=== PATIENT | female | born 1940 | race Caucasian/White ===

== ENCOUNTER → 2020-03-21 | Day surgery (SDC) | payer OTHER ==
--- NOTE | 2020-03-21 13:38 | RAD REPORT ---
EXAM DESCRIPTION: US - Breast Core BX w/US Guidance - 03/21/2020 9:52 am CLINICAL HISTORY: ICD N63.0 COMPARISON: March 11, 2020 ultrasound TECHNIQUE: The risks, benefits alternatives to the procedure were explained to the patient and infor med consent obtained. Skin and subcutaneous tissues anesthetized with lidocaine. Under sonographic guidance, four 14 gauge vacuum assisted core biopsies of the mass within the upper left breast obtained. 2 centimeter specimens taken. Materials given to pathology. Subsequently a localizing clip was placed into the mass. Patient experienced no immediate complication IMPRESSION: Vacuum assisted core biopsies of the left breast mass
== END ==
LOC: DS 08:23
PROVIDERS: ATTEND Family Medicine
DX: C50.912 Malignant neoplasm of unspecified site of left female breast (principal); Z17.0 Estrogen receptor positive status [ER+]
CPT/HCPCS: 19083; 88305

== ENCOUNTER 2023-04-27 11:33 | Inpatient (IN) | payer OTHER ==
--- OUTSIDE RECORDS SUMMARY | 2023-04-27 11:37 | XMS REPORT | Clinical Summary ---
:1940 Author Organization [facility] MD [facility] Address [address] [place] [address] Care Team Providers Name Role Phone Keely Vicente MD Primary Care Provider Shanthi Mckoy MD Unavailable Allergies No known active allergies Medications Medication Sig Dispensed Refills Start End Date Status Date aspirin 81 mg chewable CHEW 1 90 tablet 0 Active tabletIndications: TABLET BY 2 Cardiovascular stress MOUTH test abnormal EVERY DAY NIFEdipine (ADALAT CC) 0 Active 30 MG 24 hr tablet 2 hydroCHLOROthiazide TAKE 1 0 Active (HYDRODIURIL) 12.5 mg TABLET BY 2 tablet MOUTH EVERY DAY atorvastatin (LIPITOR) TAKE 1 30 tablet 0 Active 40 mg tabletIndications: TABLET BY 2 Cardiovascular stress MOUTH test abnormal EVERY DAY alendronate (FOSAMAX) 70 Take 1 12 tablet 4 Active mg tabletIndications: tablet (70 3 Osteoporosis mg) by mouth every 7 days. letrozole (FEMARA) 2.5 TAKE 1 90 tablet 3 Active mg tabletIndications: TABLET BY 3 Lobular carcinoma, NOS MOUTH of overlapping lesion of EVERY DAY breast <Female; Left>, Estrogen receptor positive status (ER+) NIFEdipine (PROCARDIA Take 1 90 tablet 1 11/09/19 Discontinued XL) 30 mg 24 hr tablet (30 0 23 tabletIndications: mg) by Hypertensive urgency mouth daily. hydroCHLOROthiazide TAKE 1 90 tablet 0 11/09/19 Discontinued (HYDRODIURIL) 25 mg TABLET BY 1 23 tabletIndications: MOUTH Essential hypertension EVERY DAY alendronate (FOSAMAX) 70 Take 1 12 tablet 3 08/06 Discontinued mg tabletIndications: tablet (70 1 22 (Reorder) Osteoporosis mg) by mouth every 7 days. letrozole (FEMARA) 2.5 Take 1 90 tablet 3 0 Discontinued mg tabletIndications: tablet 1 22 (Reorder) Infiltrating lobular (2.5 mg) carcinoma of overlapping by mouth sites of left female daily. breast, Estrogen receptor positive status (ER+) memantine (Namenda) 10 Take a 90 tablet 3 0 Discontinued mg tabletIndications: half 2 23 Dementia, not otherwise tablet (5 specified mg) twice a day for 14 days then 1 tablet (10 mg) twice a day. letrozole (FEMARA) 2.5 Take 1 90 tablet 3 0 Discontinued mg tabletIndications: tablet 2 23 Lobular carcinoma, NOS (2.5 mg) of overlapping lesion of by mouth breast <Female; Left>, daily. Estrogen receptor positive status (ER+) alendronate (FOSAMAX) 70 Take 1 4 tablet 0 09/03 Discontinued mg tabletIndications: tablet (70 2 22 Osteoporosis mg) by mouth every 7 days. alendronate (FOSAMAX) 70 TAKE 1 4 tablet 1 09/27 Discontinued mg tabletIndications: TABLET BY 2 22 Osteoporosis MOUTH EVERY 7 DAYS alendronate (FOSAMAX) 70 TAKE 1 4 tablet 0 11/07 Discontinued mg tabletIndications: TABLET BY 2 23 (Reorder) Osteoporosis MOUTH ONE TIME PER WEEK Active Problems Patient Care Coordination Note Formatting of this note might be differe nt from the original. The following people are approved to obt ain medical information about the patient via phone: Contact #1: Name: Denilson Roselyn Contact #2: Name: Phone Number: Contact #3: Name: Phone Number: Contact #4: Name: Phone Number: Problem Noted Date Non-diabetic hyperglycemia 08/12/2020 Atherosclerotic heart disease of [place] coronary arter y without angina 08/05/2020 pectoris Last Assessment & Plan: Formatting of th is note might be different from the original. Patient has a history of coronary artery disease with 50% stenosis of the mid RCA by cardiac catheterization 05/2020 she denies any anginal symptoms. She will therefore continue aspirin 81 mg daily and statin therapy. Dyslipidemia 08/05/2020 Last Assessment & Plan: Formatting of th is note might be different from the original. Lipid panel done 05/10/2020 shows a total cholesterol 228, triglycerides 109, and LDL 158. These labs were done soon after initiation of statin therapy in 04/2020. Healthy lifestyle modifications were rein forced. She will continue atorvastatin 4 0 mg daily. We will obtain follow-up lipid panel prior to her next visit. 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 Patient had a nuclear medicine stress te st 05/03/2020 that was done due to abnormal EKG that was found when she went to the emergency room 04/29 for a controlled hypertension. Stress test showed mild ar ea of ischemia in the mid LAD which is r eversible. Reviewed images were cardiology attending Dr. Bonilla since Dr. Alcazar is on out today. Patient was agreed to have a heart catheterization on Thursday 05/10 to further evaluate coronary fidel belinda. Patient asymptomatic for chest pain or any exertional symptoms. We will start patient on cardioprotective regimen of aspirin 81 milligrams by mouth daily and atorvastatin 40 milligrams by mouth daily. Atherosclerosis of aorta 05/06/2020 Last Assessment & Plan: Formatting of is note might be different from the original. Echocardiogram done on 04/29/2020 showed patient had a moderate amount of atherosclerotic plaques in the descending aorta and also in the setting of positive nuclear medicine stress test we will start tobias rosenthal on atorvastatin 40 milligrams by m outh daily and aspirin 81 milligrams by mouth daily I will repeat lipid panel when patient comes in on Saturday for her left heart catheterization for better guidance of statin therapy. Nicotine dependence 04/29/2020 Essential hypertension 04/28/2020 Last Assessment & Plan: Formatting of th is note might be different from the original. Blood pressure in the office today is 15 . Patient reports home blood pressure SBP is typically run in the 120s to 150s. However SBP is here in the Ismael during recent visits have been in the 150s to 160s. I've therefore added lisinopri l 10 mg daily to her medication regimen. She will also continue nifedipine ER 30 mg daily and hydrochlorothiazide 12.5 mg daily. 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 Cancer Staging: Clinical: Stage IB (cT2, cN0, cM0, G2, ER+, AK+, HER2-) - Signed by Keely Vicente MD on 05/25/2020 Pathologic: Stage Unknown (pT2, pNX, cM0 , G2, ER+, AK+, HER2-) - Signed by Tami Dukes NP on 05/31/2020 Encounters Date Type Specialty Care Team Description 03/01/2023 Refill Cardiology Jake Alcazar Cardiovascul mariela GARCIA stress test abn ormal 03/01/2023 Refill Breast Medical Safari-Hessari, Lobular ca rcinoma, NOS of overlapping lesion of breast <Female; Left>; Oncology TELLY Cooper Estrogen recept or positive status (ER+) 12/12/2022 Follow-Up Breast Medical Carmouche, Lobular carci noma, NOS of overlapping lesion of breast <Female; Left>; Oncology TELLY Valerio 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 us e of aromatase inhibitor 12/12/2022 Travel 11/16/2022 Orders Only Endocrinology Deejay, Osteoporosis ( Primary Dx); TOBIAS Owusu Deficiency of v itamin D3; 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 o f aromatase inhibitor 11/07/2022 Refill Endocrinology Preeti, Osteoporosis BRE Rizo 11/06/2022 Telemedicine Endocrinology Nadia Cramer MD Osteoporosi s (Primary Dx); Non-diabetic hy perglycemia; Deficiency of v itamin D3; 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 o f aromatase inhibitor 11/05/2022 Telephone Endocrinology Sallie Álvarez, BRE 10/30/2022 Refill Cardiology Muhammad, Haspavithra, Cardiovascula r PA stress test abn ormal 10/30/2022 Refill Cardiology Jake Alcazar, Cardiovascul mariela GARCIA stress test abn ormal 10/22/2022 Refill Endocrinology Sanjo, Shivam, Osteoporosis OPERATIONS LABEL CLERK 10/11/2022 Refill Cardiology MouhayarJake, Cardiovascul mariela MD stress test abn ormal 10/10/2022 Orders Only Endocrinology Deejay, Osteoporosis ( Primary Dx); TOBIAS Owusu Deficiency of v itamin D3 09/27/2022 Refill Endocrinology Sanjo, Shivam, Osteoporosis OPERATIONS LABEL CLERK 08/31/2022 Refill Endocrinology Sanjo, Shivam, Osteoporosis OPERATIONS LABEL CLERK 08/28/2022 Telephone Neuro-Oncology Chey Haas RN 08/09/2022 Documentation Cardiology Nieves Amanda RN 08/08/2022 Orders Only Endocrinology Sanjo, Shivam, Osteoporosis ( Primary Dx); OPERATIONS LABEL CLERK Non-diabetic hy perglycemia; Deficiency of v itamin D3; halfway use o f aromatase inhibitor 08/06/2022 Documentation Endocrinology Nieves Hardwick RN 08/06/2022 Refill Endocrinology Nieves Hardwick Osteoporosis Lalita Olson RN 08/05/2022 Refill Cardiology Jake Alcazar, Cardiovascul mariela GARCIA stress test abn ormal 06/29/2022 Refill Cardiology Jake Alcazar [facility] Visit Breast Medical Safari-Niecyari, Lobular ca rcinoma, NOS of overlapping lesion of breast <Female; Left> (Primary Dx); Oncology TELLY Cooper 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; Penny, Estrogen recept or positive status (ER+) TELLY Valerio 06/06/2022 Hospital Encounter Radiology Mely Stack ar carcinoma, NOS of overlapping lesion of breast <Female; Left>; L, OPERATIONS LABEL CLERK halfway use o f aromatase inhibitor 06/06/2022 Travel 05/10/2022 Refill Cardiology Muhammad Hasana, Cardiovascula r PA stress test abn ormal after 04/27/2022 Immunizations Name Administration Dates Next Due Pfizer SARS-CoV-2 Vaccination (Purple Cap) 11/27/2020, 10/09 Surgical History Surgery Date Site/Laterality Comments AK MASTECTOMY SIMPLE COMPLETE 05/26/2020 Breast/Left Pr ocedure: TOTAL MASTECTOMY; Surgeon: Keely Vicente MD; Location: [facility] OR; Service: BREAST Medical History Medical History Date Comments Personal history of stroke 1994 from aneurysm Allergic rhinitis Chronic bronchitis Osteoporosis 2018 Breast cancer 04/2020 Dementia Family History Medical History Relation Name Comments Cervical cancer Daughter CAROLEE ZELAYA Lung cancer Father CARLOS SESAY Lung cancer Mother CHICHO SESAY Breast cancer Neg Hx Ovarian cancer Neg Hx Relation Name Status Comments Daughter CAROLEE ZELAYA Other in 2010 with com plete hysterectomy Father CARLOS SESAY Mother CHICHO SESAY Social History Tobacco Use Types Packs/Day Years Used Date Smoking Tobacco: Every Day Cigarettes 1 59 S tarted: 03/07/1961 Smokeless Tobacco: Never Tobacco Cessation: Ready to Quit: Yes; C ounseling Given: Yes Alcohol Use Standard Drinks/Week Comments Never 0 (1 standard drink = 0.6 oz pure alcoho l) Education Answer Date Recorded What is the highest level of school you have High school gra duate 04/20/2020 completed or the highest degree you have received? Sex Assigned at Date Recorded Female 04/13/2020 5:03 PM CDT Job Start Date Occupation Industry Not on file Not on file Not on file Obstetrics History Para Term AB IAB SAB Ectopic Multiple Living Live Births 4 4 4 4 4 Date Outcome GA Total Labor/2nd/3rd Weight Sex Delivery Anes PTL Kalyani A 1 A5 Name Clin Labor 1959 Term F Vag-Spont Risa ng Complications: None 1961 Term M Vag-Spont Living Complications: None 1964 Term F Vag-Spont Living Complications: None 1971 Term M Vag-Spont Living Complications: None Comments Menarche at age 17 years Para at age 20 years BC 6-7 years total HRT none Breastfeed none Last Filed Vital Signs Vital Sign Reading Time Taken Comments Blood Pressure 118/72 12/12/2022 3:41 PM 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 SPECIALIST Pulse 97 12/12/2022 3:41 PM RETAIL 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 SPECIALIST Temperature 36.7 C (98.1 F) 06/06/2022 12:55 PM CDT Respiratory Rate 18 12/12/2022 3:41 PM RETAIL 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 SPECIALIST Oxygen Saturation 97% 12/12/2022 3:41 PM RETAIL 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 SPECIALIST Inhaled Oxygen Concentration - - Weight 51.9 kg (114 lb 6.7 oz) 12/12/2022 3:41 PM RETAIL 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 SPECIALIST Height - - Body Mass Index 22.17 08/04/2020 11:17 AM CDT Plan of Treatment Date Type Specialty Care Team Description 06/05/2023 Appointment Radiology Rob Francis, OPERATIONS LABEL CLERK [address] [place], [place] [address] (Wo rk) 06/05/2023 Follow-Up Breast Medical Oncology Teodoro Parikh, OPERATIONS LABEL CLERK [address] [place], [place] [address] (Wo rk) Health Maintenance Due Date Last Done Comments COVID-19 Vaccination (3 - Pfizer risk 12/25/2020 11/27/2020 , 11/06/2020 series) Medical Devices Implanted Type Area Substation Manager Device Identifier Shelf Exp iration Model / Date Serial / L ot Aneurysm Clips Description: pt. has aneurysm clips plac ed in no info per Dr. Jeffers DO NOT PROCEED WITH MRI Procedures Procedure Name Priority Date/Time Associated Diagnosis Comme nts MAMMO DIGITAL Routine 06/06/2022 11:42 Lobular carcinoma, Resu lts for this DIAGNOSTIC RIGHT W AM CDT NOS of overlapping pro cedure are in DARSHAN lesion of breast the results <Female; Left> section. halfway use of aromatase inhibitor after 04/27/2022 Results Mammography Digital Diagnostic Right with Darshan (06/06/2022 11:42 AM CDT) Anatomical Region Laterality Modality Breast Right Mammography Specimen (Source) Anatomical Collection Method Collection Time Re ceived Time Location / / Volume Laterality 06/06/2022 11:43 AM CDT Impressions 06/06/2022 11:43 AM CDT There is no mammographic evidence of malignancy. Follow-up mammogram in 1 year is recomme nded. BI-RADS Category 1: Negative Narrative 06/06/2022 11:43 AM CDT CLINICAL INDICATION: Patient is a 81 year old female and is s een for history of breast cancer MAMMO DIGITAL DIAGNOSTIC RIGHT W DARSHAN Digital Mammogram evaluated with Compute r Aided Detection (CAD). COMPARISON: The present examination has been compare d to prior imaging studies performed at an outside location on 02/24/2020, and a [facility] on 04/19/2020 and 04/17/2021. FINDINGS: There are scattered areas of fibroglandu lar density. No dominant mass, distortion, or suspici ous calcifications are identified. There are no significant changes from [facility] prior study. Tomosynthesis performed in CC and MLO pr ojections. Procedure Note Loren Frausto MD - 06/06/2022Format ting of this note might be different from the original. CLINICAL INDICATION: Patient is a 81 year old female and is s een for history of breast cancer MAMMO DIGITAL DIAGNOSTIC RIGHT W DARSHAN Digital Mammogram evaluated with Compute r Aided Detection (CAD). COMPARISON: The present examination has been compare d to prior imaging studies performed at an outside location on 02/24/2020, and a [facility] on 04/19/2020 and 04/17/2021. FINDINGS: There are scattered areas of fibroglandu lar density. No dominant mass, distortion, or suspici ous calcifications are identified. There are no significant changes from [facility] prior study. Tomosynthesis performed in CC and MLO pr ojections. IMPRESSION: There is no mammographic evidence of mal ignancy. Follow-up mammogram in 1 year is recomme nded. BI-RADS Category 1: Negative Mely Stack APRN IMG MAMMOGRAPHY ORDERABLES after 04/27/2022 Insurance Payer Benefit Plan / Subscriber ID Effective Dates Phone Addre ss Type Group AETNA MEDICARE AETNA MEDICARE [id number] 2022-Presen [address] [place] [address] ([address] [place] [address] Advance Directives Code Status Date Activated Date Inactivated Comments Full Code 05/26/2020 1:15 PM 05/27/2020 11:54 AM Code Status Date Activated Date Inactivated Comments Full Code 04/28/2020 1:46 PM 04/29/2020 7:13 PM Care Teams Director Of Aviation Relationship Specialty Start Date End Date Keely Vicente MD PCP - General Breast Surgery 04/20/[address] [place] [id number] Shanthi Mckoy MD Physician Medical Oncology 04/20/[address] [place] [id number]
--- OUTSIDE RECORDS SUMMARY | 2023-04-27 11:38 | XMS REPORT | Continuity of Care Document ---
:1940 Author Organization [facility] t Address [address] [place] [address] [address] [place] [address] Care Team Providers Name Role Phone [phone] Primary Care Physician Unavailable SYSTEM, PROVIDER NOT IN Attending Clinician Unavailable VIOLA CASILLAS Attending Clinician Unavailable ATA BRUNO Attending Clinician Unavailable LILLIE BIRCH Attending Clinician Unavailable Jake Alcazar MD Attending Clinician Chucky Pérez APRN Attending Clinician [phone] [place] Francis APRN Attending Clinician [phone] [place] FRANCIS Attending Clinician Unavailable Francoise Camacho Attending Clinician Sallie Álvarez RN Attending Clinician Unavailable Nadia Cramer MD Attending Clinician NADIA CRAMER Attending Clinician Unavailable Carmen Bolton Attending Clinician Shivam Ewing APRN Attending Clinician Chey Haas RN Attending Clinician Unavailable Nieves Amanda RN Attending Clinician Unavailable Nieves Hardwick RN Attending Clinician Unavailable MELY CASTRO Attending Clinician Unavailable Mely Castro APRN Attending Clinician CHUCKY PÉREZ Attending Clinician Unavailable KARSON HERNÁNDEZ Attending Clinician Unavailable JENIFER CAMARENA Attending Clinician Unavailable JULIET FARRELL Attending Clinician Unavailable BUCKY KOWALSKI Attending Clinician Unavailable LILLIE SPANN Attending Clinician Unavailable EVAN JONES Attending Clinician Unavailable TED MACIAS Attending Clinician Unavailable BECCA DIEHL Attending Clinician Unavailable BYRON OSBORNE Attending Clinician Unavailable SARAH FREEMAN Attending Clinician Unavailable SAM WILLOUGHBY Attending Clinician Unavailable BON RAYMUNDO Attending Clinician Unavailable ABDIRAHMAN MORFIN Attending Clinician Unavailable ATA BRUNO Admitting Clinician Unavailable BON RAYMUNDO Admitting Clinician Unavailable Payers Payer Name Policy Type Policy Number Effective Date Expiration Date S artie MEDICARE PART A [id number] 2006 AND B 00:00:00 [employer] O [id number] 2000 00:00:00 Problems Condition Condition Condition Status Onset Resolution Last Treating Co mments Source Name Details Category Date Date Treatment Clinician Date Non-diabet Non-diabet Disease Active 2019-10 [place] ic ic 1-06 [place] [facility] 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 Patient has a history of coronary artery disease with 50% stenosis of the mid RCA by cardiac catheteri zation 05/2020 she denies any anginal symptoms. She will therefore continue aspirin 81 mg daily and statin therapy. Dyslipidem Dyslipidem Disease Active 2019-10 Last U [place] ia ia 0-30 Assessmen ity of 00:00: t & Plan: [place] 00 Desire GARCIA g of this Anderso note n might be Cancer different Center from the original. Lipid panel done 05/10/2020 shows a total cholester ol 228, triglycer ides 109, and LDL 158. These labs were done soon after initiatio n of statin therapy in 04/2020. Healthy lifestyle modificat ions were reinforce d. She will continue atorvasta tin 40 mg daily. We will obtain follow-up lipid panel prior to her next visit. 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 Uni vers use of use of 0-29 [place] of aromatase aromatase 00:[place] inhibitor inhibitor 00 [place] Maximino mckinney [facility] Coronary Coronary Disease Active Unive rs arterioscl arterioscl 8-19 it y of erosis erosis 00:00: [place] 00 MD Maximino mckinney [facility] Current Current Disease Active Univers use of use of 8-19 ity of aspirin aspirin 00:00: 00 MD Maximino mckinney [facility] Chronic Chronic Disease Active Univers obstructiv obstructiv 8-19 it y of e e 00:00: [place] pulmonary pulmonary 00 disease disease [facility] Impaired Impaired Disease Active Unive rs cognition cognition 8-19 ity of 00:00: 00 MD Maximino mckinney [facility] 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-ca 8-19 it y of eze eze 00:00: [place] malnutriti malnutriti 00 on on [facility] 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 Patient had a nuclear medicine stress test 0 that was done due to abnormal EKG that was found when she went to the emergency room 04/29 for a controlle d hypertens ion. Stress test showed mild area of ischemia in the mid LAD which is reversibl e. Reviewed images were cardiolog y attending Dr. Bonilla since Dr. Alcazar is on out today. Patient was agreed to have a heart catheteri zation on Thursday 05/10 to further evaluate coronary anatomy. Patient asymptoma tic for chest pain or any exertiona l symptoms. We will start patient on cardiopro tective regimen of aspirin 81 milligram s by mouth daily and atorvasta tin 40 milligram s by mouth daily. Atheroscle Atheroscle Disease Active Last U nivers rosis of rosis of 05-06 Assessmen ity of aorta aorta 00:00: t & Plan: [place] Desire bales of this Anderso note n might be Cancer different Center from the original. Echocardi ogram done on 04/29/2020 showed patient had a moderate amount of atheroscl erotic plaques in the descendin g aorta and also in the setting of positive nuclear medicine stress test we will start patient on atorvasta tin 40 milligram s by mouth daily and aspirin 81 milligram s by mouth daily I will repeat lipid panel when patient comes in on Saturday for her left heart catheteri zation for better guidance of statin therapy. Nicotine Nicotine Disease Active Unive rs dependence dependence 04-29 it y of 00:00: MD Maximino mckinney [facility] Essential Essential Disease Active Last Uni vers hypertensi hypertensi 04-28 Assessmen ity of on on 00:00: t & Plan: [place] Desire bales of this Anderso note n might be Cancer different Center from the original. Blood pressure in the office today is 156/68. Patient reports home blood pressure SBP is typically run in the 120s to 150s. However SBP is here in the Ismael during recent visits have been in the 150s to 160s. I've therefore added lisinopri l 10 mg daily to her medicatio n regimen. She will also continue nifedipin e ER 30 mg daily and hydrochlo rothiazid e 12.5 mg daily. Abnormal Abnormal Disease Active Unive rs electrocar electrocar 04-28 it y of diogram diogram 00:00: [place] (ECG) (ECG) 00 (EKG) (EKG) [facility] Estrogen Estrogen Disease Active Unive rs receptor receptor 7-15 ity of positive positive 00:00: [place] status status 00 (ER+) (ER+) [facility] Infiltrati Infiltrati Disease Active U nivers ng lobular ng lobular 7-12 it y of carcinoma carcinoma 00:00[place] of of 00 MD poncho isaac An derso g sites of g sites of n left left Cancer 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 Family History Family Member Diagnosis Comments Start Date Stop Date Source Natural daughter Cervical cancer Uni [facility] [place] [facility] [place] Natural father Lung cancer [facility] [place] [facility] [facility] [place] Natural mother Lung cancer [facility] [place] [facility] r [place] Social History Social Habit Start Date Stop Date Quantity Comments Source History of tobacco 1961-03-07 Smokes tobacco Un iversity of use 00:00:00 daily [place] MD Bazan [facility] Alcohol intake 2022-12-12 2022-12-[address] [facility] University 00:00:00 00:00:00 non-drinker [place] MD Blake mckenzie (finding) [facility] Cigarettes smoked 2020-04-29 2020-04-29 Univers ity of current (pack per 00:00:00 00:00:00 [place] Fauzia Lopez ) - Reported Cancer Ce nter Cigarette 2020-04-29 2020-04-29 University of pack-years 00:00:00 00:00:00 [place] MD Bazan [facility] Tobacco use and 2020-04-29 2020-04-29 Smokeless Universit y of exposure 00:00:00 00:00:00 tobacco non-user [facility] Education 2020-04-20 2020-04-20 13 University of 00:00:00 00:00:00 [place] MD Bazan [facility] Sex [birth year] F Universit y of 00:00:00 00:00:00 [place] MD Bazan [facility] Smoking Status Start Date Stop Date Source Smokes tobacco daily 2020-04-29 00:00:00 Univers ity of [facility] Medications Ordered Filled Start Stop Current Ordering Indication Dosage Frequency Signature Comments Components Source Medication Medication Date Date Medication? Clinician (SIG) Name Name letrozole Yes Estrogen TAKE 1 Un lis (FEMARA) 5-26 receptor TABLET BY it y of 2.5 mg 00:00: positive MOUTH [place] tablet 00 status EVERY DAY (ER+) Maximino mckinney [facility] alendronate Yes Osteoporosi 70mg Take 1 Univers (FOSAMAX) 2- s tablet (70 ity of 70 mg 00:00: mg) by [place] tablet 00 mouth every 7 Anderso days. n [facility] alendronate 2021-10- No Osteoporosi TAKE 1 Univers (FOSAMAX) 2- 02- s TABLET BY ity of 70 mg 00:00: 00:00 MOUTH ONE [place] tablet 00 :00 TIME PER MD WEEK [facility] alendronate 2021-10- No Osteoporosi TAKE 1 Univers (FOSAMAX) 1- 12- s TABLET BY ity of 70 mg 00:00: 00:00 MOUTH [place] tablet 00 :00 EVERY 7 MD DAYS [facility] alendronate 2021-10- No Osteoporosi 70mg Take 1 Univers (FOSAMAX) - 11- s tablet (70 ity of 70 mg 00:00: 00:00 mg) by [place] tablet 00 :00 mouth every 7 [place] days. [facility] letrozole 2022- No Estrogen 2.5mg Take 1 Univers (FEMARA) 8 05-26 receptor tablet ity of 2.5 mg 00:00: 00:00 [place] (2.5 mg) [place] tablet 00 :00 status by mouth (ER+) daily. [facility] atorvastati Yes Cardiovascu TAKE 1 Univers n (LIPITOR) 6-15 lar stress TABLET BY ity of 40 mg 00:00: test MOUTH [place] tablet 00 abnormal EVERY DAY MD Stanton [facility] hydroCHLORO Yes TAKE 1 Univ ers thiazide 2-02 TABLET BY ity of (HYDRODIURI 00:00: MOUTH [place] L) 12.5 mg 00 EVERY DAY MD tiff Stanton [facility] aspirin 81 Yes Cardiovascu CHEW 1 Univers mg chewable 1-26 lar stress TABLET BY ity of tablet 00:00: test MOUTH [place] 00 abnormal EVERY DAY MD Maximino mckinney [facility] NIFEdipine Yes Univers (ADALAT CC) 1-09 ity of 30 MG 24 hr 00:00: [place] tablet 00 MD Stanton [facility] memantine 2022- No Dementia, Take a Univers (Namenda) 1-04 03-08 not half ity of 10 mg 00:00: 00:00 otherwise tablet (5 [place] tablet 00 :00 specified mg) twice MD a day for Anderso 14 days n then 1 Cancer tablet (10 Center mg) twice a day. letrozole 2021- No Estrogen 2.5mg Take 1 Univers (FEMARA) 04-17 receptor tablet ity of 2.5 mg 00:00: 00:00 positive (2.5 mg) [place] tablet 00 :00 status by mouth MD (ER+) daily. [facility] alendronate 2021- No Osteoporosi 70mg Take 1 Univers (FOSAMAX) 02-03 s tablet (70 ity of 70 mg 00:00: 00:00 mg) by [place] tablet 00 :00 mouth MD every 7 [place] days. [facility] hydroCHLORO 2022- No Essential TAKE 1 Univers thiazide 12-06 hypertensio TABLET BY ity of (HYDRODIURI 00:00: 00:00 n MOUTH [place] L) 25 mg 00 :00 EVERY DAY MD tablet [facility] NIFEdipine 2019-10- No Hypertensiv 30mg Take 1 Univers (PROCARDIA 10-15 e urgency tablet (30 ity of XL) 30 mg 00:00: 00:00 mg) by [place] 24 hr 00 :00 mouth MD tablet daily. [facility] Immunizations Ordered Filled Immunization Date Status Comments [facility] Immunization Name Name Pfizer SARS-CoV-2 2020-11-27 Completed Univer sity of Vaccination (Purple 00:00:[address] [place] [facility]) [facility] Center Pfizer SARS-CoV-2 2020-11-06 Completed Univer sity of Vaccination (Purple 00:00:00 [facility]) [facility] Vital Signs Vital Name Observation Time Observation Value Comments Source WEIGHT 2020-10-17 12:23:59 50.9 kg WEIGHT 2020-08-05 15:49:33 50 kg HEIGHT 2020-08-04 11:17:30 153 cm WEIGHT 2020-08-04 11:17:30 49.5 kg WEIGHT 2020-06-08 12:26:00 46.8 kg WEIGHT 2020-05-25 10:30:00 45.8 kg WEIGHT 2020-05-23 11:46:45 46.4 kg WEIGHT 2020-05-03 12:02:00 48.1 kg HEIGHT 2020-05-03 09:48:00 153 cm WEIGHT 2020-05-03 09:48:00 48.1 kg HEIGHT 2020-04-28 15:45:00 153 cm WEIGHT 2020-04-28 15:44:00 48.1 kg Systolic blood 2022-12-12 21:41:20 118 mm[Hg] Univer sity of pressure [place] MD [facility] Diastolic blood 2022-12-12 21:41:20 72 mm[Hg] Unive rsity of pressure [place] MD [facility] Heart rate 2022-12-12 21:41:20 97 /min Universi ty [facility] MD [facility] Respiratory rate 2022-12-12 21:41:20 18 /[facility] Body weight 2022-12-12 21:41:20 51.9 kg Universi ty [facility] MD [facility] BMI 2022-12-12 21:41:20 22.17 kg/m2 Universi ty [facility] MD [facility] Oxygen saturation in 2022-12-12 21:41:20 97 /min [facility] Arterial blood by [place] shoemaker Pulse oximetry [facility] Body temperature 2022-06-06 17:55:47 36.72 Fabiana [facility] Procedures Procedure Date / Time Performed Performing Clinician Sourc e MAMMO DIGITAL 2022-06-06 16:42:19 Mely Castro [facility] DIAGNOSTIC RIGHT W MD [place] TREVINO [place] Plan of Care Planned Activity Planned Date Details Comments Source Future Scheduled 2023-03-01 COVID-19 Vaccination Uni [facility] Test 13:40:45 (3 - Pfizer risk [place] Cancer series) [code = Center COVID-19 Vaccination (3 - Pfizer risk series)] Encounters Start End Encounter Admission Attending Care Care Encounter Source Date/Time Date/Time Type Type Clinicians Facility Department ID 2022-08-16 Outpatient KALEIGH MEI MDA [id number] 13:26:49 PROVIDER [place] mckinney 2020-05-23 Outpatient KALEIGH CASILLAS MDA [id number] 17:50:20 VIOLA mckinney 2020-05-03 Outpatient MDA MDA [id number] 09:47:29 Andaishwarya mckinney 2020-05-02 Outpatient MDA MDA [id number] [facility]:25[facility] 2020-[facility]20 Outpatient ATA RBUNO MDA Breast Judith [id number] 17:32:13 Andaishwarya mckinney 2020-04-20 Outpatient BIRCH, MDA MDA [id number] 14:56:37 LILLIE mckinney 2020-04-20 Outpatient BIRCH, MDA MDA [id number] 14:28:12 LILLIE mckinney 2020-04-18 Outpatient [facility], MDA MDA [id number] 08:19:59 PROVIDER [place] mckinney 2023-03-01 2023-03-01 Refill Ottoniel 1.2.840.1 [id number] Univers 00:00:00 00:00:00 Jake 75971.1.1 ity of 3.412.2.7 [place] .3.976930 .8 [facility] 2023-03-01 2023-03-01 Refill Brunilda 1.2.840.1 [id number] Univers 00:00:00 00:00:00 Chucky stover 03611.1.1 i ty of 3.412.2.7 [place] .3.181647 .8 [facility] 2022-12-12 2022-12-12 Follow-Up Penny 1.2.840.1 [id number] [facility] 16:00:00 16:11:38 Cheyenne 47747.1.1 it y of 3.412.2.7 [place] .3.930649 .8 [facility] 2022-12-12 2022-12-12 Outpatient EL STACEYArlene, MDA MDA [id number] 15:26:18 16:11:38 CHEYENNE Lozano [facility] faye 2022-12-12 2022-12-12 Travel 1.2.840.1 1.2.633.414 [id number] [facility] 00:00:00 00:00:00 19110.1.1 350.1.13.41 ity of 3.412.2.7 2.2.7.3.698 [place] .3.266323 084.8 .8 [facility] 2022-11-16 2022-11-16 Orders Deejay, 1.2.840.1 [id number] Univers 00:00:00 00:00:00 Only Francoise 57258.1.1 ity of 3.412.2.7 [place] .3.293317 .8 [facility] 2022-11-07 2022-11-07 Refill Surima, 1.2.840.1 [id number] Univers 00:00:00 00:00:00 Sallie 54973.1.1 ity of 3.412.2.7 [place] .3.783597 MD Orta8 [facility] 2022-11-06 2022-11-06 [facility] 1.2.840.1 [id number] [facility] 13:30:00 13:48:09 [place] 41321.1.1 ity of 3.412.2.7 [place] .3.379814 MD Orta8 [facility] 2022-11-06 2022-11-06 Outpatient NADIA CRAMER [facility] [id number] 13:04:30 13:48:09 [facility] 2022-11-05 2022-11-05 Telephone Surima, 1.2.840.1 [id number] Univers 00:00:00 00:00:00 Sallie 29320.1.1 ity of 3.412.2.7 [place] .3.187558 MD Orta8 [facility] 2022-10-30 2022-10-30 Refill Muhammad, 1.2.840.1 [id number] Univers 00:00:00 00:00:00 Hasana 98649.1.1 ity of 3.412.2.7 [place] .3.863403 MD Orta8 [facility] 2022-10-30 2022-10-30 Refill Ottoniel 1.2.840.1 [id number] Univers 00:00:00 00:00:00 Jake 27163.1.1 ity of 3.412.2.7 [place] .3.335737 MD [place] [facility] 2022-10-22 2022-10-22 Shivam Brown 1.2.840.1 [id number] Univers 00:00:00 00:00:00 99124.1.1 ity of 3.412.2.7 [place] .3.075181 MD [place] [facility] 2022-10-11 2022-10-11 Georgina Alcazar 1.2.840.1 [id number] Univers 00:00:00 00:00:00 Jake 95020.1.1 ity of 3.412.2.7 [place] .3.599864 MD [place] [facility] 2022-10-10 2022-10-10 Carin Villalba 1.2.840.1 [id number] Univers 00:00:00 00:00:00 Only Francoise 52252.1.1 ity of 3.412.2.7 [place] .3.356301 MD [place] [facility] 2022-09-27 2022-09-27 Shivam Brown 1.2.840.1 [id number] Univers 00:00:00 00:00:00 33680.1.1 ity of 3.412.2.7 [place] .3.563936 MD [place] [facility] 2022-08-31 2022-08-31 Shivam Brown 1.2.840.1 [id number] Univers 00:00:00 00:00:00 01057.1.1 ity of 3.412.2.7 [place] .3.152531 MD [place] [facility] 2022-08-28 2022-08-28 Telephone Waldo, 1.2.840.1 [id number] Univers 00:00:00 00:00:00 Prentiss 12282.1.1 i ty of T 3.412.2.7 [place] .3.338091 MD [place] [facility] 2022-08-09 2022-08-09 Documentat Treasure, 1.2.840.1 [id number] Univers 00:00:00 00:00:00 ion Nieves 29750.1.1 ity of 3.412.2.7 [place] .3.534996 MD Orta8 [facility] 2022-08-08 2022-08-08 Orders Kaylin Shivam 1.2.840.1 [id number] Univers 00:00:00 00:00:00 Only 00834.1.1 ity of 3.412.2.7 [place] .3.441983 MD [place] [facility] 2022-08-06 2022-08-06 Documentat Nieves Hardwick 1.2.840.1 [id number] Univers 00:00:00 00:00:00 ion Lalita O 26280.1.1 i ty of 3.412.2.7 [place] .3.621777 MD [place] [facility] 2022-08-06 2022-08-06 Nieves [place] 1.2.840.1 [id number] Univers 00:00:00 00:00:00 Lalita O 74799.1.1 i ty of 3.412.2.7 [place] .3.795747 MD [place] [facility] 2022-08-05 2022-08-05 Georgina Alcazar 1.2.840.1 [id number] Univers 00:00:00 00:00:00 Jake 26321.1.1 ity of 3.412.2.7 [place] .3.938352 MD [place] [facility] 2022-06-29 2022-06-29 Georgina Alcazar 1.2.840.1 [id number] Univers 00:00:00 00:00:00 Jake 68265.1.1 ity of 3.412.2.7 [place] .3.394346 MD Orta8 [facility] [place] 2022-06-06 2022-06-06 Outpatient SAPNA CASTRO MDA MDA [id number] 10:40:43 23:59:00 MELY mckinney 2022-06-06 2022-06-06 [facility] Sreekanth, 1.2.840.1 [id number] [facility] 10:40:43 23:59:00 Encounter Mely Calvert 58766.1.1 i ty of 3.412.2.7 [place] .3.023915 .8 [facility] 2022-06-06 2022-06-06 Office Chucky Pérez 1.2.840.1 [id number] [facility] 13:00:00 13:30:00 Visit Cheyenne Francis 02942.1.1 ity of 3.412.2.7 [place] .3.150634 MD Orta8 [facility] 2022-06-06 2022-06-06 Outpatient SAPNA DIMAS MDA [employer] [id number] 12:37:06 12:37:06 CHUCKY STOVER And sitao faye 2022-06-06 2022-06-06 Travel 1.2.840.1 1.2.748.410 [id number] Univers 00:00:00 00:00:00 68824.1.1 350.1.13.41 ity of 3.412.2.7 2.2.7.3.698 [place] .3.992358 084.8 MD Orta8 [facility] 2022-05-10 2022-05-10 Refill Muhammad, 1.2.840.1 [id number] [facility] 00:00:00 00:00:00 Hasana 63742.1.1 ity of 3.412.2.7 [place] .3.073991 MD Orta8 [facility] [place] 2021-11-21 2021-11-21 Outpatient SAPNA HERNÁNDEZ MDA MDA [id number] 11:01:18 11:56:01 KARSON mckinney 2021-09-05 2021-09-05 Outpatient SAPNA CAMARENA MDA MDA [id number] 13:49:58 13:49:58 JENIFER mckinney 2021-08-14 2021-08-14 Outpatient SAPNA FARRELL, MDA MDA [id number] MD 10:37:25 10:37:25 JULIET mckinney 2021-04-17 2021-04-17 Outpatient SAPNA HERNÁNDEZ, MDA MDA [id number] MD 09:02:01 23:59:00 KARSON mckinney 2021-04-17 2021-04-17 Outpatient SAPNA HERNÁNDEZ, MDA MDA [id number] MD 11:08:31 11:48:48 KARSON mckinney 2020-11-27 2020-11-27 Outpatient ATA TRAN MDA MDA [id number] MD 11:58:10 12:49:21 [place] mckinney 2020-11-06 2020-11-06 Outpatient SAPNA KOWALSKI, MDA MDA [id number] MD 12:21:40 12:41:08 BUCKY mckinney 2020-10-17 2020-10-17 Outpatient SAPNA FARRELL, MDA MDA [id number] 11:15:00 23:59:00 JULIET mckinney 2020-10-17 2020-10-17 Outpatient SAPNA HERNÁNDEZ, MDA MDA [id number] 12:10:36 13:06:00 KARSON mckinney 2020-08-30 2020-08-30 Outpatient SAPNA CAMARENA, MDA MDA [id number] MD 08:58:09 08:58:09 JENIFER mckinney 2020-08-19 2020-08-19 Outpatient SAPNA CAMARENA, MDA MDA [id number] 11:31:56 11:31:56 JENIFER mckinney 2020-08-16 2020-08-16 Outpatient SAPNA SPANN, MDA MDA [id number] MD 07:45:33 23:59:00 LILLIE mckinney 2020-08-16 2020-08-16 Outpatient SAPNA CAMARENA, MDA MDA [id number] MD 08:40:53 08:40:53 JENIFER mckinney 2020-08-09 2020-08-09 Outpatient SAPNA CAMARENA MDA MDA [id number] 11:14:47 11:14:47 JENIFER mckinney 2020-08-05 2020-08-05 Outpatient SAPNA JONES, MDA MDA [id number] MD 15:42:17 16:25:54 VIANNEYREYNALDOJax Bazan so n 2020-08-04 2020-08-04 Outpatient SAPNA CAMARENA, MDA MDA [id number] MD 12:53:23 12:53:23 JENIFER [place] o [place] 2020-08-04 2020-08-04 Outpatient SAPNA MACIAS, MDA MDA [id number] MD 10:54:25 11:53:55 TED [place] o [place] 2020-08-04 2020-08-04 Outpatient SAPNA SPANN, MDA MDA [id number] MD 09:32:53 10:12:07 LILLIE [place] 2020-07-12 2020-07-12 Outpatient SAPNA CAMARENA, MDA MDA [id number] MD 00:00:00 00:00:00 JENIFER [place] 2020-06-08 2020-06-08 Outpatient SAPNA HERNÁNDEZ, MDA MDA [id number] MD 11:59:30 12:41:48 KARSON Grangerers o n 2020-06-08 2020-06-08 Outpatient ATA TRAN MDA MDA [id number] 11:27:29 11:27:29 [place] o n 2020-06-08 2020-06-08 Outpatient ATA TRAN MDA MDA [id number] 10:30:52 10:30:52 [place] 2020-06-08 2020-06-08 Outpatient ATA TRAN MDA MDA [id number] 00:00:00 00:00:00 [place] 2020-06-01 2020-06-01 Outpatient ATA TRAN MDA MDA [id number] 11:15:07 11:15:07 [place] 2020-05-30 2020-05-30 Outpatient ATA TRAN MDA MDA [id number] MD 00:00:00 00:00:00 [place] 2020-05-26 2020-05-27 Outpatient ATA TRAN MDA Breast Judith 1 [id number] MD 10:14:00 09:12:00 [place] 2020-05-26 2020-05-26 Outpatient SAPNA DIEHL, MDA MDA [id number] 10:18:34 23:59:00 BECCA Grangerers o n 2020-05-25 2020-05-25 Outpatient SAPNA DIEHL, MDA MDA [id number] MD 11:45:41 23:59:00 BECCA mckinney 2020-05-25 2020-05-25 Outpatient ATA TRAN MDA MDA [id number] 10:08:18 11:54:52 [place] m[place] 2020-05-24 2020-05-24 Outpatient COLLEEN, MDA MDA [id number] MD 00:00:00 00:00:00 TED [place] 2020-05-23 2020-05-23 Outpatient ATA TRAN MDA MDA [id number] 15:40:49 15:40:49 [place] 2020-05-23 2020-05-23 Outpatient SAPNA DIEHL, MDA MDA [id number] MD 11:35:30 14:17:18 BECCA mckinney 2020-05-23 2020-05-23 Outpatient SAPNA DIEHL, MDA MDA [id number] MD 11:14:47 11:14:47 BECCA mckinney 2020-05-23 2020-05-23 Outpatient SAPNA DIEHL, MDA MDA [id number] 00:00:00 00:00:00 BECCA [place] 2020-05-20 2020-05-20 Outpatient SAPNA OSBORNE, MDA MDA [id number] MD 00:00:00 00:00:00 BYRON [place] 2020-05-19 2020-05-19 Outpatient SAPNA OSBORNE, MDA MDA [id number] MD 12:06:21 12:06:21 BYRON [place] 2020-05-18 2020-05-18 Outpatient ATA TRAN MDA MDA [id number] 15:17:20 15:17:20 [place] 2020-05-18 2020-05-18 Outpatient SAPNA DIEHL, MDA MDA [id number] MD 00:00:00 00:00:00 BECCA [place] 2020-05-13 2020-05-13 Outpatient SAPNA CAMARENA, MDA MDA [id number] MD 12:34:58 23:59:00 JENIFER [place] 2020-05-13 2020-05-13 Outpatient SAPNA CAMARENA, MDA MDA [id number] 10:13:15 10:13:15 JENIFER [place] o faye 2020-05-10 2020-05-10 Outpatient SAPNA JONES, MDA MDA [id number] MD 09:37:33 23:59:00 VIANNEYDENIS Beni so faye 2020-05-10 2020-05-10 Outpatient SAPNA JONES, MDA MDA [id number] MD 09:11:54 09:36:00 VIANNEYDENIS Beni so faye 2020-05-09 2020-05-09 Outpatient ATA TRAN MDA MDA [id number] MD 15:13:50 15:13:50 [place] 2020-05-06 2020-05-06 Outpatient SAPNA DIEHL, MDA MDA [id number] MD 14:25:16 14:25:16 BECCA [place] 2020-05-06 2020-05-06 Outpatient SAPNA DIEHL, MDA MDA [id number] MD 00:00:00 00:00:00 BECCA mckinney 2020-05-06 2020-05-06 Outpatient ATA TRAN MDA MDA [id number] MD 00:00:00 00:00:00 [place] 2020-05-06 2020-05-06 Outpatient ATA TRAN MDA MDA [id number] MD 00:00:00 00:00:00 [place] 2020-05-06 2020-05-06 Outpatient SAPNA FREEMAN, MDA MDA [id number] MD 00:00:00 00:00:00 SARAH [place] 2020-05-06 2020-05-06 Outpatient SAPNA FREEMAN, MDA MDA [id number] MD 00:00:00 00:00:00 SARAH [place] o faye 2020-05-06 2020-05-06 Outpatient SAPNA DIEHL, MDA MDA [id number] MD 00:00:00 00:00:00 BECCA [place]ange[place] o faye 2020-05-04 2020-05-04 Outpatient ATA TRAN MDA MDA [id number] MD 00:00:00 00:00:00 [place] 2020-05-04 2020-05-04 Outpatient ATA TRAN MDA MDA [id number] MD 00:00:00 00:00:00 [place] 2020-05-04 2020-05-04 Outpatient SAPNA MACIAS, MDA MDA [id number] MD 00:00:00 00:00:00 TED [place] 2020-05-03 2020-05-03 Outpatient EL FAZAL, MDA MDA [id number] MD 10:58:21 23:59:00 BECCA [place] 2020-05-03 2020-05-03 Outpatient EL FARTUN, MDA MDA [id number] MD 11:52:35 13:09:26 SAMArlene [place] 2020-05-03 2020-05-03 Outpatient EL FAZAL, MDA MDA [id number] MD 10:00:00 10:57:00 BECCA Grangerers o faye 2020-05-03 2020-05-03 Outpatient EL FAZAL, MDA MDA [id number] MD 09:28:39 09:59:00 BECCA [place] 2020-05-03 2020-05-03 Outpatient EL FAZAL, MDA MDA [id number] MD 08:49:46 09:27:00 BECCA mckinney 2020-05-03 2020-05-03 Outpatient FAZAL, MDA MDA [id number] MD 07:59:34 08:48:00 BECCA mckinney 2020-04-28 2020-04-29 Outpatient ER WATTANA, MDA Emergency [id number] MD 10:13:00 17:08:00 BON [place] 2020-04-29 2020-04-29 [facility] [id number] MD 09:35:49 09:35:49 BYRON [place] 2020-04-29 2020-04-29 Outpatient ATA BRUNO MDA MDA [id number] MD 09:35:45 09:35:45 [place] 2020-04-29 2020-04-29 Outpatient EL MDA MDA [id number] MD 06:32:13 06:32:13 [place] 2020-04-28 2020-04-28 Emergency MDA MDA [id number] MD 10:53:53 10:53:53 [place] 2020-04-28 2020-04-28 Outpatient ATA TRAN MDA MDA [id number] MD 08:27:43 10:12:00 [place] 2020-04-28 2020-04-28 Outpatient ATA TRAN MDA MDA [id number] MD 08:27:22 10:12:00 [place] 2020-04-28 2020-04-28 Outpatient EL FARTUN, MDA MDA [id number] MD 00:00:00 00:00:00 SAM mckinney 2020-04-28 2020-04-28 Outpatient EL ATA RBUNO MDA MDA [id number] 00:00:00 00:00:00 [place] 2020-04-28 2020-04-28 Outpatient EL PETE, MDA MDA [id number] 00:00:00 00:00:00 SARAH mckinney 2020-04-26 2020-04-26 Outpatient EL COLLEEN, MDA MDA [id number] MD 08:40:06 09:36:30 TED mckinney 2020-04-20 2020-04-20 Outpatient EL SHELBIE, MDA MDA [id number] 11:07:36 11:07:36 ABDIRAHMAN mckinney 2020-04-20 2020-04-20 Outpatient EL BETTY, MDA MDA [id number] 11:06:44 11:06:44 KARSON mckinney 2020-04-20 2020-04-20 Outpatient EL ATA BRUNO MDA MDA [id number] 11:06:17 11:06:17 [place] 2020-04-20 2020-04-20 Outpatient EL PETE, MDA MDA [id number] 11:05:51 11:05:51 SARAH mckinney 2020-04-20 2020-04-20 Outpatient EL PETE, MDA MDA [id number] 00:00:00 00:00:00 SARAH mckinney 2020-04-19 2020-04-19 Outpatient EL FAZAL, MDA MDA [id number] 08:28:22 23:59:00 BECCA mckinney 2020-04-19 2020-04-19 Outpatient EL FAZAL, MDA MDA [id number] 07:34:28 08:27:00 BECAC mckinney 2020-04-19 2020-04-19 Outpatient EL MDA MDA [id number] 07:30:56 07:31:01 [place] m[place]in[place] 2020-04-18 2020-04-18 Outpatient MDA MDA [id number] 16:07:58 16:07:58 [place] 2020-04-18 2020-04-18 Outpatient MDA MDA [id number] MD 16:06:47 16:06:47 [place] 2020-04-18 2020-04-18 Outpatient MDA MDA [id number] MD 16:05:33 16:05:33 [place] 2020-04-18 2020-04-18 Outpatient MDA MDA [id number] MD 16:03:48 16:03:48 [place] 2020-04-18 2020-04-18 Outpatient MDA MDA [id number] MD 16:02:50 16:02:50 [place] 2020-04-18 2020-04-18 Outpatient MDA MDA [id number] MD 16:02:00 16:02:00 [place] 2020-04-16 2020-04-16 Outpatient EL MDA MDA [id number] MD 10:15:09 10:15:09 [place] n Results This patient has no known results.
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
[2023-04-27 12:12] LABS: Hematocrit 36.1 % (36.0-45.0); Lymphocytes % 20.5 % (15.3-44.8); MCV 91.8 fL (80-100); MPV 6.9 fL (7.6-11.3); Platelets 330 thou/uL (152-406); RBC Red Blood Cell Count 3.93 M/uL (3.86-4.86)
[2023-04-27 12:15] LABS: Protime INR 1.07
[2023-04-27 12:28] LABS: Potassium 3.1 mEq/L (3.5-5.1); Troponin High Sensitivity 49.3 pg/mL (<58.9)
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
--- NOTE | 2023-04-27 13:23 | RAD REPORT ---
EXAM DESCRIPTION: Sherie Angio04/27/2023 12:47 pm CLINICAL HISTORY: CVA/left-sided weakness COMPARISON: None TECHNIQUE: 100 cc Isovue 370 was administered intravenously. 3D MIP reconstruction performed All CT scans are performed using dose optimization technique as appropriate and may include automated exposure control or mA/KV adjustment according to patient size. FINDINGS: Severe calcified and noncalcified plaque left carotid bulb Mild plaque common carotid, right internal carotid, external carotid arteries. Mild plaque vertebral arteries No dissection seen IMPRESSION: Severe plaque left carotid bulb results in an approximately results in an approximately 70-75% stenosis NASCET criteria used. Mild 0-49% stenosis Moderate 50-69% stenosis Severe 70-99% stenosis
--- NOTE | 2023-04-27 13:25 | RAD REPORT ---
EXAM DESCRIPTION: Lexie Single View04/27/2023 12:47 pm CLINICAL HISTORY: CVA COMPARISON: 2019 FINDINGS: Mild mid left lung opacities The remainderof the lungs appear clear of acute infiltrate. Old right rib fractures. Heart is normal size IMPRESSION: Mild mid left lung opacities may represent pneumonia. Follow-up chest film in 1 month re commended for re-evaluation
[2023-04-27] MEDS ORDERED: NA CHLORIDE 0.9% 250 ML ONE (14:18)
[2023-04-27] MEDS ORDERED: CEFTRIAXONE 1000 MG/VIAL ONE (14:18)
[2023-04-27] MEDS ORDERED: AZITHROMYCIN 500 MG INJ IVPB ONE (14:18)
--- NOTE | 2023-04-27 14:43 | ER ---
Nurse's Notes [facility] Name: Shae Schmidt Age: 82 yrs Sex: Female : 1940 Arrival Date: 04/27/2023 Time: 11:33 Bed 3 Private MD: Diagnosis: Pneumonia, unspecified organism;Cerebrovascular disease, unspecified Presentation: 04/27 11:35 Chief complaint: EMS states: L sided weakness and L facial droop, also unable to ss swallow. Last known well was at 0000 on 04/27/23. Coronavirus screen: Client denies travel out of the [place] in the last 14 days. Ebola Screen: Patient denies exposure to infectious person. Patient denies travel to an Ebola-affected area in the 21 days before illness onset. Initial Sepsis Screen: Does the patient meet any 2 criteria? No. Patient's initial sepsis screen is negative. Does the patient have a suspected source of infection? No. Patient's initial sepsis screen is negative. Risk Assessment: Do you want to hurt yourself or someone else? Patient reports no desire to harm self or others. Onset of symptoms is unknown. Care prior to arrival: IV initiated. 20 GA, in the right antecubital area, Glucose check: 147. 11:35 Method Of Arrival: EMS: [facility] 11:35 Acuity: ROM 2 ss Triage Assessment: 12:24 Pain: Denies pain. ap3 Historical: - Allergies: 11:39 No Known Allergies; ss - Home Meds: 11:37 metformin 750 mg Oral Tablet, Extended Release 24 hr 2 times per day [Active]; ap3 alendronate 70 mg oral tablet [Active]; aspirin 81 mg Oral capsule daily [Active]; atorvastatin oral [Active]; hydrochlorothiazide 25 mg Oral tablet [Active]; letrozole 2.5 mg oral tablet [Active]; nifedipine 30 mg Oral tablet, extended release [Active]; - PMHx: 11:39 Dementia; ss 11:39 Breast Cancer; aa5 - PSHx: 11:39 Left mastectomy; aa5 - Immunization history:: unknown. - Social history:: Smoking status: Patient denies any tobacco usage or history of. Screenin:24 Abuse screen: Denies threats or abuse. Nutritional screening: No deficits noted. ap3 Tuberculosis screening: No symptoms or risk factors identified. 17:41 [facility] ED Fall Risk Assessment (Adult) History of falling in the last 3 months, ap3 including since admission Yes- fall prone (multiple falls) (3 pts) Confusion or Disorientation Yes (5 pts) Intoxicated or Sedated No (0 pts) Impaired Gait Yes (1 pt) Altered Elimination Yes (1 pt) Score/Fall Risk Level 3 or more points = High Risk. Assessment: 11:35 Reassessment: in CT. ss 12:24 General: Appears in no apparent distress. Behavior is calm. Neuro: Level of ap3 Consciousness is awake, alert, Oriented to person. Cardiovascular: Patient's skin is warm and dry. Respiratory: Airway is patent Respiratory effort is even, unlabored, Respiratory pattern is regular, symmetrical. 14:17 Reassessment: Awaiting phlebotomy to collect blood cultures, pt is a hard stick, can aa5 only use right arm due to Left mastectomy. . 14:45 Reassessment: Dr. Cramer and Dr. Bocanegra at bedside speaking to pt's family. . aa5 16:17 Reassessment: lab at bedside. aa5 16:44 Reassessment: attempted to call report to receiving nurse. was instructed they would ap3 return my call. 16:58 Reassessment: report given to BRE Wu on [facility]. ap3 Vital Signs: 12:23 BP 161 / 75; Pulse 82; Resp 19 S; Pulse Ox 100% on R/A; ap3 13:56 BP 133 / 55; Pulse 68; Resp 17; Pulse Ox 98% on R/A; ap3 14:28 BP 125 / 60; Pulse 79; Resp 20; Pulse Ox 100% on R/A; ap3 ED Course: 11:35 Patient arrived in ED. ap3 11:37 Pato Cramer is Attending Physician. sk4 11:39 Triage completed. ss 11:40 Jerri Wilkins RN is Primary Nurse. ap3 11:53 IV 20G to R AC by EMS, catheter noted to be out, IV dc'd, pressure dressing applied. . aa5 11:55 Missed attempt(s): 22 gauge in right forearm. Bleeding controlled, band aid applied, aa5 catheter tip intact. 12:00 Inserted saline lock: 22 gauge in right wrist, using aseptic technique. aa5 12:24 Patient has correct armband on for positive identification. Placed in gown. Bed in low ap3 position. Call light in reach. Side rails up X2. Adult w/ patient. devil dog on. Pulse ox on. NIBP on. 12:24 Arm band placed on left wrist. ap3 12:26 Pt visited by son. ap3 12:48 CT Head Angio In Process Unspecified. EDMS 12:49 Stroke CXR 1 View In Process Unspecified. EDMS 12:49 CT Neck Angio In Process Unspecified. EDMS 14:39 Claude Bocanegra MD is Hospitalizing Provider. sk4 16:58 No provider procedures requiring assistance completed. Patient admitted, IV remains in ap3 place. 16:59 Provided Education on: medications prior to administration, and admission education. ap3 Administered Medications: 16:51 Drug: Rocephin IV 1 grams Route: IV; Rate: bolus; Site: right hand; ap3 17:04 Follow up: Response: No adverse reaction; IV Status: Completed infusion ap3 17:04 Drug: Zithromax IVPB 500 mg Route: IVPB; Infused Over: 1 hrs; Site: right hand; ap3 17:42 Follow up: IV Status: Infusion continued upon admission ap3 17:22 Drug: Aspirin MI Suppository 300 mg Route: MI; ap3 17:42 Follow up: Response: No adverse reaction ap3 Medication: 12:59 VIS not applicable for this client. ap3 Outcome: 14:42 Decision to Hospitalize by Provider. sk4 16:59 Admitted to Med/surg ap3 16:59 Condition: good 16:59 Instructed on the need for admit. 17:41 Patient left the ED. ap3 Signatures: Dispatcher [employer] EDMS Allie Reyes, RN RN aa5 Carol Goldman RN RN Jerri Spaulding RN RN ap3 Pato Cramer sk4 Corrections: (The following items were deleted from the chart) 11:40 11:35 Chief complaint: EMS states: L sided weakness and L facial droop. Last known well ss was at 0000 on 04/27/23. ss
--- NOTE | 2023-04-27 14:43 | EDPHYS ---
Physician Documentation [facility] Name: Shae Schmidt Age: 82 yrs Sex: Female : 1940 Arrival Date: 04/27/2023 Time: 11:33 Bed 3 Private MD: ED Physician Pato Cramer HPI: 04/27 12:18 This 82 yrs old Female presents to ER via EMS with complaints of S/S of Possible Stroke.sk4 12:18 PT HERE FROM EMS FOR POSSIBLE STROKE. FAMILY REPORTS LAST SEEN NORMAL AROUND MIDNIGHT sk4 LAST NIGHT. AT 10AM NOTICED LEFT ARM CONTRACTED, FACIAL DROOP, AND NOT COMMUNICATING LIKE NORMAL. PT NOT ABLE TO PROVIDE ANY HISTORY. PER EMS, HISTORY OF HTN, DM, HIGH CHOLESTEROL. IS ON BABY ASA DAILY. NO OTHER BLOOD THINNERS. NO RECENT FALL/TRAUMA REPORTED. . Historical: - Allergies: 11:39 No Known Allergies; ss - Home Meds: 11:37 metformin 750 mg Oral Tablet, Extended Release 24 hr 2 times per day [Active]; ap3 alendronate 70 mg oral tablet [Active]; aspirin 81 mg Oral capsule daily [Active]; atorvastatin oral [Active]; hydrochlorothiazide 25 mg Oral tablet [Active]; letrozole 2.5 mg oral tablet [Active]; nifedipine 30 mg Oral tablet, extended release [Active]; - PMHx: 11:39 Dementia; ss 11:39 Breast Cancer; aa5 - PSHx: 11:39 Left mastectomy; aa5 - Immunization history:: unknown. - Social history:: Smoking status: Patient denies any tobacco usage or history of. ROS: 12:18 Unable to obtain ROS due to patient's speech is incomprehensible. sk4 Exam: 12:18 Radiologist reports: POSSIBLE FRONTAL INFARCT sk4 12:18 Head/Face: Normocephalic, atraumatic. Eyes: Pupils equal round and reactive to light, extra-ocular motions intact. Neck: Trachea midline Chest/axilla: Normal chest wall appearance and motion. Nontender with no deformity. No lesions are appreciated. Cardiovascular: Regular rate and rhythm with a normal S1 and S2. No gallops, murmurs, or rubs. Normal PMI, no JVD. No pulse deficits. Respiratory: Lungs have equal breath sounds bilaterally, clear to auscultation Abdomen/GI: Soft, non-tender Skin: Warm, dry Neuro: Awake and alert. EYES OPEN, LOOKING AROUND. TRIES TO FOLLOW COMMANDS AND ANSWER. SPEECH VERY DYSARTHRIC. ONLY ATTEMPTS NAME. DOESN'T ATTEMPT TO ANSWER OTHER QUESTIONS. STRENGTH 5/5 BILAT UE/LE BUT LEFT ARM IS CONTRACTED AT ELBOW. LEFT FACIAL DROOP PRESENT. PERRL. WON'T FOLLOW EYE MOVEMENTS OR STICK OUT TONGUE. Vital Signs: 12:23 BP 161 / 75; Pulse 82; Resp 19 S; Pulse Ox 100% on R/A; ap3 13:56 BP 133 / 55; Pulse 68; Resp 17; Pulse Ox 98% on R/A; ap3 14:28 BP 125 / 60; Pulse 79; Resp 20; Pulse Ox 100% on R/A; ap3 MDM: 11:37 Patient medically screened. sk4 12:18 Differential diagnosis: CVA, TIA. Data reviewed: vital signs, nurses notes, lab test sk4 result(s), EKG, radiologic studies. Consideration of Admission/Observation Patient was admitted/placed on observation. Management of patient was discussed with the following: Hospitalist: ADMISSION. I considered the following discharge prescriptions or medication management in the emergency department Medications were administered in the Emergency Department. See MAR. Discussion of test interpretation with radiology: I had a discussion with radiology regarding a test interpretation. CT FINDINGS. ED course: CODE STROKE CALLED. TAKEN STRAIGHT TO CT. RESULTS NOTED. GIVEN SIGNIFICANT DYSARTHRIA, ASA ADMINISTERED RECTALLY.. 04/27 12:07 Order name: Glucose, Ancillary Testing; Complete Time: 12:17 EDFL 04/27 12:16 Order name: CBC with Automated Diff; Complete Time: 12:17 EDMS 04/27 12:16 Order name: Protime (+INR); Complete Time: 12:17 EDMS 04/27 12:16 Order name: PTT, Activated Partial Thromb; Complete Time: 12:17 EDMS 04/27 12:28 Order name: Basic Metabolic Panel; Complete Time: 12:45 EDMS 04/27 12:28 Order name: Troponin High Sensitivity; Complete Time: 12:45 EDMS 04/27 12:32 Order name: Basic Metabolic Panel EDFL 04/27 12:32 Order name: Troponin High Sensitivity EDFL 04/27 12:32 Order name: CBC with Automated Diff EDFL 04/27 12:32 Order name: Protime (+INR) EDMS 04/27 12:32 Order name: PTT, Activated Partial Thromb EDFL 04/27 12:32 Order name: Glucose, Ancillary Testing [facility] 04/27 13:57 Order name: Blood Culture Adult (2) [facility] 04/27 15:41 Order name: Basic Metabolic Panel [facility] 04/27 15:41 Order name: Basic Metabolic Panel [facility] 04/27 15:41 Order name: CBC with Automated Diff [facility] 04/27 15:41 Order name: CBC with Automated Diff [facility] 04/27 15:41 Order name: Magnesium EDFL 04/27 15:41 Order name: Magnesium EDFL 04/27 15:41 Order name: Phosphorus EDFL 04/27 15:41 Order name: Phosphorus [facility] 04/27 11:38 Order name: Stroke CXR 1 View; Complete Time: 13:52 [facility] 04/27 11:38 Order name: CT Head Angio; Complete Time: 13:52 [facility] 04/27 12:11 Order name: CT; Complete Time: 12:17 [facility] 04/27 12:13 Order name: CT Neck Angio; Complete Time: 13:52 [facility] 04/27 12:31 Order name: Ct Stroke Brain Wo Cont [facility]FL 04/27 11:38 Order name: EKG; Complete Time: 12:26 [facility] 04/27 15:41 Order name: CONS Physician Consult [facility] 04/27 15:41 Order name: Physical Therapy Consult [facility] 04/27 15:41 Order name: NPO [facility] 04/27 15:42 Order name: Occupational Therapy Consult [facility] 04/27 15:42 Order name: Speech Therapy Consult [facility] 04/27 11:38 Order name: Accucheck; Complete Time: 12:04 [facility] 04/27 11:38 Order name: Cardiac monitoring; Complete Time: 12:04 [facility] 04/27 11:38 Order name: EKG - Nurse/Tech; Complete Time: 12:04 [facility] 04/27 11:38 Order name: IV Saline Lock; Complete Time: 12:04 [facility] 04/27 11:38 Order name: Labs collected and sent; Complete Time: 12:04 [facility] 04/27 11:38 Order name: NPO; Complete Time: 12:04 [facility] 04/27 11:38 Order name: O2 Per Protocol; Complete Time: 12:04 [facility] 04/27 11:38 Order name: O2 Sat Monitoring; Complete Time: 12:04 [facility] 04/27 11:38 Order name: Stroke Swallow Screen; Complete Time: 12:04 [facility] Administered Medications: 16:51 Drug: Rocephin IV 1 grams Route: IV; Rate: bolus; Site: right hand; ap3 17:04 Follow up: Response: No adverse reaction; IV Status: Completed infusion ap3 17:04 Drug: Zithromax IVPB 500 mg Route: IVPB; Infused Over: 1 hrs; Site: right hand; ap3 17:42 Follow up: IV Status: Infusion continued upon admission ap3 17:22 Drug: Aspirin CT Suppository 300 mg Route: CT; ap3 17:42 Follow up: Response: No adverse reaction ap3 Disposition Summary: 04/27/23 14:42 Hospitalization Ordered Hospitalization Status: Inpatient Admission [facility] Provider: Claude Bocanegra [facility] Location: Telemetry/[facility] (Inpatient) [facility] Condition: Stable [facility] Problem: new [facility] Symptoms: are unchanged [facility] Bed/Room Type: Standard [facility] Room Assignment: 203(04/27/23 16:05) eb Diagnosis - Pneumonia, unspecified organism sk4 - Cerebrovascular disease, unspecified [facility] Forms: - Medication Reconciliation Form 4 - SBAR form [facility] Signatures: Dispatcher [employer] EDAllie Tolbert RN RN aa5 Carol Goldman RN RN ss Jerri Wilkins RN RN ap3 Teri Tucker [facility] Corrections: (The following items were deleted from the chart) 12:34 12:25 CT-STROKE BRAIN W/O CONTRAST+CT.RAD.BRZ ordered. EDMS EDMS 12:41 12:25 BASIC METABOLIC PANEL+C.LAB.BRZ ordered. EDMS EDMS 12: 12:25 CBC+H.LAB.BRZ ordered. EDMS EDMS 12:41 12:25 Troponin High Sensitivity+C.LAB.BRZ ordered. EDMS EDMS 12:41 12:25 PROTIME (+INR)+COAG.LAB.BRZ ordered. EDMS EDMS 12:41 12:25 PTT, ACTIVATED+COAG.LAB.BRZ ordered. EDMS EDMS 16:05 14:42 [facility] eb
--- NOTE | 2023-04-27 15:47 | P.HP ---
Certification for Inpatient Patient admitted to: Inpatient With expected LOS: >2 Midnights Patient will require the following post-hospital care: None Practitioner: I am a practitioner with admitting privileges, knowledge of patient current condition, hospital course, and medical plan of care. Services: Services provided to patient in accordance with Admission requirements found in Title 42 Section 412.3 of the Code of Federal Regulations Patient History Date of Service: 04/27/23 Primary Care Provider: Sedrick Muñoz Reason for admission: Acute CVA History of Present Illness: Ms. Shae Schmidt is a 82 year old female who has a past medical history of brain aneurysm s/p clipping (1994), breast cancer s/p left mastectomy (2019), type 2 diabetes mellitus, dyslipidemia, hypertension, osteoporosis, and mild dementia who presents to the [facility] Emergency Department for a left-sided facial droop and left-sided upper/lower extremity weakness. She has significant expressive aphasia and is unable to provide any history. Her son, Mr. Jose Moreira (stated MPOA), and her [id number], Mrs. Sarahy Moreiar were at bedside and provided a majority of the history. They report her last known normal to be at 03:00 AM. This morning, around 10:00 AM, they noted that she had an abnormal gaze, left facial droop, and leftsided weakness. They called 9--1 and she was brought to the Emergency Department for expedited evaluation. Upon presentation, a CODE STROKE was called. Her vital signs were stable. Her laboratory studies were notable for a potassium of 3.1. Her EKG revealed atrial fibrillation. Her chest x-ray revealed, "mild mid left lung opacities may represent pneumonia. Follow-up chest film in 1 month recommended for re- evaluation." Her CT head revealed, "vague low-density area right frontal lobe is equivocal for an acute infarction." Her CT head angiogram revealed, "several peripheral branches right middle cerebral artery diminished in caliber. No large vessel occlusion Moderate stenosis distal right internal carotid artery." Her CT neck angiogram revealed, "severe plaque left carotid bulb results in an approximately results in an approximately 70-75% stenosis." She was admitted to the General Internal Medicine service for further evaluation. Allergies No Known Allergies Allergy (Unverified 04/27/23 15:47) Home medications list reviewed: Yes Home Medications: Alendronate Sodium [Binosto] 70 mg PO Q7D 04/27/23 Aspirin Chewable [Aspirin Chewable*] 81 mg PO DAILY 04/27/23 Atorvastatin Calcium [Lipitor] 40 mg PO BEDTIME 04/27/23 Calcium Carbonate/Vitamin D3 [Calcium 600 with Vit D Chew Tb] 600 mg PO DAILY 04/27/23 Letrozole [Femara] 2.5 mg PO DAILY 04/27/23 Nifedipine [Nifedipine ER] 30 mg PO 04/27/23 RX: Metformin HCl 500 mg PO BID 04/27/23 RX: hydroCHLOROthiazide [Hydrochlorothiazide] 25 mg PO DAILY 04/27/23 - Past Medical/Surgical History Diabetic: Yes -: Hypertension -: Type II Diabetes Mellitus -: Mild Dementia -: Dyslipidemia -: Osteoporosis -: Left Breast Cancer -: Left Mastectomy (2019) -: Brain Anuerysm Clip (1994) - Family History Family History: Reviewed- Non-Contributory - Social History Smoking Status: Former smoker Alcohol use: No CD- Drugs: No Review of Systems is unable to be obtained Physical Examination - Vital Signs Blood Pressure: 125/60 Pulse: 79 Respirations: 20 Pulse Ox (%): 100 - Physical Exam General: Alert, In no apparent distress, Other (expressive aphasia) HEENT: Atraumatic, Sclerae nonicteric Neck: JVD not distended Respiratory: Diminished, Rhonchi/gurgles (scattered) Cardiovascular: No edema, No murmurs, Irregular heart rate/rhythm Gastrointestinal: Normal bowel sounds, Soft and benign, Non-distended, No tenderness, No rebound, No guarding Musculoskeletal: No clubbing Integumentary: No rashes Neurological: Sensation intact, Abnormal speech (expressive aphasia), Abnormal strength (2/5 strength in LUE/LLE, 5/5 strength in RUE/RLE), Abnormal cranial nerve function (left lower facial droop) - Studies Laboratory Data (last 24 hrs) 04/27/23 12:34: PT Cancelled, INR Cancelled, APTT Cancelled 04/27/23 12:34: WBC Cancelled, Hgb Cancelled, Hct Cancelled, Plt Count Cancelled 04/27/23 12:34: Sodium Cancelled, Potassium Cancelled, BUN Cancelled, Creatinine Cancelled, Glucose Cancelled 04/27/23 11:58: PT 11.8, INR 1.07, APTT 22.7 L 04/27/23 11:58: WBC 9.80, Hgb 11.7 L, Hct 36.1, Plt Count 330 04/27/23 11:58: Sodium 137, Potassium 3.1 L, BUN 15, Creatinine 0.64, Glucose 175 H Assessment and Plan - Plan NIH Stroke Scale 1a. Level of consciousness: 0 - Alert; keenly responsive 1b. LOC questions: 2 - aphasic 1c. LOC commands: 0 - Performs both tasks 2. Best Gaze: 0 - Normal 3. Visual: 0 - No visual loss 4. Facial Palsy: 2 - partial paralysis (lower face) 5a. Motor left arm: 2 - some effort against gravity 5b. Motor right arm: 0 - No drift for 10 seconds 6a. Motor left le - some effort against gravity 6b. Motor right le - No drift for 5 seconds 7. Limb ataxia: 0 - No ataxia 8. Sensory: 0 - Normal; no sensory loss 9. Best Language: 2 - severe expressive aphasia 10. Dysarthria: 2 - severe dysarthria 11. Extinction and Inattention: 0 - No abnormality 12. 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 Recinos - recommendations appreciated - Recommended aspirin, folic acid, atorvastatin, and enoxaparin - NIHSS = 12 - Radiology: - CT head = "vague low-density area right frontal lobe is equivocal for an acute infarction." - CT head angiogram = "several peripheral branches right middle cerebral artery diminished in caliber. No large vessel occlusion Moderate stenosis distal right internal carotid artery." - CT neck angiogram = "severe plaque left carotid bulb results in an approximately results in an approximately 70-75% stenosis." - Unable to obtain MRI given prior brain aneurysm clipping - Allow permissive hypertension for tonight - Hold home hydrochlorothiazide, nifedipine - Ordered transthoracic echocardiogram - PT/OT/SUPERVISOR FILM PROCESSING evaluation requested - q4hr neurochecks - Ordered risk profile: Hgb A1c, lipid panel, TSH # Community Acquired Pneumonia - Evaluation thus far: - Does not meet sepsis criteria - Procalcitonin = pending - Chest x-ray = "mild mid left lung opacities may represent pneumonia. Follow-up chest film in 1 month recommended for re-evaluation." - Management plan: - Started ceftriaxone + azithromycin - Consulted Respiratory Therapy - Supplemental oxygen to maintain SpO2 > 92% - PRN anti-tussives # Paroxysmal Atrial Fibrillation Her [id number] = 6 (HTN=1, Age>75=2, DM=1, CVA=1, Sex=1), which warrants anticoagulation. - Intermitently in atrial fibrillation - with no known history - Consulted Cardiology - recommendations appreciated - Started enoxaparin - Currently rate-controlled without medication # Breast Cancer s/p Left Mastectomy (2019) - Hold home letrozole # Type II Diabetes Mellitus - Ordered Hgb A1c - Correction scale insulin - Hold home metformin # Osteoporosis - Hold home calcium, vitamin D, alendronate Claude Bocanegra M.D. - Advance Directives Does patient have a Living Will: No Does patient have a Durable POA for Healthcare: No
[2023-04-27] MEDS ORDERED: ASPIRIN 300 MG/SUPP PR ONE (16:00)
[2023-04-27] MEDS ORDERED: GLUCAGON 1 MG/VIAL IM PRN (16:34)
[2023-04-27] MEDS ORDERED: D50W 25 GM/50 ML SYRINGE IV PRN (16:34)
[2023-04-27] MEDS ORDERED: D10W 125 ML IV PRN (16:37)
[2023-04-27 18:15] VITALS: BMI 19.5
[2023-04-27] MEDS: ENOXAPARIN 60 MG/0.6 ML SQ SCH (18:42)
[2023-04-27] MEDS: ATORVASTATIN 40 MG TAB PO SCH (21:00)
[2023-04-27] MEDS: INSULIN -REGULAR HUMAN 50 UNIT/0.5 ML ML SQ SCH (21:00)
[2023-04-28] MEDS: INSULIN -REGULAR HUMAN 50 UNIT/0.5 ML ML SQ SCH ×4 (07:30→21:00)
[2023-04-28 08:43] LABS: Absolute Lymphocytes (CBC) 3.1 K/uL (0.7-4.9); Hematocrit 36.8 % (36.0-45.0); Lymphocytes % 39.7 % (15.3-44.8); MPV 6.8 fL (7.6-11.3); Platelets 288 thou/uL (152-406)
[2023-04-28] MEDS: FOLIC ACID 1 MG TABLET PO SCH (09:00)
[2023-04-28] MEDS: ASPIRIN 81 MG CHEWABLE TABLET PO SCH (09:00)
[2023-04-28 09:03] LABS: Magnesium 1.8 mg/dL (1.6-2.4); Phosphorus 2.7 mg/dL (2.5-4.9); Potassium 3.4 mEq/L (3.5-5.1); Thyroid Stimulating Hormone 0.639 uIU/mL (0.358-3.740)
[2023-04-28] MEDS: AZITHROMYCIN IV 500 MG in NA CHLORIDE 0.9% 250 ML IVPB SCH (09:25)
[2023-04-28] MEDS: CEFTRIAXONE 1,000 MG in NA CHLORIDE 0.9% 50 ML IVPB SCH (09:26)
[2023-04-28] MEDS: ENOXAPARIN 60 MG/0.6 ML SQ SCH ×2 (09:26→20:45)
[2023-04-28] MEDS: D5LR 1,000 ML IV SCH (12:22)
--- NOTE | 2023-04-28 16:48 | P.PN ---
Subjective Date of Service: 04/28/23 Primary Care Provider: Sedrick Muñoz Chief Complaint: Acute CVA No acute events overnight. She has not exhibited much neurologic recovery at this time. She continues to experience expressive aphasia. No further history available at this time. Review of Systems is unable to be obtained Physical Examination - Vital Signs Temperature: 99.3 F Blood Pressure: 148/65 Pulse: 63 Respirations: 14 Pulse Ox (%): 97 Assessment And Plan - Plan - Physical Exam General: Alert, In no apparent distress, Other (expressive aphasia) HEENT: Atraumatic, Sclerae nonicteric Respiratory: Diminished, Rhonchi/gurgles (scattered) Cardiovascular: No edema, No murmurs, Irregular heart rate/rhythm Gastrointestinal: Soft and benign, Non-distended, No tenderness Musculoskeletal: No clubbing Integumentary: No rashes Neurological: Sensation intact, Abnormal speech (expressive aphasia), Abnormal strength (2/5 strength in LUE/LLE, 5/5 strength in RUE/RLE), Abnormal cranial nerve function (left lower facial droop) NIH Stroke Scale 1a. Level of consciousness: 1 - arouses to minor stimulation 1b. LOC questions: 2 - aphasic 1c. LOC commands: 0 - Performs both tasks 2. Best Gaze: 0 - Normal 3. Visual: 0 - No visual loss 4. Facial Palsy: 2 - partial paralysis (lower face) 5a. Motor left arm: 2 - some effort against gravity 5b. Motor right arm: 0 - No drift for 10 seconds 6a. Motor left le - some effort against gravity 6b. Motor right le - No drift for 5 seconds 7. Limb ataxia: 0 - No ataxia 8. Sensory: 0 - Normal; no sensory loss 9. Best Language: 2 - severe expressive aphasia 10. Dysarthria: 2 - severe dysarthria 11. Extinction and Inattention: 0 - No abnormality 12. Distal motor function: 0 - No abnormality Total Score: 13 # Acute Right Frontal Lobe Cerebrovascular Accident # Brain Aneurysm s/p Clipping (1994) # Severe Left Carotid Artery Stenosis # Moderate Distal Right Internal Carotid Artery Stenosis # Mild Dementia # Hypertension # Dyslipidemia - Consulted Neurology and spoke with Dr. Recinos - recommendations appreciated - Recommended aspirin, folic acid, atorvastatin, and enoxaparin - NIHSS = 13 - Radiology: - CT head = "vague low-density area right frontal lobe is equivocal for an acute infarction." - CT head angiogram = "several peripheral branches right middle cerebral artery diminished in caliber. No large vessel occlusion Moderate stenosis distal right internal carotid artery." - CT neck angiogram = "severe plaque left carotid bulb results in an approximately results in an approximately 70-75% stenosis." - Unable to obtain MRI given prior brain aneurysm clipping - Hold home hydrochlorothiazide, nifedipine - Ordered transthoracic echocardiogram - PT/OT/FREIGHT RATE ANALYST evaluation requested - q4hr neurochecks - Ordered risk profile: - Hgb A1c = 6.3 % - Lipid panel = TC 142, LDL 75, HDL 41, TG 130 - TSH = 0.639 # Possible Community Acquired Pneumonia - Evaluation thus far: - Does not meet sepsis criteria - Procalcitonin = <0.05 - Chest x-ray = "mild mid left lung opacities may represent pneumonia. Follow-up chest film in 1 month recommended for re-evaluation." - Management plan: - Started ceftriaxone + azithromycin - Consulted Respiratory Therapy - Supplemental oxygen to maintain SpO2 > 92% - PRN anti-tussives # Paroxysmal Atrial Fibrillation Her [id number] = 6 (HTN=1, Age>75=2, DM=1, CVA=1, Sex=1), which warrants anticoagulation. - Intermitently in atrial fibrillation - with no known history - Consulted Cardiology - recommendations appreciated - Continue enoxaparin - Currently rate-controlled without medication # Breast Cancer s/p Left Mastectomy (2019) - Hold home letrozole # Type II Diabetes Mellitus - Hgb A1c = 6.3 % - Correction scale insulin - Hold home metformin # Osteoporosis - Hold home calcium, vitamin D, alendronate Claude Bocanegra M.D.
--- NOTE | 2023-04-28 20:39 | P.PN ---
Date of Service: 04/29/23 Subjective: Chart has been reviewed. Events of the last 24 hours of been noted. Continue with current plan of care and try to work-up patient's acute CVA and try to get patient to rehab. ROS: 10 point ROS as noted above, otherwise negative Physical Exam: Gen: Alert, NAD, expressive aphasia HEENT: normal conjunctiva, sclera anicteric CV: Irregular heart rate/rhythm, no edema Pulm: non-labored respirations on room air, diminished at bases b/l, Rhonch i/gurgles Abd: soft, non-tender, non-distended MSK: no joint tenderness Neuro: Abnormal strength (2/5 strength in LUE/LLE, 5/5 strength in RUE/RLE) left lower facial droop, expressive aphasia NIHSS: 12 Problem List: 1. Acute Right Frontal Lobe Cerebrovascular Accident 2. Brain Aneurysm s/p Clipping (1994) 3. Severe Left Carotid Artery Stenosis 4. Moderate Distal Right Internal Carotid Artery Stenosis 5. Mild Dementia 6. Hypertension 7. Dyslipidemia 8. Possible Community Acquired Pneumonia 9. Paroxysmal Atrial Fibrillation 10 Breast Cancer s/p Left Mastectomy (2019) 11. Type II Diabetes Mellitus 12. Osteoporosis PLAN 1. MRI of the brain revealed an acute infarct. Patient is recovering very slowly. Patient with expressive aphasia; patient does not follow all commands. 2. Antiplatelet and statin therapy 3. Strict blood pressure and blood sugar control 4. Physical therapy and speech therapy consultation appreciated. Evaluate for inpatient rehab 5. DVT prophylaxis 6. Neurochecks as needed 7. Continue with cardiac meds 8. GI and DVT prophylaxis
[2023-04-28] MEDS: ATORVASTATIN 40 MG TAB PO SCH (20:46)
[2023-04-29] MEDS: D5LR 1,000 ML IV SCH ×3 (00:28→17:57)
[2023-04-29] MEDS: INSULIN -REGULAR HUMAN 50 UNIT/0.5 ML ML SQ SCH ×4 (07:30→21:00)
[2023-04-29] MEDS ORDERED: METOPROLOL TARTRATE 5 MG/5 ML INJ IV STA (08:41)
[2023-04-29] MEDS ORDERED: METOPROLOL TARTRATE 5 MG/5 ML INJ IV ONE (08:46)
[2023-04-29] MEDS: ASPIRIN 81 MG CHEWABLE TABLET PO SCH (08:50)
[2023-04-29] MEDS: FOLIC ACID 1 MG TABLET PO SCH (08:50)
[2023-04-29] MEDS: ENOXAPARIN 60 MG/0.6 ML SQ SCH ×2 (08:51→22:02)
[2023-04-29] MEDS: AZITHROMYCIN IV 500 MG in NA CHLORIDE 0.9% 250 ML IVPB SCH (08:52)
[2023-04-29] MEDS: CEFTRIAXONE 1,000 MG in NA CHLORIDE 0.9% 50 ML IVPB SCH (08:53)
[2023-04-29] MEDS: METRONIDAZOLE 500mg IVPB 500 MG/100 ML BAG IV SCH ×2 (13:51→22:03)
[2023-04-29] MEDS: ATORVASTATIN 40 MG TAB PO SCH (21:00)
[2023-04-30] MEDS: METRONIDAZOLE 500mg IVPB 500 MG/100 ML BAG IV SCH ×3 (04:22→20:53)
[2023-04-30] MEDS: D5LR 1,000 ML IV SCH ×3 (05:00→18:20)
--- NOTE | 2023-04-30 07:00 | ECHO ---
HEIGHT: 5 ft 2 in WEIGHT: 107 lb 0 oz DATE OF STUDY: 04/29/[address]: Claude Bocanegra MD 2-DIMENSIONAL: YES M.MODE: YES DOPPLER: YES COLOR FLOW: YES TDS: PORTABLE: YES DEFINITY: BUBBLE STUDY: DIAGNOSIS: STROKE EVALUATION CARDIAC HISTORY: CATHERIZATION: NO SURGERY: NO PROSTHETIC VALVE: NO PACEMAKER: NO MEASUREMENTS (cm) DIASTOLIC (NORMALS) SYSTOLIC (NORMALS) IVSd (0.6-1.2) LA Diam (1.9-4.0) LVEF % LVIDd (3.5-5.7) LVIDs (2.0-3.5) %FS % LVPWd (0.6-1.2) Ao Diam (2.0-3.7) 2 DIMENSIONAL ASSESSMENT: RIGHT ATRIUM: LEFT ATRIUM: ENLARGED RIGHT VENTRICLE: LEFT VENTRICLE: TRICUSPID VALVE: MILD TRICUSPID REGURGITATION MITRAL VALVE: PULMONIC VALVE: AORTIC VALVE: PERICARDIAL EFFUSION: AORTIC ROOT: LEFT VENTRICULAR WALL MOTION: DOPPLER/COLOR FLOW: COMMENTS: 1. VERY POOR WINDOWS 2. UNABLE TO ACCURATELY EVALUATE THE HEART ON THIS EXAM 3. LEFT VENTRICULAR EJECTION FRACTION APPEARS OVERALL NORMAL TECHNOLOGIST: KAYLI MARTINEZ
[2023-04-30] MEDS: INSULIN -REGULAR HUMAN 50 UNIT/0.5 ML ML SQ SCH ×4 (07:30→23:32)
[2023-04-30] MEDS: ASPIRIN 81 MG CHEWABLE TABLET PO SCH (08:42)
[2023-04-30] MEDS: FOLIC ACID 1 MG TABLET PO SCH (08:43)
[2023-04-30] MEDS: CEFTRIAXONE 1,000 MG in NA CHLORIDE 0.9% 50 ML IVPB SCH (09:40)
[2023-04-30] MEDS: ENOXAPARIN 60 MG/0.6 ML SQ SCH ×2 (09:40→20:53)
--- NOTE | 2023-04-30 14:56 | EKG ---
Test Date: 2023-04-29 Test Time: 08:13:57 Conduit Bender: PAIGE MEASUREMENT RESULTS: Intervals: Rate: 149 NH: QRSD: 88 QT: 320 QTc: 504 Volin: P: NH: QRS: 79 T: 264 INTERPRETIVE STATEMENTS: Atrial fibrillation with rapid ventricular response Voltage criteria for left ventricular hypertrophy Marked ST abnormality, possible inferior subendocardial injury Marked ST abnormality, possible anterolateral subendocardial injury Abnormal ECG Compared to ECG 04/27/2023 11:55:21 Left ventricular hypertrophy now present Myocardial infarct finding no longer present Possible ischemia no longer present ST (T wave) deviation still present Electronically Signed On 04-30-23 14:54:54 CDT by Caio Sandoval
--- NOTE | 2023-04-30 15:02 | EKG ---
Test Date: 2023-04-27 Test Time: 11:55:21 Latin Professor: ALP MEASUREMENT RESULTS: Intervals: Rate: 92 MO: QRSD: 68 QT: 320 QTc: 395 [place]: P: MO: QRS: 78 T: 242 INTERPRETIVE STATEMENTS: Atrial fibrillation Septal infarct, age undetermined ST & T wave abnormality, consider inferolateral ischemia Abnormal ECG Compared to ECG 07/04/2004 12:38:00 Myocardial infarct finding now present ST (T wave) deviation now present Possible ischemia now present Sinus bradycardia no longer present Sinus arrhythmia no longer present Atrial premature complex(es) no longer present Electronically Signed On 04-30-23 14:57:50 CDT by Caio Sandoval
--- NOTE | 2023-04-30 16:01 | CON ---
Date of Consultation: 04/29/2023 Reason For Consultation: Atrial fibrillation. History Of Present Illness: An 82-year-old female with a past medical history of breast cancer, diab etes, dyslipidemia, hypertension, brain aneurysm, status post clipping, presented to the emergency ro om with facial droop and left-sided weakness. Diagnosed with stroke, was found to be in atrial fibri llation, initially was without ventricular response, then rate was controlled and I saw her by dina najera. No new complaints. Past Medical History: As outlined above in the HPI. Medications: Refer to reconciliation sheet for detailed list. Allergies: NO KNOWN DRUG ALLERGIES. Family History: No premature coronary artery disease or cancer. Social History: She does not smoke or drink. Does not use any drugs. Review of Systems: All systems reviewed and they were negative except what mentioned in HPI. Physical Examination: Vital Signs: Reviewed. Head and Neck: Pupils are equal, reactive to light. Intact eye movements. No JVD. No cervical lym phadenopathy. Neck is supple. Thyroid is not enlarged. Lungs: Clear to auscultation bilaterally. No rhonchi, wheezing, or crackles. No accessory muscle u se. Heart: Irregularly irregular. No extra sounds. Abdomen: Soft, nontender. Bowel sounds positive. No organomegaly. No masses or hernia. No rigidi ty or rebound. Extremities: No edema, clubbing, or cyanosis. Intact pulses. Skin: No rash. Neurologic: Alert, awake with left-sided weakness and facial droop. Lymph Nodes: No cervical or axillary lymphadenopathy. Investigations: Her BUN is 12, creatinine 0.69. Assessment And Recommendations: 1.Atrial fibrillation. Rate is controlled at the present time. Recommend low-dose beta natalia wit h metoprolol 12.5 mg twice a day. Also need to start the patient on Eliquis 5 mg twice a day. Can r eplace the Lovenox with Eliquis as the patient had a recent stroke. 2.Acute cerebrovascular accident, likely due to atrial fibrillation. Recommend to start Eliquis 5 m g twice a day and this patient is a good candidate for appendage closure as an outpatient. Recommend to discontinue Lovenox and start her on Eliquis. 3.Hypertension. Blood pressure is controlled. Continue current management. /QUINTEN Voice ID: [id number] Report ID: [id number]
--- NOTE | 2023-04-30 16:30 | PN ---
Date of Progress Note: 04/30/2023 Subjective: Seen by bedside. No new changes. Review of Systems: No chest pain, shortness of breath, orthopnea, cough. No nausea, vomiting, diarrhea. All other syst ems reviewed are negative. Physical Examination: Vital Signs: Reviewed. Head and Neck: Pupils are equal, reactive to light. Intact eye movements. No JVD. No cervical lym phadenopathy. Neck is supple. Thyroid is not enlarged, Lungs: Clear to auscultation bilaterally. No rhonchi, wheezing, or crackles. No accessory muscle u se. Heart: Irregularly irregular. No extra sounds. Abdomen: Soft, nontender. Bowel sounds positive. No organomegaly. No masses or hernia. No rigidi ty or rebound. Extremities: No edema, clubbing, or cyanosis. Intact pulses. Skin: No rash. Neuro: Alert, awake, oriented x3. No acute focal deficits appreciated. Lymph Nodes: No cervical or axillary lymphadenopathy. Investigations: CTA of the neck showed severe carotid stenosis on the left side. Assessment/recommendations: 1.Atrial fibrillation. Rate is controlled. If blood pressure allows, add metoprolol 25 mg twice a day and can discontinue Lovenox. Start on Eliquis 5 mg twice a day. 2.Acute cerebrovascular accident. Again, patient needs anticoagulation and she will be a good ella date for appendage closure as an outpatient. 3.Carotid artery stenosis. It does not correlate with the acute cerebrovascular accident that she h as had today. Likely, this is not a cause for her stroke. She will need a carotid angiogram, which can be arranged for as an outpatient. 4.Hypertension. Blood pressure is controlled. SR/MODL Voice ID: [id number] Report ID: [id number]
[2023-04-30] MEDS: ATORVASTATIN 40 MG TAB PO SCH (20:53)
--- NOTE | 2023-04-30 22:42 | CON ---
Reason For Consultation: Consultation called because of stroke. History Of Present Illness: Ms. Schmidt is an 82-year-old patient with history of brain aneurysm clip ping in 1994, breast cancer, diabetes mellitus, dyslipidemia, hypertension, and dementia who came to [facility] with worsening left-sided facial droop, left lower extremity weakness, and worsen ing expressive aphasia. She does have significant dementia and has been in a skilled nursing. Her son has power of defense attorney. The patient is being fed at the time I saw her and she was able to pay attention to the right side, but not to the left as she was in bed eating pudding consistency and does have ne ctar thick liquid consistency for hydration. As noted from chart review, the event occurred somewher e around 10:00 a.m. on 04/27/2023 where she had a rightward gaze with left facial droop, left-sided w eakness, and was brought to [facility] where a code stroke was called. EKG showed atrial fi brillation and chest x-ray showed possible pneumonia in the left midlung along with blood work showin g hypokalemia. CT scan identified an area of vague low-density in the right frontal lobe, equivocal for an acute infarction and CT angiogram revealed several peripheral branches of the right middle cer ebral artery were diminished in caliber without large vessel disease. There was moderate right inter nal carotid artery stenosis and severe plaque in the left carotid bulb with 75% stenosis. Since admi ssion, the patient has regained some ability to use the left arm and leg, but still has significant n eglect with rightward gaze and neglect of the left visual field. She did have attempts at physical t herapy, occupational therapy and speech therapy and requires maximum assistance for ADLs, transfers, and was able to walk 6 steps with maximum assistance and a rolling walker and gait belt support. Past Medical History: As noted. Osteoporosis and left breast cancer. Allergies: NO KNOWN DRUG ALLERGIES. Medications: Alendronate 70 mg daily, aspirin 81 mg daily, Lipitor 40 mg at bedtime, Os-Barry that is calcium plus D 600 mg daily, metformin 500 mg twice daily, hydrochlorothiazide 25 mg daily, nifedipin e 30 mg daily, Femara 2.5 mg daily. past. Past Surgical History: Mastectomy in 2019 and aneurysm clipping 1994. Family History: Noncontributory. Social History: Patient resides at a local skilled nursing. No alcohol, tobacco, or IV drug use. Review of Systems: No meaningful review of systems is obtainable at this point. Physical Examination: Vital Signs: Blood pressure 138/62, pulse 79, respiratory rate 16, temperature 97.9, oxygen saturati on 100% on room air. General: Ms. Schmidt is resting in bed. She is being fed lunch and I instructed the insurance account assistant to thuan vate her bed at least 45 degrees when she eats. She is able to swallow. No overt coughing noted. S he was cleared for nectar thick liquids and pudding consistency. Neuro: In terms of cranial nerves, she does have a left nasolabial fold droop, apparent decreased pe rception of the left visual field, some rightward head turning, and more attention was paid to the ri ght visual field. She is apparently regaining some strength in the left upper extremity and lower ex tremity, was able to bend the knee up and lift the arm off the bed. On right side, she had good stre ngth at least 4/5 proximally and distally. Her sensory exam unable to fully appreciate. Coordinatio n difficult to assess. Reflexes: She does have increased tone and not fully appreciate if she had e levated reflexes. Laboratory Studies: Complete blood count with differential is essentially unremarkable. INR 1.07. Blood sugars ranged from 156 to 209. Electrolyte panel is remarkable for slightly low potassium of 3 .8, but was otherwise normal. Total cholesterol 142, LDL 75, HDL 41. TSH 0.639. Procalcitonin less than 0.5. Echocardiogram shows unable to accurately evaluate the heart exam. Left ejection fractio n appears normal. Electrocardiogram shows atrial fibrillation with rapid ventricular response. Volt age criteria for left ventricular hypertrophy, marked ST abnormality, possible inferior subendocardia l injury, and patient was seen by Dr. Sandoval of Cardiology, recommending a low-dose beta-natalia and Eliquis 5 mg twice daily along with blood pressure management. Assessment: An 82-year-old patient with possible cardioembolic stroke. She is beginning to show evgeny e sign of recovery. She otherwise has history of significant dementia, hypertension, and slightly el evated LDL cholesterol. She is treated for potential pneumonia as her chest x-ray on admission ident ified mild mid left lung opacities, may represent pneumonia. Plan: 1.Agree with Eliquis 5 mg twice daily. 2.Continue antibiotics as indicated for pneumonia. 3.She may qualify for aggressive inpatient rehabilitation if she is able to follow commands and able to withstand 3.5 hours of physical, occupational, and speech therapy daily. May allow for permissiv e hypertension for next 5 days. Blood sugars appear to be well controlled and should continue curren t regimen. She should be fed upright at least a minimal 45 degrees, but should be vertical if possib le to minimize the chance of further aspiration pneumonia. MONE/QUINTEN Voice ID: [id number] Report ID: [id number]
[2023-05-01] MEDS: D5LR 1,000 ML IV SCH ×3 (02:25→21:35)
[2023-05-01] MEDS: METRONIDAZOLE 500mg IVPB 500 MG/100 ML BAG IV SCH ×3 (04:43→21:36)
[2023-05-01] MEDS: INSULIN -REGULAR HUMAN 50 UNIT/0.5 ML ML SQ SCH ×4 (07:30→21:00)
[2023-05-01] MEDS: ENOXAPARIN 60 MG/0.6 ML SQ SCH ×2 (08:31→21:35)
[2023-05-01] MEDS: ASPIRIN 81 MG CHEWABLE TABLET PO SCH (08:31)
[2023-05-01] MEDS: FOLIC ACID 1 MG TABLET PO SCH (08:31)
[2023-05-01] MEDS: CEFTRIAXONE 1,000 MG in NA CHLORIDE 0.9% 50 ML IVPB SCH (08:31)
[2023-05-01] MEDS: ATORVASTATIN 40 MG TAB PO SCH (21:35)
[2023-05-02] MEDS: METRONIDAZOLE 500mg IVPB 500 MG/100 ML BAG IV SCH (04:57)
[2023-05-02] MEDS: INSULIN -REGULAR HUMAN 50 UNIT/0.5 ML ML SQ SCH ×4 (07:30→21:00)
[2023-05-02] MEDS: ASPIRIN 81 MG CHEWABLE TABLET PO SCH (08:00)
[2023-05-02] MEDS: ENOXAPARIN 60 MG/0.6 ML SQ SCH ×2 (08:00→20:33)
[2023-05-02] MEDS: CEFTRIAXONE 1,000 MG in NA CHLORIDE 0.9% 50 ML IVPB SCH (08:00)
[2023-05-02] MEDS: FOLIC ACID 1 MG TABLET PO SCH (08:00)
[2023-05-02] MEDS: D5LR 1,000 ML IV SCH (11:26)
[2023-05-02] MEDS: ATORVASTATIN 40 MG TAB PO SCH (20:33)
--- NOTE | 2023-05-02 23:48 | PN ---
Date of Progress Note: 05/02/2023 Subjective: Seen by bedside. No new complaints. Still in sinus rhythm. Review of Systems: No chest pain, shortness of breath, orthopnea, or cough. No nausea, vomiting, diarrhea. All other s ystems reviewed were negative. Physical Examination: Vital Signs: Reviewed. Head and Neck: Pupils are equal, reactive to light. Intact eye movements. No JVD. No cervical lym phadenopathy. Neck: Supple. Thyroid is not enlarged. Lungs: Clear to auscultation bilaterally. No rhonchi, rales, or crackles. No accessory muscle use. Heart: Regular rate and rhythm. No extra sounds. Abdomen: Soft, nontender. Bowel sounds positive. No organomegaly. No masses or hernia. No rigidi ty or rebound. Extremities: No clubbing, cyanosis. Intact pulses. Skin: No rash. Neurologic: Alert, awake. No acute focal deficits appreciated. Investigations: Labs were reviewed. Assessment And Recommendation: 1.Atrial fibrillation, in sinus rhythm. Again, discontinue Lovenox and start Eliquis as she needs a stroke prevention on the long run, especially that she presented with a stroke. 2.Acute cerebrovascular accident, likely due to atrial fibrillation. Recommend starting Eliquis once Lovenox is discontinued. 3.Dyslipidemia. Continue statin. Cardiology will sign off. SR/MODL Voice ID: [id number] Report ID: [id number]
[2023-05-03] MEDS: D5LR 1,000 ML IV SCH ×2 (04:37→15:50)
[2023-05-03] MEDS: INSULIN -REGULAR HUMAN 50 UNIT/0.5 ML ML SQ SCH ×4 (07:30→21:09)
[2023-05-03] MEDS: FOLIC ACID 1 MG TABLET PO SCH (08:30)
[2023-05-03] MEDS: ASPIRIN 81 MG CHEWABLE TABLET PO SCH (08:31)
[2023-05-03] MEDS: ENOXAPARIN 60 MG/0.6 ML SQ SCH ×2 (08:34→21:08)
[2023-05-03] MEDS ORDERED: METOPROLOL TAR 25 MG TAB PO ONE (09:30)
[2023-05-03 11:35] LABS: Absolute Lymphocytes (CBC) 1.6 K/uL (0.7-4.9); Hematocrit 30.6 % (36.0-45.0); Lymphocytes % 18.2 % (15.3-44.8); MCV 90.5 fL (80-100); MPV 7.1 fL (7.6-11.3); Platelets 227 thou/uL (152-406); RBC Red Blood Cell Count 3.39 M/uL (3.86-4.86)
[2023-05-03 11:53] LABS: Albumin 2.6 g/dL (3.4-5.0); Bilirubin Total 0.3 mg/dL (0.2-1.0); Potassium 2.9 mEq/L (3.5-5.1); Protein, Total 5.6 g/dL (6.4-8.2)
--- NOTE | 2023-05-03 13:53 | CON ---
Date of Consultation: 04/30/2023 Brief History Of Present Illness: Patient is an 82-year-old female with past medical history of brai n aneurysm, status post clipping in 1994; breast cancer, status post left mastectomy; diabetes; hyper lipidemia; hypertension; osteoporosis; and dementia, who was present in the hospital with left-sided facial droop and left-sided upper left extremity weakness consistent with a possible CVA. Patient gutierres d significant swallowing difficulty and as such I was consulted for discussion of a possible PEG tube placement, feeding tube access with the patient's family who was at the bedside during my examinatio n. Patient is essentially nonverbal and as such, all information is obtained from the chart and from the patient's family who is at bedside. Past Medical History: Hypertension, diabetes, dementia, dyslipidemia, osteoporosis, left breast canc er, left mastectomy, brain aneurysm, CVA on admission. Allergies: NO KNOWN DRUG ALLERGIES. Home Medications: Include Binosto, aspirin, Lipitor, Femara, nifedipine, metformin, hydrochlorothiaz inez, calcium carbonate/vitamin D3. Social History: She is a former smoker. Review of Systems: 10-point review of systems is unable to obtain. Physical Examination: General: At the time of my examination, she is awake and alert, but nonverbal. HEENT: She is normocephalic. Sclerae anicteric. Mucous membranes moist. Oropharynx clear. Neck: Supple without JVD. Chest: Expansion and excursion. Cardiovascular: Regular rate and rhythm. Pulmonary: Clear to auscultation bilaterally. Abdomen: Soft, nondistended, nontender. Laboratory Data: Revealed a white blood count of 7.9, hemoglobin 12.1, hematocrit 36.8, platelet cou nt was 288. Coags showed PT 11.8, INR 1.07, PTT is 22.7. Chemistry showed a sodium of 137, potassiu m 3.4, chloride 105, carbon dioxide 26, BUN 12, creatinine 0.6. Her glucose is 99. She had a CTA of the head on 04/27 officially read as moderate stenosis of the right internal carotid artery, several peripheral branches of the right middle cerebral artery diminished in caliber. Brain CT also perfor med on 04/27 officially read as vague low-density area, frontal lobe is equivocal from an acute infar ction. Assessment And Plan: This is an 82-year-old female who presents with possible ongoing stroke and dys phagia and worsening swallowing difficulty. 1.Continue IV fluid hydration. 2.I have explained risks, benefits, and alternatives of placement of percutaneous endoscopic gastros yash tube, including but not limited to bleeding, infection, damage to the tissue, injury to intestin es, colon, small bowel, blood clot, strokes, heart attack, further worsening of her chronic condition . Patient's family wants to consider the options. 3.I will await the recommendation of the speech pathologist who is due to evaluate the patient's swa llorenang capabilities and if she is able to swallow, I will recommend attempt at p.o. nutrition prior to any endoscopic or feeding tube access. 4.If patient is unable to tolerate p.o. nutrition or is unable to meet nutritional goals via the ora l route, then I will continue the discussion with the family regarding various feeding tube options a s described above. We will wait until recommendations as described above. Patient's family agrees t o proceed as indicated. Thank you for this consultation. QUYNH/QUINTEN Voice ID: [id number] Report ID: [id number]
[2023-05-03] MEDS: METOPROLOL TAR 25 MG TAB PO SCH (18:00)
[2023-05-03] MEDS: LOSARTAN POTASSIUM 50 MG TABLET PO SCH (21:08)
[2023-05-03] MEDS: ENSURE ENLIVE 237 ML CAN PO SCH (21:09)
[2023-05-03] MEDS: ATORVASTATIN 40 MG TAB PO SCH (21:09)
[2023-05-04] MEDS: METOPROLOL TAR 25 MG TAB PO SCH ×2 (05:11→18:00)
[2023-05-04] MEDS: INSULIN -REGULAR HUMAN 50 UNIT/0.5 ML ML SQ SCH ×4 (07:30→21:00)
[2023-05-04] MEDS: FOLIC ACID 1 MG TABLET PO SCH (08:52)
[2023-05-04] MEDS: ASPIRIN 81 MG CHEWABLE TABLET PO SCH (08:52)
[2023-05-04] MEDS: LOSARTAN POTASSIUM 50 MG TABLET PO SCH ×2 (08:52→22:29)
[2023-05-04] MEDS: ENSURE ENLIVE 237 ML CAN PO SCH ×2 (08:53→22:29)
[2023-05-04] MEDS: ENOXAPARIN 60 MG/0.6 ML SQ SCH ×2 (08:53→22:29)
[2023-05-04] MEDS ORDERED: POTASSIUM CL 40 MEQ in NA CHLORIDE 0.9% 500 ML IV SCH (15:35)
[2023-05-04] MEDS ORDERED: NA CHLORIDE 0.9% 250 ML ONE (15:47)
[2023-05-04] MEDS: KCL 20 MEQ/100 mL IVPB 100 ML IV SCH ×2 (15:47→17:59)
[2023-05-04] MEDS ORDERED: METOPROLOL TAR 50 MG TAB PO ONE (16:00)
[2023-05-04] MEDS ORDERED: METOPROLOL TAR 25 MG TAB ONE (16:09)
[2023-05-04] MEDS: ATORVASTATIN 40 MG TAB PO SCH (22:29)
[2023-05-05] MEDS: METOPROLOL TAR 25 MG TAB PO SCH ×2 (05:22→17:58)
[2023-05-05 06:39] LABS: Potassium 3.3 mEq/L (3.5-5.1)
[2023-05-05] MEDS: INSULIN -REGULAR HUMAN 50 UNIT/0.5 ML ML SQ SCH ×4 (07:30→21:40)
[2023-05-05] MEDS: FOLIC ACID 1 MG TABLET PO SCH (08:55)
[2023-05-05] MEDS: LOSARTAN POTASSIUM 50 MG TABLET PO SCH ×2 (08:55→21:40)
[2023-05-05] MEDS: ENOXAPARIN 60 MG/0.6 ML SQ SCH ×2 (08:55→21:40)
[2023-05-05] MEDS: ENSURE ENLIVE 237 ML CAN PO SCH ×2 (08:55→21:40)
[2023-05-05] MEDS: ASPIRIN 81 MG CHEWABLE TABLET PO SCH (08:55)
[2023-05-05] MEDS: ATORVASTATIN 40 MG TAB PO SCH (21:40)
[2023-05-06] MEDS: METOPROLOL TAR 25 MG TAB PO SCH ×2 (06:03→17:16)
[2023-05-06] MEDS: INSULIN -REGULAR HUMAN 50 UNIT/0.5 ML ML SQ SCH ×4 (07:30→21:42)
[2023-05-06] MEDS: ASPIRIN 81 MG CHEWABLE TABLET PO SCH (10:10)
[2023-05-06] MEDS: FOLIC ACID 1 MG TABLET PO SCH (10:11)
[2023-05-06] MEDS: LOSARTAN POTASSIUM 50 MG TABLET PO SCH ×2 (10:11→21:44)
[2023-05-06] MEDS: ENSURE ENLIVE 237 ML CAN PO SCH ×3 (10:11→21:45)
[2023-05-06] MEDS: ENOXAPARIN 60 MG/0.6 ML SQ SCH ×2 (10:11→21:42)
--- NOTE | 2023-05-06 11:10 | P.PN ---
Date of Service: 05/05/23 Subjective: Clinically stable. Dietary intake has been appropriate. Probably will not qualify for PEG tube placement. Continuing to encourage nutritional intake. The patient strength buildup. I do not think patient will get approved for intermediate facility. ROS: 10 point ROS as noted above, otherwise negative Physical Exam: Vitals: Reviewed Gen: Alert, NAD, expressive aphasia HEENT: Within normal limits CV: Irregular heart rate/rhythm, no edema Pulm: Clear bilaterally Abd: soft, non-tender, non-distended Neuro: Generalized weakness; moves all her extremities Problem List: 1. Acute Right Frontal Lobe Cerebrovascular Accident 2. Brain Aneurysm s/p Clipping (1994) 3. Severe Left Carotid Artery Stenosis 4. Moderate Distal Right Internal Carotid Artery Stenosis 5. Mild Dementia 6. Hypertension 7. Dyslipidemia 8. Possible Community Acquired Pneumonia 9. Paroxysmal Atrial Fibrillation 10 Breast Cancer s/p Left Mastectomy (2019) 11. Type II Diabetes Mellitus 12. Osteoporosis PLAN 1. MRI of the brain revealed an acute infarct. Patient is recovering very slowly. Patient with expressive aphasia but does she follow commands. Nutritional intake is appropriate after calorie count. We will try to get her to intermediate facility but most likely will not qualify. 2. Antiplatelet and statin therapy 3. Strict blood pressure and blood sugar control 4. Physical therapy and speech therapy consultation appreciated 5. DVT prophylaxis 6. Neurochecks as needed 7. Continue with cardiac meds 8. GI and DVT prophylaxis
--- NOTE | 2023-05-06 11:11 | P.PN ---
Date of Service: 04/30/23 Subjective: Patient not really following commands. Patient is staring ahead and my concern is that her caloric intake is not appropriate. She has not really been participating well with physical therapy so I do not think she is a candidate for inpatient rehab. We will try to get her to [facility] facility. ROS: 10 point ROS as noted above, otherwise negative Physical Exam: Vitals: Reviewed Gen: Alert, NAD, expressive aphasia HEENT: Within normal limits CV: Irregular heart rate/rhythm, no edema Pulm: Clear bilaterally Abd: soft, non-tender, non-distended Neuro: Generalized weakness; moves all her extremities: Patient follows some commands at this point but other times she just kind of stares ahead. Problem List: 1. Acute Right Frontal Lobe Cerebrovascular Accident 2. Brain Aneurysm s/p Clipping (1994) 3. Severe Left Carotid Artery Stenosis 4. Moderate Distal Right Internal Carotid Artery Stenosis 5. Mild Dementia 6. Hypertension 7. Dyslipidemia 8. Possible Community Acquired Pneumonia 9. Paroxysmal Atrial Fibrillation 10 Breast Cancer s/p Left Mastectomy (2019) 11. Type II Diabetes Mellitus 12. Osteoporosis PLAN 1. MRI of the brain revealed an acute infarct. Patient is recovering very slowly. Patient with expressive aphasia; patient does not follow all commands. Continue working with therapy and see if she will qualify for inpatient rehab versus [facility] facility. 2. Antiplatelet and statin therapy 3. Strict blood pressure and blood sugar control 4. Physical therapy and speech therapy consultation appreciated 5. DVT prophylaxis 6. Neurochecks as needed 7. Continue with cardiac meds 8. GI and DVT prophylaxis
--- NOTE | 2023-05-06 11:13 | P.PN ---
Date of Service: 05/01/23 Subjective: Patient is doing well with no new complaints. Following commands today. Patient is eating very little and I will try to get a calorie count started. She is going to work with physical therapy but I will think she is working on up to where she is a candidate for inpatient rehab. May need to go to senior care facility. Physical Exam: Vitals: Reviewed Gen: Alert, NAD, expressive aphasia HEENT: Within normal limits CV: Irregular heart rate/rhythm, no edema Pulm: Clear bilaterally Abd: soft, non-tender, non-distended Neuro: Generalized weakness; moves all her extremities: Patient follows some commands at this point but other times she just kind of stares ahead. Problem List: 1. Acute Right Frontal Lobe Cerebrovascular Accident 2. Brain Aneurysm s/p Clipping (1994) 3. Severe Left Carotid Artery Stenosis 4. Moderate Distal Right Internal Carotid Artery Stenosis 5. Mild Dementia 6. Hypertension 7. Dyslipidemia 8. Possible Community Acquired Pneumonia 9. Paroxysmal Atrial Fibrillation 10 Breast Cancer s/p Left Mastectomy (2019) 11. Type II Diabetes Mellitus 12. Osteoporosis PLAN 1. MRI of the brain revealed an acute infarct. Patient is recovering very slowly. Patient with expressive aphasia; patient does not follow all commands. Continue working with therapy and see if she will qualify for inpatient rehab versus senior care facility. 2. Antiplatelet and statin therapy 3. Strict blood pressure and blood sugar control 4. Physical therapy and speech therapy consultation appreciated; patient is following some commands. We will also do a calorie count to see her nutritional intake. 5. DVT prophylaxis 6. Neurochecks as needed 7. Continue with cardiac meds 8. GI and DVT prophylaxis
--- NOTE | 2023-05-06 11:14 | P.PN ---
Date of Service: 05/02/23 Subjective: Patient is denying any new complaints. Continue with increasing dietary intake. Monitoring calorie count. Continue with physical therapy. Physical Exam: Vitals: Reviewed Gen: Alert, NAD, expressive aphasia HEENT: Within normal limits CV: Irregular heart rate/rhythm, no edema Pulm: Clear bilaterally Abd: soft, non-tender, non-distended Neuro: Generalized weakness; moves all her extremities: Patient follows some commands at this point but other times she just kind of stares ahead. Problem List: 1. Acute Right Frontal Lobe Cerebrovascular Accident 2. Brain Aneurysm s/p Clipping (1994) 3. Severe Left Carotid Artery Stenosis 4. Moderate Distal Right Internal Carotid Artery Stenosis 5. Mild Dementia 6. Hypertension 7. Dyslipidemia 8. Possible Community Acquired Pneumonia 9. Paroxysmal Atrial Fibrillation 10 Breast Cancer s/p Left Mastectomy (2019) 11. Type II Diabetes Mellitus 12. Osteoporosis PLAN 1. MRI of the brain revealed an acute infarct. Patient is recovering very slowly. Patient with expressive aphasia; patient does not follow all commands. Continue working with therapy and see if she will qualify for inpatient rehab versus care home facility. 2. Antiplatelet and statin therapy 3. Strict blood pressure and blood sugar control 4. Physical therapy and speech therapy consultation appreciated; patient is following some commands. We will also do a calorie count to see her nutritional intake. 5. DVT prophylaxis 6. Neurochecks as needed 7. Continue with cardiac meds 8. GI and DVT prophylaxis
--- NOTE | 2023-05-06 11:15 | P.PN ---
Date of Service: 05/03/23 Subjective: Patient is doing well with no new complaints. Patient is continuing to eat. Patient is participating with physical therapy. Calorie count has been started. Physical Exam: Vitals: Reviewed Gen: Alert, NAD, expressive aphasia HEENT: Within normal limits CV: Irregular heart rate/rhythm, no edema Pulm: Clear bilaterally Abd: soft, non-tender, non-distended Neuro: Generalized weakness; moves all her extremities: Patient follows some commands at this point but other times she just kind of stares ahead. Problem List: 1. Acute Right Frontal Lobe Cerebrovascular Accident 2. Brain Aneurysm s/p Clipping (1994) 3. Severe Left Carotid Artery Stenosis 4. Moderate Distal Right Internal Carotid Artery Stenosis 5. Mild Dementia 6. Hypertension 7. Dyslipidemia 8. Possible Community Acquired Pneumonia 9. Paroxysmal Atrial Fibrillation 10 Breast Cancer s/p Left Mastectomy (2019) 11. Type II Diabetes Mellitus 12. Osteoporosis PLAN 1. MRI of the brain revealed an acute infarct. Patient is recovering very slowly. Patient with expressive aphasia; patient does not follow all commands. Continue working with therapy and see if she will qualify for inpatient rehab versus senior care facility. 2. Antiplatelet and statin therapy 3. Strict blood pressure and blood sugar control 4. Physical therapy and speech therapy consultation appreciated; patient is following some commands. We will also do a calorie count to see her nutritional intake. 5. DVT prophylaxis 6. Neurochecks as needed 7. Continue with cardiac meds 8. GI and DVT prophylaxis
--- NOTE | 2023-05-06 11:16 | P.PN ---
Date of Service: 05/04/23 Subjective: Spoke with nursing. Patient's caloric intake has been appropriate. Plan to add a shake to patient's regimen. Patient was not approved for [facility] facility. We will try to work on discharge planning with home health. Physical Exam: Vitals: Reviewed Gen: Alert, NAD, expressive aphasia HEENT: Within normal limits CV: Irregular heart rate/rhythm, no edema Pulm: Clear bilaterally Abd: soft, non-tender, non-distended Neuro: Generalized weakness; moves all her extremities: Patient follows some commands at this point but other times she just kind of stares ahead. Problem List: 1. Acute Right Frontal Lobe Cerebrovascular Accident 2. Brain Aneurysm s/p Clipping (1994) 3. Severe Left Carotid Artery Stenosis 4. Moderate Distal Right Internal Carotid Artery Stenosis 5. Mild Dementia 6. Hypertension 7. Dyslipidemia 8. Possible Community Acquired Pneumonia 9. Paroxysmal Atrial Fibrillation 10 Breast Cancer s/p Left Mastectomy (2019) 11. Type II Diabetes Mellitus 12. Osteoporosis PLAN 1. MRI of the brain revealed an acute infarct. Patient is recovering very slowly. Patient with expressive aphasia; patient does not follow all commands. Continue working with therapy and see if she will qualify for inpatient rehab versus [facility] facility. 2. Antiplatelet and statin therapy 3. Strict blood pressure and blood sugar control 4. Physical therapy and speech therapy consultation appreciated; patient is following some commands. We will also do a calorie count to see her nutritional intake. 5. DVT prophylaxis 6. Neurochecks as needed 7. Continue with cardiac meds 8. GI and DVT prophylaxis
[2023-05-06] MEDS: ATORVASTATIN 40 MG TAB PO SCH (21:44)
--- NOTE | 2023-05-07 03:16 | P.PN ---
Date of Service: 05/06/23 Subjective: Patient doing okay. Patient working with therapy and tolerating diet. Awaiting for [facility] facility placement as expedited appeal has been started. Physical Exam: Vitals: reviewed Gen: Alert, NAD, expressive aphasia HEENT: normal conjunctiva, sclera anicteric CV: Irregular heart rate/rhythm, no edema Pulm: non-labored respirations on room air, diminished at bases b/l, Rhonchi/gurgles Abd: soft, non-tender, non-distended MSK: no joint tenderness Neuro: Abnormal strength (4-/5 strength in LUE/3/5-LLE, 5/5 strength in RUE/RLE) left lower facial droop, expressive aphasia NIHSS: 12 Problem List: 1. Acute Right Frontal Lobe Cerebrovascular Accident 2. Brain Aneurysm s/p Clipping (1994) 3. Severe Left Carotid Artery Stenosis 4. Moderate Distal Right Internal Carotid Artery Stenosis 5. Mild Dementia 6. Hypertension 7. Dyslipidemia 8. Possible Community Acquired Pneumonia 9. Paroxysmal Atrial Fibrillation 10 Breast Cancer s/p Left Mastectomy (2019) 11. Type II Diabetes Mellitus 12. Osteoporosis PLAN 1. MRI of the brain revealed an acute infarct. Patient is recovering very slowly. Patient with expressive aphasia; patient does not follow all commands. Patient strength is improving and will continue with physical therapy as well as speech therapy. Patient nutritional intake is improved as well. 2. Antiplatelet and statin therapy 3. Strict blood pressure and blood sugar control 4. Physical therapy and speech therapy consultation appreciated. Evaluate for SNF; expedited appeal pending 5. DVT prophylaxis 6. Neurochecks as needed 7. Continue with cardiac meds 8. GI and DVT prophylaxis
[2023-05-07] MEDS: METOPROLOL TAR 25 MG TAB PO SCH ×2 (05:53→16:59)
[2023-05-07] MEDS: INSULIN -REGULAR HUMAN 50 UNIT/0.5 ML ML SQ SCH ×4 (07:30→20:59)
[2023-05-07] MEDS: LOSARTAN POTASSIUM 50 MG TABLET PO SCH ×2 (09:45→20:58)
[2023-05-07] MEDS: ASPIRIN 81 MG CHEWABLE TABLET PO SCH (09:45)
[2023-05-07] MEDS: FOLIC ACID 1 MG TABLET PO SCH (09:45)
[2023-05-07] MEDS: ENSURE ENLIVE 237 ML CAN PO SCH ×3 (09:45→22:16)
[2023-05-07] MEDS: AMLODIPINE 5 MG TAB PO SCH (09:45)
[2023-05-07] MEDS: ENOXAPARIN 60 MG/0.6 ML SQ SCH ×2 (09:45→20:58)
--- NOTE | 2023-05-07 15:49 | P.PN ---
Subjective Date of Service: 05/07/23 Primary Care Provider: Sedrick Muñoz Chief Complaint: Acute CVA Per RN, no acute events overnight. She continues to have expressive aphasia, but seems to be improving in regards to left-sided strength. She is currently in the expedited appeal process for SNF placement. No further history available at this time. Review of Systems is unable to be obtained Physical Examination - Vital Signs Temperature: 98.4 F Blood Pressure: 187/84 Pulse: 61 Respirations: 14 Pulse Ox (%): 94 Assessment And Plan - Plan - Physical Exam General: Alert, In no apparent distress, Other (expressive aphasia) HEENT: Atraumatic, Sclerae nonicteric Respiratory: Diminished, clear to ausculation bilaterally Cardiovascular: No edema, No murmurs, Irregular heart rate/rhythm Gastrointestinal: Soft and benign, Non-distended, No tenderness Musculoskeletal: No clubbing Integumentary: No rashes Neurological: Sensation intact, Abnormal speech (expressive aphasia), Abnormal strength (3-4/5 strength in LUE, 2-3/5 strength in LLE, 5/5 strength in RUE/RLE), Abnormal cranial nerve function (left lower facial droop) NIH Stroke Scale 1a. Level of consciousness: 0 - alert; keenly responsive 1b. LOC questions: 2 - aphasic 1c. LOC commands: 0 - Performs both tasks 2. Best Gaze: 0 - Normal 3. Visual: 0 - No visual loss 4. Facial Palsy: 2 - partial paralysis (lower face) 5a. Motor left arm: 2 - some effort against gravity 5b. Motor right arm: 0 - No drift for 10 seconds 6a. Motor left le - some effort against gravity 6b. Motor right le - No drift for 5 seconds 7. Limb ataxia: 0 - No ataxia 8. Sensory: 0 - Normal; no sensory loss 9. Best Language: 2 - severe expressive aphasia 10. Dysarthria: 2 - severe dysarthria 11. Extinction and Inattention: 0 - No abnormality 12. 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 Recinos - recommendations appreciated - Recommended aspirin, folic acid, atorvastatin, and enoxaparin - NIHSS = 12 - Radiology: - CT head = "vague low-density area right frontal lobe is equivocal for an acute infarction." - CT head angiogram = "several peripheral branches right middle cerebral artery diminished in caliber. No large vessel occlusion Moderate stenosis distal right internal carotid artery." - CT neck angiogram = "severe plaque left carotid bulb results in an approximately results in an approximately 70-75% stenosis." - Unable to obtain MRI given prior brain aneurysm clipping - Hold home hydrochlorothiazide, nifedipine - Transthoracic echocardiogram = "1. very poor windows 2. unable to accurately evaluate the heart on this exam 3. left ventricular ejection fraction appears overall normal" - PT/OT/MAJOR ACCOUNT REPRESENTATIVE evaluation requested - pending SNF placement (appreciate CM assistance) - q4hr neurochecks - Ordered risk profile: - Hgb A1c = 6.3 % - Lipid panel = TC 142, LDL 75, HDL 41, TG 130 - TSH = 0.639 # Possible Community Acquired Pneumonia - Evaluation thus far: - Does not meet sepsis criteria - Procalcitonin = <0.05 - Chest x-ray = "mild mid left lung opacities may represent pneumonia. Follow-up chest film in 1 month recommended for re-evaluation." - Management plan: - Completed course of ceftriaxone + azithromycin - Consulted Respiratory Therapy - Supplemental oxygen to maintain SpO2 > 92% - PRN anti-tussives # Paroxysmal Atrial Fibrillation Her [id number] = 6 (HTN=1, Age>75=2, DM=1, CVA=1, Sex=1), which warrants anticoagulation. - Intermitently in atrial fibrillation - with no known history - Consulted Cardiology - recommendations appreciated - Continue metoprolol, enoxaparin # Breast Cancer s/p Left Mastectomy (2019) - Hold home letrozole # Type II Diabetes Mellitus - Hgb A1c = 6.3 % - Correction scale insulin - Hold home metformin # Osteoporosis - Hold home calcium, vitamin D, alendronate Claude Bocanegra M.D.
[2023-05-07] MEDS: ATORVASTATIN 40 MG TAB PO SCH (20:58)
[2023-05-07] MEDS ORDERED: ALBUTEROL 2.5 MG/3 ML NEB SOL NEB ONE (21:18)
[2023-05-08 04:06] LABS: Potassium 3.9 mEq/L (3.5-5.1)
[2023-05-08] MEDS: METOPROLOL TAR 25 MG TAB PO SCH ×2 (06:19→17:17)
[2023-05-08] MEDS: INSULIN -REGULAR HUMAN 50 UNIT/0.5 ML ML SQ SCH ×4 (07:30→21:27)
[2023-05-08] MEDS: LOSARTAN POTASSIUM 50 MG TABLET PO SCH ×2 (08:50→20:25)
[2023-05-08] MEDS: FOLIC ACID 1 MG TABLET PO SCH (08:50)
[2023-05-08] MEDS: ENSURE ENLIVE 237 ML CAN PO SCH ×3 (08:50→20:29)
[2023-05-08] MEDS: LETROZOLE 2.5 MG TAB PO SCH (08:50)
[2023-05-08] MEDS: AMLODIPINE 5 MG TAB PO SCH (08:50)
[2023-05-08] MEDS: ASPIRIN 81 MG CHEWABLE TABLET PO SCH (08:51)
[2023-05-08] MEDS: ENOXAPARIN 60 MG/0.6 ML SQ SCH ×2 (08:51→20:24)
[2023-05-08 14:33] LABS: SARS-CoV-2 Antigen Rapid Res Negative (Negative)
--- NOTE | 2023-05-08 19:14 | P.PN ---
Subjective Date of Service: 05/08/23 Primary Care Provider: Sedrick Muñoz Chief Complaint: Acute CVA Per RN, no new changes. History limited by expressive aphasia. She is currently in the expedited appeal process for SNF placement. No further history available at this time. Review of Systems is unable to be obtained Physical Examination - Vital Signs Temperature: 97.4 F Blood Pressure: 135/63 Pulse: 72 Respirations: 18 Pulse Ox (%): 94 Assessment And Plan - Plan - Physical Exam General: Alert, In no apparent distress, Other (expressive aphasia) HEENT: Atraumatic, Sclerae nonicteric Respiratory: Diminished, clear to ausculation bilaterally Cardiovascular: No edema, No murmurs, Irregular heart rate/rhythm Gastrointestinal: Soft and benign, Non-distended, No tenderness Musculoskeletal: No clubbing Integumentary: No rashes Neurological: Sensation intact, Abnormal speech (expressive aphasia), Abnormal strength (3-4/5 strength in LUE, 2-3/5 strength in LLE, 5/5 strength in RUE/RLE), Abnormal cranial nerve function (left lower facial droop) NIH Stroke Scale 1a. Level of consciousness: 0 - alert; keenly responsive 1b. LOC questions: 2 - aphasic 1c. LOC commands: 0 - Performs both tasks 2. Best Gaze: 0 - Normal 3. Visual: 0 - No visual loss 4. Facial Palsy: 2 - partial paralysis (lower face) 5a. Motor left arm: 2 - some effort against gravity 5b. Motor right arm: 0 - No drift for 10 seconds 6a. Motor left le - some effort against gravity 6b. Motor right le - No drift for 5 seconds 7. Limb ataxia: 0 - No ataxia 8. Sensory: 0 - Normal; no sensory loss 9. Best Language: 2 - severe expressive aphasia 10. Dysarthria: 2 - severe dysarthria 11. Extinction and Inattention: 0 - No abnormality 12. 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 Recinos - recommendations appreciated - Recommended aspirin, folic acid, atorvastatin, and enoxaparin - NIHSS = 12 - Radiology: - CT head = "vague low-density area right frontal lobe is equivocal for an acute infarction." - CT head angiogram = "several peripheral branches right middle cerebral artery diminished in caliber. No large vessel occlusion Moderate stenosis distal right internal carotid artery." - CT neck angiogram = "severe plaque left carotid bulb results in an approximately results in an approximately 70-75% stenosis." - Unable to obtain MRI given prior brain aneurysm clipping - Hold home hydrochlorothiazide, nifedipine - Transthoracic echocardiogram = "1. very poor windows 2. unable to accurately evaluate the heart on this exam 3. left ventricular ejection fraction appears overall normal" - PT/OT/WRAPPER OPENER evaluation requested - pending SNF placement (appreciate CM assistance) - q4hr neurochecks - Ordered risk profile: - Hgb A1c = 6.3 % - Lipid panel = TC 142, LDL 75, HDL 41, TG 130 - TSH = 0.639 # Possible Community Acquired Pneumonia - Evaluation thus far: - Does not meet sepsis criteria - Procalcitonin = <0.05 - Chest x-ray = "mild mid left lung opacities may represent pneumonia. Follow-up chest film in 1 month recommended for re-evaluation." - Management plan: - Completed course of ceftriaxone + azithromycin - Consulted Respiratory Therapy - Supplemental oxygen to maintain SpO2 > 92% - PRN anti-tussives # Paroxysmal Atrial Fibrillation Her [id number] = 6 (HTN=1, Age>75=2, DM=1, CVA=1, Sex=1), which warrants anticoagulation. - Intermitently in atrial fibrillation - with no known history - Consulted Cardiology - recommendations appreciated - Continue metoprolol, enoxaparin # Breast Cancer s/p Left Mastectomy (2019) - Hold home letrozole # Type II Diabetes Mellitus - Hgb A1c = 6.3 % - Correction scale insulin - Hold home metformin # Osteoporosis - Hold home calcium, vitamin D, alendronate 05/08: Currently undergoing expedited appeal for SNF placement. Claude Bocanegra M.D.
[2023-05-08] MEDS: ATORVASTATIN 40 MG TAB PO SCH (20:24)
[2023-05-09] MEDS: METOPROLOL TAR 25 MG TAB PO SCH ×2 (05:19→17:42)
[2023-05-09] MEDS: ENSURE ENLIVE 237 ML CAN PO SCH ×3 (08:41→21:00)
[2023-05-09] MEDS: INSULIN -REGULAR HUMAN 50 UNIT/0.5 ML ML SQ SCH ×4 (08:41→21:51)
[2023-05-09] MEDS: ASPIRIN 81 MG CHEWABLE TABLET PO SCH (08:42)
[2023-05-09] MEDS: LETROZOLE 2.5 MG TAB PO SCH (08:42)
[2023-05-09] MEDS: AMLODIPINE 5 MG TAB PO SCH (08:42)
[2023-05-09] MEDS: LOSARTAN POTASSIUM 50 MG TABLET PO SCH ×2 (08:42→20:33)
[2023-05-09] MEDS: FOLIC ACID 1 MG TABLET PO SCH (08:42)
[2023-05-09] MEDS: ENOXAPARIN 60 MG/0.6 ML SQ SCH ×2 (08:43→20:32)
--- NOTE | 2023-05-09 18:36 | P.PN ---
Subjective Date of Service: 05/09/23 Primary Care Provider: Sedrick Muñoz Chief Complaint: Acute CVA Per RN, no new changes. History limited by expressive aphasia. No further history available at this time. Review of Systems is unable to be obtained Physical Examination - Vital Signs Temperature: 97.1 F Blood Pressure: 149/66 Pulse: 70 Respirations: 16 Pulse Ox (%): 95 Assessment And Plan - Plan - Physical Exam General: Alert, In no apparent distress, Other (expressive aphasia) HEENT: Atraumatic, Sclerae nonicteric Respiratory: Diminished, clear to ausculation bilaterally Cardiovascular: No edema, No murmurs, Irregular heart rate/rhythm Gastrointestinal: Soft and benign, Non-distended, No tenderness Musculoskeletal: No clubbing Integumentary: No rashes Neurological: Sensation intact, Abnormal speech (expressive aphasia), Abnormal strength (3-4/5 strength in LUE, 2-3/5 strength in LLE, 5/5 strength in RUE/RLE), Abnormal cranial nerve function (left lower facial droop) NIH Stroke Scale 1a. Level of consciousness: 0 - alert; keenly responsive 1b. LOC questions: 2 - aphasic 1c. LOC commands: 0 - Performs both tasks 2. Best Gaze: 0 - Normal 3. Visual: 0 - No visual loss 4. Facial Palsy: 2 - partial paralysis (lower face) 5a. Motor left arm: 2 - some effort against gravity 5b. Motor right arm: 0 - No drift for 10 seconds 6a. Motor left le - some effort against gravity 6b. Motor right le - No drift for 5 seconds 7. Limb ataxia: 0 - No ataxia 8. Sensory: 0 - Normal; no sensory loss 9. Best Language: 2 - severe expressive aphasia 10. Dysarthria: 2 - severe dysarthria 11. Extinction and Inattention: 0 - No abnormality 12. 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 Recinos - recommendations appreciated - Recommended aspirin, folic acid, atorvastatin, and enoxaparin - NIHSS = 12 - Radiology: - CT head = "vague low-density area right frontal lobe is equivocal for an acute infarction." - CT head angiogram = "several peripheral branches right middle cerebral artery diminished in caliber. No large vessel occlusion Moderate stenosis distal right internal carotid artery." - CT neck angiogram = "severe plaque left carotid bulb results in an approximately results in an approximately 70-75% stenosis." - Unable to obtain MRI given prior brain aneurysm clipping - Hold home hydrochlorothiazide, nifedipine - Transthoracic echocardiogram = "1. very poor windows 2. unable to accurately evaluate the heart on this exam 3. left ventricular ejection fraction appears overall normal" - PT/OT/POLICE LIEUTENANT evaluation requested - pending SNF placement (appreciate CM assistance) - q4hr neurochecks - Ordered risk profile: - Hgb A1c = 6.3 % - Lipid panel = TC 142, LDL 75, HDL 41, TG 130 - TSH = 0.639 # Possible Community Acquired Pneumonia - Evaluation thus far: - Does not meet sepsis criteria - Procalcitonin = <0.05 - Chest x-ray = "mild mid left lung opacities may represent pneumonia. Follow-up chest film in 1 month recommended for re-evaluation." - Management plan: - Completed course of ceftriaxone + azithromycin - Consulted Respiratory Therapy - Supplemental oxygen to maintain SpO2 > 92% - PRN anti-tussives # Paroxysmal Atrial Fibrillation Her [id number] = 6 (HTN=1, Age>75=2, DM=1, CVA=1, Sex=1), which warrants antic oagulation. - Intermitently in atrial fibrillation - with no known history - Consulted Cardiology - recommendations appreciated - Continue metoprolol, enoxaparin # Breast Cancer s/p Left Mastectomy (2019) - Hold home letrozole # Type II Diabetes Mellitus - Hgb A1c = 6.3 % - Correction scale insulin - Hold home metformin # Osteoporosis - Hold home calcium, vitamin D, alendronate 05/08: Currently undergoing expedited appeal for SNF placement. 05/09: Currently undergoing expedited appeal for SNF placement. Appreciate CM assistance. Claude Bocanegra M.D.
[2023-05-09] MEDS: ATORVASTATIN 40 MG TAB PO SCH (20:33)
[2023-05-09 23:40] VITALS: O2SAT 96
[2023-05-10] MEDS: METOPROLOL TAR 25 MG TAB PO SCH ×2 (05:08→17:04)
[2023-05-10] MEDS: INSULIN -REGULAR HUMAN 50 UNIT/0.5 ML ML SQ SCH ×3 (07:30→17:04)
[2023-05-10] MEDS: LETROZOLE 2.5 MG TAB PO SCH (08:42)
[2023-05-10] MEDS: LOSARTAN POTASSIUM 50 MG TABLET PO SCH (08:42)
[2023-05-10] MEDS: FOLIC ACID 1 MG TABLET PO SCH (08:42)
[2023-05-10] MEDS: ENOXAPARIN 60 MG/0.6 ML SQ SCH (08:42)
[2023-05-10] MEDS: AMLODIPINE 5 MG TAB PO SCH (08:42)
[2023-05-10] MEDS: ASPIRIN 81 MG CHEWABLE TABLET PO SCH (08:42)
[2023-05-10] MEDS: ENSURE ENLIVE 237 ML CAN PO SCH ×2 (08:43→13:48)
--- NOTE | 2023-05-10 11:08 | P.DS ---
Admission Date: 04/27/23 Discharge Date: 05/10/23 Primary Care Provider: Sedrick Muñoz Disposition: TRANSFER TO RETIREMENT Comment: [facility] Discharge Condition: GOOD Reason for Admission: Acute CVA Consultations: 1. 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 Shae Schmidt is a 82 year old female who has a past medical history of brain aneurysm s/p clipping (1994), breast cancer s/p left mastectomy (2019), type 2 diabetes mellitus, dyslipidemia, hypertension, osteoporosis, and mild dementia who was admitted to the [facility] on 04/27/2023 for a left-sided facial droop and left-sided upper/lower extremity weakness. She was admitted to the Medicine service. Upon further evaluation, she was found to have an acute right frontal cerebrovascular accident. Her EKG revealed atrial fibrillation. Her chest x-ray revealed, "mild mid left lung opacities may represent pneumonia. Follow-up chest film in 1 month recommended for re- evaluation." Her CT head revealed, "vague low-density area right frontal lobe is equivocal for an acute infarction." Her CT head angiogram revealed, "several peripheral branches right middle cerebral artery diminished in caliber. No large vessel occlusion Moderate stenosis distal right internal carotid artery." Her CT neck angiogram revealed, "severe plaque left carotid bulb results in an approximately results in an approximately 70-75% stenosis." Her transthoracic echocardiogram revealed, "1. very poor windows 2. unable to accurately evaluate the heart on this exam 3. left ventricular ejection fraction appears overall normal." She was outside the window for tenecteplase. Neurology was consulted and she was evaluated by Dr. Recinos. He recommended aspirin, folic acid, atorvastatin, and enoxaparin (transitioned to apixaban). PT/OT/SHIFT LAB TECHNICIAN were consulted and it was advised that she be discharged to a facility with continued therapy services. With the assistance of case management, she was accepted to [facility]. A follow-up chest x-ray was done prior to discharge, which revealed, "mild mid lateral left lung opacities probably pneumonia." Clinically, she does not have any fever, tachycardia, tachypnea, leukocytosis, cough, apparent shortness of breath, or any signs to suggest that she actively has a pneumonia. A CT chest revealed, "moderate COPD. Left lung opacities most likely are infectious. However, as neoplasm can have a similar appearance. Followup CT chest in 1 month recommended. [id number] relatively acute compression fracture lower thoracic vertebral body." I reviewed these findings with Neurology (Dr. Recinos) and Orthopedic Surgery (Dr. Weber), who advised outpatient follow-up. They both stated that continued discharge to SNF is okay from their prespectives. She was given an additional 7-days of cefdinir and doxycycline empirically. On 05/10/2023, she was seen on rounds and deemed medically stable for discharge. A copy of this discharge summary will be sent to the above providers to facilitate continuity of care. Today, I personally spent 35 minutes on her case, of which greater than 50% of the time was spent in patient education, counseling, and coordination of care as described above. - Physical Exam General: Alert, In no apparent distress, Other (expressive aphasia) HEENT: Atraumatic, Sclerae nonicteric Respiratory: Diminished, clear to auscultation bilaterally Cardiovascular: No edema, No murmurs, Irregular heart rate/rhythm Gastrointestinal: Soft and benign, Non-distended, No tenderness Musculoskeletal: No clubbing Integumentary: No rashes Neurological: Sensation intact, Abnormal speech (expressive aphasia), Abnormal strength (3-4/5 strength in LUE, 2-3/5 strength in LLE, 5/5 strength in RUE/RLE), Abnormal cranial nerve function (left lower facial droop) NIH Stroke Scale 1a. Level of consciousness: 0 - alert; keenly responsive 1b. LOC questions: 2 - aphasic 1c. LOC commands: 0 - Performs both tasks 2. Best Gaze: 0 - Normal 3. Visual: 0 - No visual loss 4. Facial Palsy: 2 - partial paralysis (lower face) 5a. Motor left arm: 2 - some effort against gravity 5b. Motor right arm: 0 - No drift for 10 seconds 6a. Motor left le - some effort against gravity 6b. Motor right le - No drift for 5 seconds 7. Limb ataxia: 0 - No ataxia 8. Sensory: 0 - Normal; no sensory loss 9. Best Language: 2 - severe expressive aphasia 10. Dysarthria: 2 - severe dysarthria 11. Extinction and Inattention: 0 - No abnormality 12. Distal motor function: 0 - No abnormality Total Score: 12 Vital Signs/Physical Exam: Temp Pulse Resp BP Pulse Ox 98.0 F 61 14 149/85 H 95 05/10/23 08:00 05/10/23 08:00 05/10/23 08:00 05/10/23 08:00 05/10/23 08:00 Laboratory Data at Discharge: WBC 8.90 thou/uL (4.3-10.9) 05/03/23 11:24 Hgb 10.4 g/dL (12.0-15.0) L 05/03/23 11:24 Hct 30.6 % (36.0-45.0) L 05/03/23 11:24 Plt Count 227 thou/uL (152-406) 05/03/23 11:24 PT Cancelled 04/27/23 12:34 INR Cancelled 04/27/23 12:34 APTT Cancelled 04/27/23 12:34 Sodium 145 mEq/L (136-145) 05/08/23 03:30 Potassium 3.9 mEq/L (3.5-5.1) 05/08/23 03:30 BUN 20 mg/dL (7-18) H 05/08/23 03:30 Creatinine 0.59 mg/dL (0.55-1.02) 05/08/23 03:30 Glucose 315 mg/dL (74-106) H 05/08/23 03:30 Phosphorus 2.7 mg/dL (2.5-4.9) 04/28/23 08:28 Magnesium 1.9 mg/dL (1.6-2.4) 05/05/23 05:45 Total Bilirubin 0.3 mg/dL (0.2-1.0) 05/03/23 11:24 AST 47 U/L (15-37) H 05/03/23 11:24 ALT 42 U/L (13-56) 05/03/23 11:24 Alkaline Phosphatase 59 U/L (45-117) 05/03/23 11:24 Triglycerides 130 mg/dL (<150) 04/28/23 08:28 Cholesterol 142 mg/dL (<200) 04/28/23 08:28 HDL Cholesterol 41 mg/dL (40-60) 04/28/23 08:28 Cholesterol/HDL Ratio 3.46 04/28/23 08:28 Home Medications: Alendronate Sodium [Binosto] 70 mg PO Q7D 04/27/23 Aspirin Chewable [Aspirin Chewable*] 81 mg PO DAILY 04/27/23 Atorvastatin Calcium [Lipitor] 40 mg PO BEDTIME 04/27/23 Calcium Carbonate/Vitamin D3 [Calcium 600 with Vit D Chew Tb] 600 mg PO DAILY 04/27/23 Letrozole [Femara*] 2.5 mg PO DAILY 04/27/23 Metformin HCl 500 mg PO BID 04/27/23 hydroCHLOROthiazide [Hydrochlorothiazide] 25 mg PO DAILY 04/27/23 Amlodipine [Norvasc*] 5 mg PO DAILY tab 05/10/23 Apixaban [Eliquis *] 2.5 mg PO BID #60 tablet 05/10/23 Cefdinir [Cefdinir*] 300 mg PO BID cap 05/10/23 Ensure Enlive 237 ml PO TID can 05/10/23 Folic Acid 0.4 mg PO DAILY #30 05/10/23 Losartan Potassium [Cozaar*] 50 mg PO BID 05/10/23 Metoprolol Tartrate [Lopressor*] 25 mg PO BID 6AM 6PM tab 05/10/23 New Medications: Apixaban [Eliquis *] 2.5 mg PO BID #60 tablet Folic Acid 0.4 mg PO DAILY #30 Physician Discharge Instructions: - Continue care at [facility] - Your CT scan showed spots on your lungs. We will continue antibiotics in case this represents pneumonia; however, it is very important to repeat your CT scan in 1 month to make sure this is not lung cancer. There was also a fracture in your lower spine. Once discharged from [facility], please follow-up with Dr. Weber (Orthopedic Surgery) and Dr. Recinos (Neurology) for further evaluation. - Please discuss the narrowing of your carotid arteries with Dr. Recinos at your follow-up appointment. Activity: Fall precautions Followup: Curt Recinos MD [ASSOCIATE-ACTIVE - CAN ADMIT] - Rm Weber MD [ACTIVE - CAN ADMIT] - Sedrick Muñoz FNP [Primary Care Provider] - Time spent managing pt's care (in minutes): 35
--- NOTE | 2023-05-10 14:20 | RAD REPORT ---
EXAM DESCRIPTION: Lexie Single View05/10/2023 2:06 pm CLINICAL HISTORY: Chest pain COMPARISON: April 27, 2023 FINDINGS: Mild mid lateral left lung opacities without significant change. Remainder of the lungs appear clear of acute infiltrate. Old rib fractures. Heart is normal size IMPRESSION: Mild mid lateral left lung opacities probably pneumonia
--- NOTE | 2023-05-10 15:27 | RAD REPORT ---
EXAM DESCRIPTION: CT - Thorax W/ Con - 05/10/2023 3:04 pm CLINICAL HISTORY: Cough COMPARISON: May 10, 2023 chest x-ray TECHNIQUE: Computed axial tomography of the chest was obtained. 100 cc Isovue 300 was administered i ntravenously. All CT scans are performed using dose optimization technique as appropriate and may include automated exposure control or mA/KV adjustment according to patient size. FINDINGS: Moderate centrilobular emphysema 14 millimeter nodular opacity lingula. 15 millimeter ground-glass opacity lateral left lower lobe. Several additional smaller ground-glass o pacities left lung. Mild tree-in-bud opacities within the lungs No mediastinal or hilar lymphadenopathy is seen. A pleural effusion is not present. A pericardial effusion is not seen. Mild to moderate relatively acute compression fracture lower thoracic vertebral body. Retropulsion of bone into the spinal canal results in approximately 30% narrowing. Moderate thrombus within the upper abdominal aorta. Ulcerating plaque is present. Small left diaphragmatic hernia contains fat IMPRESSION: Moderate COPD Left lung opacities most likely are infectious. However, as neoplasm can have a [facility] recommended [id number] relatively acute compression fracture lower thoracic vertebral body
[2023-05-10 16:25] VITALS: BP 144/61; TEMP 99.2
[2023-05-10] MEDS ORDERED: DOXYCYCLINE 100 MG CAP PO SCH (16:30)
[2023-05-10] MEDS ORDERED: CEFDINIR 300 MG CAP PO SCH (16:30)
== END 2023-05-10 18:39 | DRG 64 ==
LOC: ER 11:33 → ERHOLD 15:47 → 2ND 16:59
PROVIDERS: ADMIT Internal Medicine; ATTEND Internal Medicine
DX: I63.9 Cerebral infarction, unspecified (principal); J18.9 Pneumonia, unspecified organism; G81.94 Hemiplegia, unspecified affecting left nondominant side; M48.54XA Collapsed vertebra, not elsewhere classified, thoracic region, initial encounter for fracture; I74.09 Other arterial embolism and thrombosis of abdominal aorta; J44.0 Chronic obstructive pulmonary disease with (acute) lower respiratory infection; I10 Essential (primary) hypertension; E87.6 Hypokalemia; I48.0 Paroxysmal atrial fibrillation; I65.23 Occlusion and stenosis of bilateral carotid arteries; E78.5 Hyperlipidemia, unspecified; M81.0 Age-related osteoporosis without current pathological fracture; E11.9 Type 2 diabetes mellitus without complications; F03.90 Unspecified dementia, unspecified severity, without behavioral disturbance, psychotic disturbance, mood disturbance, and anxiety; R29.712 NIHSS score 12; R47.01 Aphasia; Z85.3 Personal history of malignant neoplasm of breast; Z79.84 Long term (current) use of oral hypoglycemic drugs; Z79.82 Long term (current) use of aspirin; Z90.12 Acquired absence of left breast and nipple; Z79.899 Other long term (current) drug therapy; Z87.891 Personal history of nicotine dependence
CPT/HCPCS: 36415; 70450; 70496; 70498; 71045; 71260; 80048; 80053; 80061; 82947; 83036; 83605; 83735; 84100; 84145; 84443; 84484; 85025; 85610; 85730; 87040; 87804; 87811; 92526; 92610; 93005; 93306; 96365; 96375; 97110; 97112; 97116; 97161; 97165; 97530; 99285; J0696; J1650; J1815; J3480; J7050; J7121; J7613; Q9967

== ENCOUNTER 2023-07-08 10:07 | Inpatient (IN) | payer OTHER ==
--- OUTSIDE RECORDS SUMMARY | 2023-07-08 10:14 | XMS REPORT | Clinical Summary ---
:1940 Author Organization [facility] MD [facility] Address [address] [place] [address] Care Team Providers Name Role Phone Keely [...] Osteoporosis mg) by mouth every 7 days. 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 Blood pressure in the office today is 15 6/68. Patient reports home blood pressure SBP is [...] Stage IB (cT2, cN0, cM0, G2, ER+, ND+, HER2-) - Signed by Keely Vicente MD on 05/25/2020 Pathologic: Stage Unknown (pT2, pNX, cM0 , G2, ER+, ND+, HER2-) - Signed by Tami Dukes NP on 05/31/2020 Encounters Date Type Specialty Care Team Description 03/01/2023 Refill Cardiology Jake Alcazar MD Cardiovas cular stress test abnormal 03/01/2023 Refill Breast Medical [facility], Lobular ca rcinoma, NOS of overlapping lesion of breast <Female; Left>; Oncology TELLY Cooper Estrogen recept or positive status (ER+) 12/12/2022 Follow-Up Breast Medical [place], Lobular carci noma, NOS of overlapping lesion of breast <Female; Left>; Oncology TELLY Valerio termite control representative us e of aromatase inhibitor 12/12/2022 Travel 11/16/2022 Orders Only Endocrinology Francoise Villalba, Osteopor osis (Primary Dx); PA Deficiency of v itamin D3; skilled nursing use o f aromatase inhibitor 11/07/2022 Refill Endocrinology Sallie Álvarez Osteoporo sis RN 11/06/2022 Telemedicine Endocrinology Nadia Cramer MD Osteoporosi s (Primary Dx); Non-diabetic hy perglycemia; Deficiency of v itamin D3; termite control representative use o f aromatase inhibitor 11/05/2022 Telephone Endocrinology Sallie Álvarez, BRE 10/30/2022 Refill Cardiology Carmen Muhammad PA Cardiovasc ular stress test abnormal 10/30/2022 Refill Cardiology Jake Alcazar MD Cardiovas cular stress test abnormal 10/22/2022 Refill Endocrinology Shivam Ewing APRN Osteoporo sis 10/11/2022 Refill Cardiology Jake Alcazar MD Cardiovas cular stress test abnormal 10/10/2022 Orders Only Endocrinology Francoise Villalba, Osteopor osis (Primary Dx); PA Deficiency of v itamin D3 09/27/2022 Refill Endocrinology Shivam Ewing, SIGNAL ENGINEER Osteoporo sis 08/31/2022 Refill Endocrinology Shivam Ewing, TELLY Osteoporo sis 08/28/2022 Telephone Neuro-Oncology Chey Haas RN 08/09/2022 Documentation Cardiology Nieves Amanda RN 08/08/2022 Orders Only Endocrinology Shivam Ewing, TELLY Osteoporo sis (Primary Dx); Non-diabetic hy perglycemia; Deficiency of v itamin D3; termite control representative use o f aromatase inhibitor 08/06/2022 Documentation Endocrinology Nieves Hardwick RN 08/06/2022 Refill Endocrinology Nieves Hardwick Osteoporosis Lalita Olson RN 08/05/2022 Refill Cardiology Jake Alcazar MD Cardiovas cular stress test abnormal after 07/08/2022 Immunizations Name Administration Dates Next Due Pfizer SARS-CoV-2 Vaccination (Purple Cap) 11/27/2020, 10/09 Surgical History Surgery Date Site/Laterality Comments ND MASTECTOMY SIMPLE COMPLETE 05/26/2020 Breast/Left Pr ocedure: TOTAL MASTECTOMY; Surgeon: Keely Vicente MD; Location: [facility]; Service: BREAST Medical History Medical History Date [...] level of school you have High school [employer] 04/20/2020 completed or the highest degree you [...] Comments Blood Pressure 118/72 12/12/2022 3:41 PM [employer] Pulse 97 12/12/2022 3:41 PM [employer] Temperature - - Respiratory Rate 18 12/12/2022 3:41 PM [employer] Oxygen Saturation 97% 12/12/2022 3:41 PM [employer] Inhaled Oxygen Concentration - - Weight 51.9 kg (114 lb 6.7 oz) 12/12/2022 3:41 PM [employer] Height - - Body Mass Index 22.17 08/04/2020 11:17 AM CDT Plan of Treatment Date Type Specialty Care Team Description 11/26/2023 Telemedicine Endocrinology Nadia Cramer MD [address] [place], [place] [address] (Wo rk) Health Maintenance Due Date Last Done Comments COVID-19 Vaccination (3 - Pfizer risk 12/25/2020 11/27/2020 , 11/06/2020 series) Medical Devices Implanted Type Area Sales Exhibitor Device Identifier Shelf Exp iration Model / Date Serial / L ot Aneurysm Clips Description: pt. has aneurysm clips plac ed in no info per Dr. Jeffers DO NOT PROCEED WITH MRI Results Not on fileafter 07/08/2022 Insurance Payer Benefit Plan / Subscriber ID Effective Dates Phone Addre ss Type Group [employer] MEDICARE A[employer] MEDICARE [id number] 2022-Jim [id number] [place] [address] Advance Directives Code Status Date Activated Date Inactivated Comments Full Code 05/26/2020 1:15 PM 05/27/2020 11:54 AM Code Status Date Activated Date Inactivated Comments Full Code 04/28/2020 1:46 PM 04/29/2020 7:13 PM Care Teams Call Out Clerk Relationship Specialty Start Date End Date Keely Vicente MD PCP - General Breast Surgery 04/20/[address] [place] [id number] Shanthi Mckoy MD Physician Medical Oncology 04/20/[address] [place] [phone]
--- OUTSIDE RECORDS SUMMARY | 2023-07-08 10:14 | XMS REPORT | Continuity of Care Document ---
:1940 Author Organization [facility] t Address [address] [place] [address] Care Team Providers Name Role Phone [phone] Primary Care Physician Unavailable SYSTEM, PROVIDER NOT IN Attending Clinician Unavailable VIOLA CASILLAS Attending Clinician Unavailable ATA BRUNO Attending Clinician Unavailable LILLIE BIRCH Attending Clinician Unavailable Jake Alcazar MD Attending Clinician Kenneth Pérez APRN Attending Clinician [phone] Teodoro Francis APRN Attending Clinician [phone] Francoise Camacho Attending Clinician Sallie Álvarez RN Attending Clinician Unavailable Nadia Cramer MD Attending Clinician Carmen Bolton Attending Clinician Shivam Ewing APRN Attending Clinician Chey Haas RN Attending Clinician Unavailable Nieves Amanda RN Attending Clinician Unavailable Nieves Hardwick RN Attending Clinician Unavailable Mely Stack APRN Attending Clinician KARSON HERNÁNDEZ Attending Clinician Unavailable JENIFER CAMARENA [...] Policy Number Effective Date Expiration Date S ouryi MEDICARE PART A [id number] 2006 AND B 00:00:00 [employer] HMO [id number] 2000 00:00:00 Problems Condition Condition Condition Status Onset Resolution Last Treating Co mments Source Name Details Category Date Date Treatment Clinician Date Non-diabet Non-diabet Disease Active 2019-10 [facility]-06 [place] jim[place] 00 MD [facility] 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 8-19 it y of erosis erosis 00:00: [place] 00 MD Maximino mckinney [facility] Current Current Disease Active Univers use of use of 8-19 ity of aspirin aspirin 00:00: [place] 00 [facility] Chronic Chronic Disease Active Univers obstructiv obstructiv 8-19 it y of e e 00:00: [place] pulmonary pulmonary 00 disease disease [facility] Impaired Impaired Disease Active Unive rs cognition cognition 8-19 [facility] 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-ca 8-19 it y of eze eze 00:00: [place] malnutriti malnutriti 00 MD on on [facility] 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 00:00: [place] 00 MD Maximino mckinney [facility] Cardiovasc Cardiovasc Disease Active Last U delroy gaston alek 7-31 Assessmen ity of stress stress 00:00: t & Plan: [place] test test 00 Desire GARCIA abnormal abnormal g of this And erso [...] of aorta aorta 00:00: t & Plan: [place] Desire bales of this Anderso note n [...] dependence dependence 04-29 it y of 00:00: 00 MD Maximino mckinney [facility] Essential Essential Disease Active Last Uni vers hypertensi hypertensi 04-28 Assessmen ity of on on 00:00: t & Plan: [place] Desire bales of this Anderso note n [...] 00:00: [place] (ECG) (ECG) 00 (EKG) (EKG) [facility] Estrogen Estrogen Disease Active Unive rs receptor receptor 7-15 ity of positive positive 00:00: [place] status status 00 (ER+) (ER+) [facility] 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 Family History Family Member Diagnosis Comments Start Date Stop Date Source Natural daughter Cervical cancer [facility]ity [facility] [place] [facility] Natural [facility] [place] [facility] Natural [facility] [place] [facility] Social History Social Habit Start Date Stop Date Quantity Comments Source History of tobacco 1961-03-07 Cigarette Smoker University of use 00:00:00 [place] MD Beni baugh [facility] Alcohol intake 2022-12-12 2022-12-12 Lifetime University of 00:00:00 00:00:00 non-drinker [place] MD Blake mckenzie ([facility]) [facility] Tobacco use and 2020-04-29 2020-04-29 Smokeless Universit y of exposure 00:00:00 00:00:00 tobacco non-user [facility] Cigarettes smoked 2020-04-29 2020-04-29 Univers ity of current (pack per 00:00:00 00:00:00 [place] Fauzia Lopez ) - Reported Cancer Ce nter Cigarette 2020-04-29 2020-04-29 University of pack-years 00:00:00 00:00:00 [place] MD Bazan [facility] Education 2020-04-20 2020-04-20 13 University of 00:00:00 00:00:00 [place] MD Bazan [facility] Sex [birth year] At [birth year] F Universit y of 00:00:00 00:00:00 [place] MD Bazan [facility] Smoking Status Start Date Stop Date Source Smokes tobacco daily 2020-04-29 00:00:00 Univers ity of [facility] Medications Ordered Filled Start Stop Current Ordering Indication Dosage Frequency Signature Comments Components Source Medication Medication Date Date Medication? Clinician (SIG) Name Name letrozole Yes Estrogen TAKE 1 Un lis (FEMARA) 5-26 receptor TABLET BY it y of 2.5 mg 00:00: positive MOUTH [place] tablet 00 status EVERY DAY (ER+) [facility] letrozole Yes Estrogen TAKE 1 Un lis (FEMARA) 5-26 receptor TABLET BY it y of 2.5 mg 00:00: positive MOUTH [place] tablet 00 status EVERY DAY (ER+) [facility] alendronate 2023-0 Yes Osteoporosi 70mg Take 1 Univers (FOSAMAX) 2-01 s tablet (70 ity of 70 mg 00:00: mg) by [place] tablet 00 mouth MD every 7 Anderso days. n [facility] alendronate Yes Osteoporosi 70mg Take 1 Univers (FOSAMAX) 2-01 s tablet (70 ity of 70 mg 00:00: mg) by [place] tablet 00 mouth MD every 7 Anderso days. n [facility] alendronate 2021-10- No Osteoporosi TAKE 1 Univers (FOSAMAX) 2- 02- s TABLET BY ity of 70 mg 00:00: 00:00 MOUTH ONE [place] tablet 00 :00 TIME PER MD WEEK [facility] alendronate 2021-10- No Osteoporosi TAKE 1 Univers (FOSAMAX) 2-28 11- s TABLET BY ity of 70 mg 00:00: 00:00 MOUTH ONE [place] tablet 00 :00 TIME PER MD WEEK [facility] alendronate 2021-10- No Osteoporosi TAKE 1 Univers (FOSAMAX) 1-28 12-22 s TABLET BY ity of 70 mg 00:00: 00:00 MOUTH [place] tablet 00 :00 EVERY 7 [facility] alendronate 2021-10- No Osteoporosi TAKE 1 Univers (FOSAMAX) 1-28 12-22 s TABLET BY ity of 70 mg 00:00: 00:00 MOUTH [place] tablet 00 :00 EVERY 7 [facility]YS [facility] alendronate 2021-10- No Osteoporosi 70mg Take 1 Univers (FOSAMAX) - 11-28 s tablet (70 ity of 70 mg 00:00: 00:00 mg) by [place] tablet 00 :00 mouth MD every 7 Anderso days. n [facility] alendronate 2021-10- No Osteoporosi 70mg Take 1 Univers (FOSAMAX) - 11-28 s tablet (70 ity of 70 mg 00:00: 00:00 mg) by [place] tablet 00 :00 mouth MD every 7 Anderso days. [facility] letrozole 2022- No Estrogen 2.5mg Take 1 Univers (FEMARA) 06-06 05-26 receptor tablet ity of 2.5 mg 00:00: 00:00 [place] (2.5 mg) [place] tablet 00 :00 status by mouth (ER+) daily. [facility] letrozole 2022- No Estrogen 2.5mg Take 1 Univers (FEMARA) 06-06 05-26 receptor tablet ity of 2.5 mg 00:00: 00:00 positive (2.5 mg) [place] tablet 00 :00 status by mouth (ER+) daily. [facility] atorvastati Yes Cardiovascu TAKE 1 Univers n (LIPITOR) 6-15 lar stress TABLET BY ity of 40 mg 00:00: test MOUTH [place] tablet 00 abnormal EVERY DAY [facility] atorvastati Yes Cardiovascu TAKE 1 Univers n (LIPITOR) 6-15 lar stress TABLET BY ity of 40 mg 00:00: test MOUTH [place] tablet 00 abnormal EVERY DAY [facility] hydroCHLORO Yes TAKE 1 Univ ers thiazide 2-02 TABLET BY ity of (HYDRODIURI 00:00: MOUTH [place] L) 12.5 mg 00 EVERY DAY tablet [facility] hydroCHLORO Yes TAKE 1 Univ ers thiazide 2-02 TABLET BY ity of (HYDRODIURI 00:00: MOUTH [place] L) 12.5 mg 00 EVERY DAY tablet [facility] aspirin 81 Yes Cardiovascu CHEW 1 Univers mg chewable 1-26 lar stress TABLET BY ity of tablet 00:00: test MOUTH [place] 00 abnormal EVERY DAY [facility] aspirin 81 Yes Cardiovascu CHEW 1 Univers mg chewable 1-26 lar stress TABLET BY ity of tablet 00:00: test MOUTH [place] 00 abnormal EVERY DAY [facility] NIFEdipine Yes Univers (ADALAT CC) 09 ity of 30 MG 24 hr 00:00: [place] tablet 00 [facility] NIFEdipine Yes Univers (ADALAT CC) 109 ity of 30 MG 24 hr 00:00: [place] tablet 00 [facility] memantine 2022- No Dementia, Take a Univers (Namenda) 10-10 03-08 not half ity of 10 mg 00:00: 00:00 otherwise tablet (5 [place] tablet 00 :00 specified mg) twice MD a day for Anderso 14 days n then 1 Cancer tablet (10 Center mg) twice a day. memantine 2022- No Dementia, Take a Univers (Namenda) 10-10 not half ity of 10 mg 00:00: 00:00 otherwise tablet (5 [place] tablet 00 :00 specified mg) twice MD a day for Anderso 14 days n then 1 Cancer tablet (10 Center mg) twice a day. letrozole 2021- No Estrogen 2.5mg Take 1 Univers (FEMARA) 04-17 08 receptor tablet ity of 2.5 mg 00:00: 00:00 positive (2.5 mg) [place] tablet 00 :00 status by mouth MD (ER+) daily. [facility] alendronate 2021- No Osteoporosi 70mg Take 1 Univers (FOSAMAX) 4-30 10-31 s tablet (70 ity of 70 mg 00:00: 00:00 mg) by [place] tablet 00 :00 mouth MD every 7 Anderso days. n [facility] alendronate 2021- No Osteoporosi 70mg Take 1 Univers (FOSAMAX) 4-30 10-31 s tablet (70 ity of 70 mg 00:00: 00:00 mg) by [place] tablet 00 :00 mouth MD every 7 Anderso days. [facility] hydroCHLORO 2022- No Essential TAKE 1 Univers thiazide 12-06 hypertensio TABLET BY ity of (HYDRODIURI 00:00: 00:00 n [place]OUTH [place] L) 25 mg 00 :00 EVERY DAY MD tablet [facility] hydroCHLORO 2022- No Essential TAKE 1 Univers thiazide 12-06 hypertensio TABLET BY ity of (HYDRODIURI 00:00: 00:00 n [place]OUTH [place] L) 25 mg 00 :00 EVERY DAY MD tablet [facility] NIFEdipine 2019-10- No Hypertensiv 30mg Take 1 Univers (PROCARDIA 10-15 e urgency tablet (30 ity of XL) 30 mg 00:00: 00:00 mg) by [place] 24 hr 00 :00 mouth tablet daily. [facility] NIFEdipine 2019-10- Hypertensiv 30mg Take 1 Univers (PROCARDIA 10-15 e urgency tablet (30 ity of XL) 30 mg 00:00: 00:00 mg) by [place] 24 hr 00 :00 mouth tablet daily. [facility] Immunizations Ordered Filled Date Status Comments Source Immunization Name Immunization Name Pfizer SARS-CoV-2 2020-11-27 Completed Univer sity of Vaccination (Purple 00:00:00 [place] GARCIA [place]) [facility] Pfizer SARS-CoV-2 2020-11-06 Completed Univer sity of Vaccination (Purple 00:00:00 [place] MD [place]) [facility] Pfizer SARS-CoV-2 Unknown Completed Univer sity of Vaccination ([facility]) [facility] Pfizer SARS-CoV-2 Unknown Completed Univer sity of Vaccination ([facility]) [facility] Vital Signs Vital Name Observation Time Observation [...] 21:41:20 118 mm[Hg] Univer sity of pressure [place] [facility] Diastolic blood 2022-12-12 21:41:20 72 mm[Hg] Unive rsity of pressure [place] [facility] Heart rate 2022-12-12 21:41:20 97 /min Universi ty of [place] [facility] Respiratory rate 2022-12-12 21:41:20 18 /min [facility] MD [place] [facility] Body weight 2022-12-12 21:41:20 51.9 kg [facility] MD [place] [facility] BMI 2022-12-12 21:41:20 22.17 kg/m2 [facility] MD [place] [facility] Oxygen saturation in 2022-12-12 21:41:20 97 /min University Arterial blood by Brooks youngrson Pulse oximetry [facility] Body temperature 2022-06-06 17:55:47 36.72 Fabiana [facility] MD [place] [facility] Procedures Procedure Date / Time Performed Performing Clinician Sourc e MAMMO DIGITAL 2022-06-06 16:42:19 Mely Stack [facility] DIAGNOSTIC RIGHT W MD Ismael gabriel URIEL [place] Plan of Care Planned Activity Planned Date Details Comments Source Future Scheduled 2023-06-05 COVID-19 Vaccination Uni versity [facility] Test 12:42:42 (3 - Pfizer risk MD Ismael Cancer series) [code = Center COVID-19 Vaccination (3 - Pfizer risk series)] Future Scheduled 2023-03-01 COVID-19 Vaccination Uni vers[facility] of [place] Test 13:40:45 (3 - Pfizer risk MD Ismael Cancer series) [code = Center COVID-19 Vaccination (3 - Pfizer risk series)] Encounters Start End Encounter Admission Attending Care Care Encounter Source Date/Time Date/Time Type Type Clinicians Facility Department ID 2022-08-16 Outpatient SYSTEM, MDA KALEIGH [id number] 13:26:49 PROVIDER [place] mckinney 2020-05-23 Outpatient KALEIGH CASILLAS MDA [id number] 17:50:20 VIOLA mckinney 2020-05-03 Outpatient KALEIGH MDA [id number] 09:47:29 Anderso faye 2020-05-02 Outpatient KALEIGH MDA [id number] 15:25:32 [place] faye 2020-04-20 Outpatient ATA BRUNO MDA Breast Judith [id number] 17:32:13 Anders[place] faye 2020-04-20 Outpatient SAPNA BIRCH MDA MDA [id number] 14:56:37 LILLIE mckinney 2020-04-20 Outpatient SAPNA BIRCH MDA MDA [id number] 14:28:12 LILLIE mckinney 2020-04-18 Outpatient SYSTEM, [facility] [id number] 08:19:59 PROVIDER [facility] 2023-03-01 2023-03-01 Refgalen Alcazar, 1.2.840.1 [id number] Univers 00:00:00 00:00:00 Jake 11747.1.1 ity of 3.412.2.7 [place] .3.173535 MD Orta8 [facility] 2023-03-01 2023-03-01 Georgina Worley 1.2.840.1 [id number] Univers 00:00:00 00:00:00 Kenneth stover 88187.1.1 i ty of 3.412.2.7 [place] .3.305576 MD Orta8 [facility] 2023-03-01 2023-03-01 Refgalen Alcazar 1.2.840.1 [id number] Univers 00:00:00 00:00:00 Jake 68705.1.1 ity of 3.412.2.7 [place] .3.651164 MD Orta8 [facility] 2023-03-01 2023-03-01 Georgina Worley 1.2.840.1 [id number] Univers 00:00:00 00:00:00 Kenneth stover 40017.1.1 i ty of 3.412.2.7 [place] .3You446156 MD Orta8 [facility] 2022-12-12 2022-12-12 Follow-Up SAPNA Francis, 1.2.840.1 [id number] Univers 16:00:00 16:11:38 Teodoro 55237.1.1 it y of 3.412.2.7 [place] .3You814610 MD Orta8 [facility] 2022-12-12 2022-12-12 Follow-Up Penny, 1.2.840.1 [id number] Univers 16:00:00 16:11:38 Coreyanesha 94065.1.1 it y of 3.412.2.7 [place] .3You755963 MD Orta8 [facility] 2022-12-12 2022-12-12 Travel 1.2.840.1 1.2.470.369 [id number] Univers 00:00:00 00:00:00 13071.1.1 350.1.13.41 ity of 3.412.2.7 2.2.7.3.698 [place] .3.347143 084.8 MD Orta8 [facility] 2022-12-12 2022-12-12 Travel 1.2.840.1 1.2.683.105 [id number] Univers 00:00:00 00:00:00 15313.1.1 350.1.13.41 ity of 3.412.2.7 2.2.7.3.698 [place] .3.823205 084.8 MD [place] [facility] 2022-11-16 2022-11-16 Carin Villalba, 1.2.840.1 [id number] Univers 00:00:00 00:00:00 Only Francoise 17268.1.1 ity of 3.412.2.7 [place] .3.879184 MD Orta8 [facility] 2022-11-16 2022-11-16 Carin Villalba, 1.2.840.1 [id number] Univers 00:00:00 00:00:00 Only Francoise 90027.1.1 ity of 3.412.2.7 [place] .3.182314 MD Orta8 [facility] 2022-11-07 2022-11-07 Refgalen Álvarez, 1.2.840.1 [id number] Univers 00:00:00 00:00:00 Sallie 27075.1.1 ity of 3.412.2.7 [place] .3.059811 MD Orta8 [facility] 2022-11-07 2022-11-07 Refill Surima, 1.2.840.1 [id number] Univers 00:00:00 00:00:00 Sallie 37159.1.1 ity of 3.412.2.7 [place] .3.305318 MD [place] [facility] 2022-11-06 2022-11-06 [facility] 1.2.840.1 [id number] Univers 13:30:00 13:48:09 ne 20705.1.1 ity of 3.412.2.7 [place] .3.776870 MD Orta8 [facility] 2022-11-06 2022-11-06 [facility] 1.2.840.1 [id number] Univers 13:30:00 13:48:09 ne 49006.1.1 ity of 3.412.2.7 [place] .3.000199 MD [place] [facility] 2022-11-05 2022-11-05 Telephone Surima, 1.2.840.1 [id number] Univers 00:00:00 00:00:00 Sallie 65937.1.1 ity of 3.412.2.7 [place] .3.134390 MD Orta8 [facility] 2022-11-05 2022-11-05 Telephone Surima, 1.2.840.1 [id number] Univers 00:00:00 00:00:00 Sallie 82406.1.1 ity of 3.412.2.7 [place] .3.165560 MD [place] [facility] 2022-10-30 2022-10-30 Refill Muhammad, 1.2.840.1 [id number] Univers 00:00:00 00:00:00 Hasana 30298.1.1 ity of 3.412.2.7 [place] .3.347102 MD [place] [facility] 2022-10-30 2022-10-30 Refill Ottoniel, 1.2.840.1 [id number] Univers 00:00:00 00:00:00 Jake 28928.1.1 ity of 3.412.2.7 [place] .3.729600 MD [place] [facility] 2022-10-30 2022-10-30 Georgina Muhammad, 1.2.840.1 [id number] Univers 00:00:00 00:00:00 Hasana 78833.1.1 ity of 3.412.2.7 [place] .3.696805 MD Orta8 [facility] 2022-10-30 2022-10-30 Georgina Alcazar 1.2.840.1 [id number] Univers 00:00:00 00:00:00 Jake 13220.1.1 ity of 3.412.2.7 [place] .3.001680 MD Orta8 [facility] 2022-10-22 2022-10-22 Shivam Brown 1.2.840.1 [id number] Univers 00:00:00 00:00:00 01163.1.1 ity of 3.412.2.7 [place] .3.984603 MD Orta8 [facility] 2022-10-22 2022-10-22 Shivam Brown 1.2.840.1 [id number] Univers 00:00:00 00:00:00 77176.1.1 ity of 3.412.2.7 [place] .3.660211 MD Orta8 [facility] 2022-10-11 2022-10-11 Georgina Alcazar 1.2.840.1 [id number] Univers 00:00:00 00:00:00 Jake 94684.1.1 ity of 3.412.2.7 [place] .3.489267 MD Orta8 [facility] 2022-10-11 2022-10-11 Georgina Alcazar 1.2.840.1 [id number] Univers 00:00:00 00:00:00 Jake 53597.1.1 ity of 3.412.2.7 [place] .3.577103 MD Otra8 [facility] 2022-10-10 2022-10-10 Carin Villalba 1.2.840.1 [id number] Univers 00:00:00 00:00:00 Only Francoise 41861.1.1 ity of 3.412.2.7 [place] .3.366901 MD Orta8 [facility] 2022-10-10 2022-10-10 Carin Villalba, 1.2.840.1 [id number] Univers 00:00:00 00:00:00 Only Francoise 30005.1.1 ity of 3.412.2.7 [place] .3.443023 MD Orta8 [facility] 2022-09-27 2022-09-27 Shivam Brown 1.2.840.1 [id number] Univers 00:00:00 00:00:00 82663.1.1 ity of 3.412.2.7 [place] .3.396043 MD [place] [facility] 2022-09-27 2022-09-27 Shivam Brown 1.2.840.1 [id number] Univers 00:00:00 00:00:00 22709.1.1 ity of 3.412.2.7 [place] .3.182888 MD [place] [facility] 2022-08-31 2022-08-31 Shivam Brown 1.2.840.1 [id number] Univers 00:00:00 00:00:00 73392.1.1 ity of 3.412.2.7 [place] .3.090771 MD [place] [facility] 2022-08-31 2022-08-31 Shivam Brown 1.2.840.1 [id number] Univers 00:00:00 00:00:00 68832.1.1 ity of 3.412.2.7 [place] .3.454639 MD [place] [facility] 2022-08-28 2022-08-28 Julio Cesar Haas 1.2.840.1 [id number] Univers 00:00:00 00:00:00 Upson 33242.1.1 i ty of T 3.412.2.7 [place] .3.480718 MD [place] [facility] 2022-08-28 2022-08-28 Telephone Dee Deecarleykrystal, 1.2.840.1 [id number] Univers 00:00:00 00:00:00 Chey 87358.1.1 i ty of T 3.412.2.7 [place] .3.624107 MD Orta8 [facility] 2022-08-09 2022-08-09 Documentat Querchloe, 1.2.840.1 [id number] Univers 00:00:00 00:00:00 ion Nieves 32739.1.1 ity of 3.412.2.7 [place] .3.778987 MD [place] [facility] 2022-08-09 2022-08-09 Documentat Querchloe, 1.2.840.1 [id number] Univers 00:00:00 00:00:00 ion Nieves 22116.1.1 ity of 3.412.2.7 [place] .3.793275 MD [place] [facility] 2022-08-08 2022-08-08 Shivam Varela 1.2.840.1 [id number] Univers 00:00:00 00:00:00 Only 61108.1.1 ity of 3.412.2.7 [place] .3.111216 MD [place] [facility] 2022-08-08 2022-08-08 Shivam Varela 1.2.840.1 [id number] Univers 00:00:00 00:00:00 Only 07633.1.1 ity of 3.412.2.7 [place] .3.261704 MD [place] [facility] 2022-08-06 2022-08-06 Documentat Nieves Hardwick 1.2.840.1 [id number] Univers 00:00:00 00:00:00 ion Lalita Olson 98112.1.1 i ty of 3.412.2.7 [place] .3.688413 MD [place] [facility] 2022-08-06 2022-08-06 Georgina RonenNieves 1.2.840.1 [id number] Univers 00:00:00 00:00:00 Lalita O 84874.1.1 i ty of 3.412.2.7 [place] .3.590885 MD Orta8 [facility] 2022-08-06 2022-08-06 Documentazalea RonenNieves 1.2.840.1 [id number] Univers 00:00:00 00:00:00 ion Lalita O 38288.1.1 i ty of 3.412.2.7 [place] .3.255611 MD [place] [facility] 2022-08-06 2022-08-06 Georgina HardwickNieves 1.2.840.1 [id number] Univers 00:00:00 00:00:00 Lalita O 78857.1.1 i ty of 3.412.2.7 [place] .3.607332 MD Orta8 [facility] 2022-08-05 2022-08-05 Georgina Alcazar, 1.2.840.1 [id number] Univers 00:00:00 00:00:00 Jake 79708.1.1 ity of 3.412.2.7 [place] .3.800817 MD Orta8 [facility] 2022-08-05 2022-08-05 Georgina Alcazar, 1.2.840.1 [id number] Univers 00:00:00 00:00:00 Jake 95422.1.1 ity of 3.412.2.7 [place] .3.636612 MD Orta8 [facility] 2022-06-29 2022-06-29 Georgina Alcazar, 1.2.840.1 [id number] Univers 00:00:00 00:00:00 Jake 77066.1.1 ity of 3.412.2.7 [place] .3.996976 MD Orta8 [facility] 2022-06-06 2022-06-06 Hospital SAPNA Sreekanth, 1.2.840.1 [id number] [facility] 10:40:43 23:59:00 Encounter Mely Calvert 77247.1.1 i ty of 3.412.2.7 [place] .3.343404 .8 [facility] 2022-06-06 2022-06-06 Office EL Kenneth Pérez 1.2.840.1 [id number] Univers 13:00:00 13:30:00 Visit Teodoro Francis 41022.1.1 ity of 3.412.2.7 [place] .3.519905 .8 [facility] 2022-06-06 2022-06-06 Travel 1.2.840.1 1.2.529.092 [id number] Univers 00:00:00 00:00:00 54306.1.1 350.1.13.41 ity of 3.412.2.7 2.2.7.3.698 [place] .3.122336 084.8 .8 [facility] 2022-05-10 2022-05-10 Refill Muhammad, 1.2.840.1 [id number] Univers 00:00:00 00:00:00 Hasana 11115.1.1 ity of 3.412.2.7 [place] .3.448931 MD Orta8 [facility] 2021-11-21 2021-11-21 Outpatient SAPNA HERNÁNDEZ MDA MDA [id number] 11:01:18 11:56:01 KARSON mckinney 2021-09-05 2021-09-05 Outpatient SAPNA CAMARENA MDA MDA [id number] 13:49:58 13:49:58 JENIFER mckinney 2021-08-14 2021-08-14 Outpatient SAPNA FARRELL MDA MDA [id number] 10:37:25 10:37:25 JULIET mckinney 2021-04-17 2021-04-17 Outpatient SAPNA HERNÁNDEZ MDA MDA [id number] 09:02:01 23:59:00 KARSON [place] o [place] 2021-04-17 2021-04-17 Outpatient SAPNA HERNÁNDEZ, MDA MDA [id number] MD 11:08:31 11:48:48 KARSON mckinney 2020-11-27 2020-11-27 Outpatient ATA TRAN MDA MDA [id number] 11:58:10 12:49:21 Bay mckinney 2020-11-06 2020-11-06 Outpatient SAPNA KOWALSKI, MDA MDA [id number] MD 12:21:40 12:41:08 BUCKY [place] 2020-10-17 2020-10-17 Outpatient SAPNA FARRELL, MDA MDA [id number] MD 11:15:00 23:59:00 JULIET mckinney 2020-10-17 2020-10-17 Outpatient SAPNA HERNÁNDEZ, MDA MDA [id number] MD 12:10:36 13:06:00 KARSON mckinney 2020-08-30 2020-08-30 Outpatient SAPNA CAMARENA, MDA MDA [id number] MD 08:58:09 08:58:09 JENIFER mckinney 2020-08-19 2020-08-19 Outpatient SAPNA CAMARENA, MDA MDA [id number] MD 11:31:56 11:31:56 JENIFER mckinney 2020-08-16 2020-08-16 Outpatient SAPNA SPANN, MDA MDA [id number] MD 07:45:33 23:59:00 LILLIE mckinney 2020-08-16 2020-08-16 Outpatient SAPNA CAMARENA, MDA MDA [id number] MD 08:40:53 08:40:53 JENIFER mckinney 2020-08-09 2020-08-09 Outpatient SAPNA CAMARENA MDA MDA [id number] 11:14:47 11:14:47 JENIFER mckinney 2020-08-05 2020-08-05 Outpatient SAPNA JONES, MDA MDA [id number] 15:42:17 16:25:54 EVAN mckinney 2020-08-04 2020-08-04 Outpatient SAPNA CAMARENA MDA MDA [id number] 12:53:23 12:53:23 JENIFER [place] 2020-08-04 2020-08-04 Outpatient SAPNA MACIAS, MDA MDA [id number] MD 10:54:25 11:53:55 TED [place] o faye 2020-08-04 2020-08-04 Outpatient SAPNA SPANN, MDA MDA [id number] MD 09:32:53 10:12:07 LILLIE [place] o faye 2020-07-12 2020-07-12 Outpatient SAPNA CAMARENA, MDA MDA [id number] MD 00:00:00 00:00:00 JENIFER [place] 2020-06-08 2020-06-08 Outpatient SAPNA HERNÁNDEZ, MDA MDA [id number] MD 11:59:30 12:41:48 KARSON [place] 2020-06-08 2020-06-08 Outpatient ATA TRAN MDA MDA [id number] MD 11:27:29 11:27:29 [place] 2020-06-08 2020-06-08 Outpatient ATA TRAN MDA MDA [id number] MD 10:30:52 10:30:52 [place] o [place] 2020-06-08 2020-06-08 Outpatient ATA TRAN MDA MDA [id number] MD 00:00:00 00:00:00 [place] 2020-06-01 2020-06-01 Outpatient ATA TRAN MDA MDA [id number] 11:15:07 11:15:07 [place] o [place] 2020-05-30 2020-05-30 Outpatient ATA TRAN MDA MDA [id number] MD 00:00:00 00:00:00 [place] 2020-05-26 2020-05-27 Outpatient ATA TRAN MDA Breast Judith 1 [id number] MD 10:14:00 09:12:00 [place] o [place] 2020-05-26 2020-05-26 Outpatient SAPNA DIEHL, MDA MDA [id number] MD 10:18:34 23:59:00 BECCA [place] o faye 2020-05-25 2020-05-25 Outpatient SAPNA DIEHL, MDA MDA [id number] MD 11:45:41 23:59:00 BECCA [place] faye 2020-05-25 2020-05-25 Outpatient ATA TRAN MDA MDA [id number] MD 10:08:18 11:54:52 [place] 2020-05-24 2020-05-24 Outpatient COLLEEN, MDA MDA [id number] MD 00:00:00 00:00:00 TED mckinney 2020-05-23 2020-05-23 Outpatient ATA TRAN MDA MDA [id number] 15:40:49 15:40:49 [place] mckinney 2020-05-23 2020-05-23 Outpatient SAPNA DIEHL, MDA MDA [id number] MD 11:35:30 14:17:18 BECCA mckinney 2020-05-23 2020-05-23 Outpatient SAPNA DIEHL, MDA MDA [id number] MD 11:14:47 11:14:47 BECCA mckinney 2020-05-23 2020-05-23 Outpatient SAPNA DIEHL, MDA MDA [id number] MD 00:00:00 00:00:00 BECCA mckinney 2020-05-20 2020-05-20 Outpatient SAPNA OSBORNE, MDA MDA [id number] MD 00:00:00 00:00:00 BYRON mckinney 2020-05-19 2020-05-19 Outpatient SAPNA OSBORNE, MDA MDA [id number] MD 12:06:21 12:06:21 BYRON mckinney 2020-05-18 2020-05-18 Outpatient ATA TRAN MDA MDA [id number] 15:17:20 15:17:20 [place] mckinney 2020-05-18 2020-05-18 Outpatient SAPNA DIEHL, MDA MDA [id number] 00:00:00 00:00:00 BECCA mckinney 2020-05-13 2020-05-13 Outpatient SAPNA CAMARENA MDA MDA [id number] 12:34:58 23:59:00 JENIFER [place] 2020-05-13 2020-05-13 Outpatient SAPNA CAMARENA, MDA MDA [id number] 10:13:15 10:13:15 JENIFER mckinney 2020-05-10 2020-05-10 Outpatient SAPNA JONES, MDA MDA [id number] 09:37:33 23:59:00 EVAN mckinney 2020-05-10 2020-05-10 Outpatient SAPNA JONES, MDA MDA [id number] MD 09:11:54 09:36:00 EVAN Bazan so faye 2020-05-09 2020-05-09 Outpatient ATA TRAN MDA MDA [id number] MD 15:13:50 15:13:50 Bay ricardo mckinney 2020-05-06 2020-05-06 Outpatient SAPNA DIEHL, MDA MDA [id number] MD 14:25:16 14:25:16 BECCA mckinney 2020-05-06 2020-05-06 Outpatient SAPNA DIEHL, MDA MDA [id number] MD 00:00:00 00:00:00 BECCA mckinney 2020-05-06 2020-05-06 Outpatient ATA TRAN MDA MDA [id number] MD 00:00:00 00:00:00 [place] 2020-05-06 2020-05-06 Outpatient ATA TRAN MDA MDA [id number] MD 00:00:00 00:00:00 [place] 2020-05-06 2020-05-06 Outpatient SAPNA FREEMAN, MDA MDA [id number] MD 00:00:00 00:00:00 SARAH [place] 2020-05-06 2020-05-06 Outpatient SAPNA FREEMAN, MDA MDA [id number] 00:00:00 00:00:00 SARAH [place] 2020-05-06 2020-05-06 Outpatient SAPNA DIEHL, MDA MDA [id number] MD 00:00:00 00:00:00 BECCA mckinney 2020-05-04 2020-05-04 Outpatient ATA TRAN MDA MDA [id number] MD 00:00:00 00:00:00 [place] ricardo mckinney 2020-05-04 2020-05-04 Outpatient ATA TRAN MDA MDA [id number] MD 00:00:00 00:00:00 [place] 2020-05-04 2020-05-04 Outpatient SAPNA MACIAS, MDA MDA [id number] MD 00:00:00 00:00:00 TED [place] 2020-05-03 2020-05-03 Outpatient SAPNA DIEHL, MDA MDA [id number] MD 10:58:21 23:59:00 BECCA [place] 2020-05-03 2020-05-03 Outpatient SAPNA WILLOUGHBY, MDA MDA [id number] MD 11:52:35 13:09:26 SAM [place] 2020-05-03 2020-05-03 Outpatient SAPNA DIEHL, MDA MDA [id number] MD 10:00:00 10:57:00 BECCA mckinney 2020-05-03 2020-05-03 Outpatient EL FAZAL, MDA MDA [id number] MD 09:28:39 09:59:00 BECCA mckinney 2020-05-03 2020-05-03 Outpatient EL FAZAL, MDA MDA [id number] MD 08:49:46 09:27:00 BECCA mckinney 2020-05-03 2020-05-03 Outpatient EL FAZAL, MDA MDA [id number] MD 07:59:34 08:48:00 BECCA mckinney 2020-04-28 2020-04-29 Outpatient ER WATNATASHAA, MDA Emergency [id number] MD 10:13:00 17:08:00 BON mckinney 2020-04-29 2020-04-29 Outpatient EL DYLON, MDA MDA [id number] MD 09:35:49 09:35:49 BYRON mckinney 2020-04-29 2020-04-29 Outpatient EL ATA BRUNO MDA MDA [id number] MD 09:35:45 09:35:45 [place] mckinney 2020-04-29 2020-04-29 Outpatient EL MDA MDA [id number] MD 06:32:13 06:32:13 Baysita mckinney 2020-04-28 2020-04-28 Emergency MDA MDA [id number] MD 10:53:53 10:53:53 Baysita mckinney 2020-04-28 2020-04-28 Outpatient EL ATA BRUNO MDA MDA [id number] 08:27:43 10:12:00 [place] mckinney 2020-04-28 2020-04-28 Outpatient EL ATA BRUNO MDA MDA [id number] MD 08:27:22 10:12:00 [place] mckinney 2020-04-28 2020-04-28 Outpatient EL FARTUN, MDA MDA [id number] MD 00:00:00 00:00:00 SAM mckinney 2020-04-28 2020-04-28 Outpatient EL ATA BRUNO MDA MDA [id number] 00:00:00 00:00:00 [place] mckinney 2020-04-28 2020-04-28 Outpatient EL FREEMAN, MDA MDA [id number] 00:00:00 00:00:00 SARAH mckinney 2020-04-26 2020-04-26 Outpatient EL COLLEEN, MDA MDA [id number] MD 08:40:06 09:36:30 TED mckinney 2020-04-20 2020-04-20 Outpatient EL SHELBIE, MDA MDA [id number] 11:07:36 11:07:36 ABDIRAHMAN [place] 2020-04-20 2020-04-20 Outpatient EL BETTY, MDA MDA [id number] 11:06:44 11:06:44 KARSON mckinney 2020-04-20 2020-04-20 Outpatient EL ATA BRUNO MDA MDA [id number] 11:06:17 11:06:17 [place] mckinney 2020-04-20 2020-04-20 Outpatient EL PETE, MDA MDA [id number] 11:05:51 11:05:51 SARAH mckinney 2020-04-20 2020-04-20 Outpatient EL PETE, MDA MDA [id number] 00:00:00 00:00:00 SARAH mckinney 2020-04-19 2020-04-19 Outpatient EL FAZAL, MDA MDA [id number] 08:28:22 23:59:00 BECCA [place] 2020-04-19 2020-04-19 Outpatient EL FAZAL, MDA MDA [id number] 07:34:28 08:27:00 BECCA [place] 2020-04-19 2020-04-19 Outpatient EL MDA MDA [id number] 07:30:56 07:31:01 [place] o [place]aye 2020-04-18 2020-04-18 Outpatient MDA MDA [id number] MD 16:07:58 16:07:58 [place] o faye 2020-04-18 2020-04-18 Outpatient MDA MDA [id number] MD 16:06:47 16:06:47 [place] o [place] 2020-04-18 2020-04-18 Outpatient MDA MDA [id number] MD 16:05:33 16:05:33 [place] o f[place] 2020-04-18 2020-04-18 Outpatient MDA MDA [id number] MD 16:03:48 16:03:48 [place] o f[place] 2020-04-18 2020-04-18 Outpatient MDA MDA [id number] MD 16:02:50 16:02:50 Bay mckinney 2020-04-18 2020-04-18 Outpatient MDA MDA [id number] 16:02:00 16:02:00 Bay mckinney 2020-04-16 2020-04-16 Outpatient EL MDA MDA [id number] 10:15:09 10:15:09 Bay mckinney Results This patient has no known results.
[2023-07-08] MEDS ORDERED: NA CHLORIDE 0.9% 1,000 ML ONE ×2 (10:43→17:34)
[2023-07-08 10:52] LABS: Specific Gravity 1.019 (1.005-1.030); Urine Bilirubin NEGATIVE (Negative); Urine Blood Negative (Negative); Urine Clarity Clear (Clear); Urine Color Yellow (Yellow); Urine Glucose NEGATIVE (Negative); Urine Protein NEGATIVE (Negative); Urine Urobilinogen Normal (Normal)
[2023-07-08 10:53] LABS: Hematocrit 33.7 % (36.0-45.0); Lymphocytes % 6.6 % (15.3-44.8); MCV 95.3 fL (80-100); MPV 7.7 fL (7.6-11.3); Platelets 362 thou/uL (152-406); RBC Red Blood Cell Count 3.54 M/uL (3.86-4.86)
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
[2023-07-08 11:36] LABS: Protime INR 2.19
[2023-07-08] MEDS ORDERED: NA CHLORIDE 0.9% 100 ML ONE (11:41)
[2023-07-08] MEDS ORDERED: CEFEPIME 1 GM/VIAL ONE (11:42)
--- NOTE | 2023-07-08 11:47 | RAD REPORT ---
EXAM DESCRIPTION: [place] Single View07/08/2023 10:39 am CLINICAL HISTORY: Cough COMPARISON: May 2023 FINDINGS: Partial resolution in left lung opacities. Nodular opacity mid lateral left lung either st able or diminished in size Right lung appears clear of acute infiltrate. Hyperaerated lungs Heart is normal size Refer to the CT chest report May 2023 for recommendation
[2023-07-08 11:50] LABS: ALT/SGPT 31 U/L (13-56); Albumin 1.5 g/dL (3.4-5.0); Alkaline Phosphatase 34 U/L (45-117); BUN Blood Urea Nitrogen 47 mg/dL (7-18); Bicarbonate 13 mEq/L (21-32); Bilirubin Total 0.2 mg/dL (0.2-1.0); Glomerular Filtration Rate 51 ml/min (=/>90); Glucose Level 94 mg/dL (74-106); Protein, Total 3.3 g/dL (6.4-8.2)
[2023-07-08 11:51] LABS: AST/SGOT 43 U/L (15-37); Potassium 2.2 mEq/L (3.5-5.1)
[2023-07-08 11:52] LABS: Sodium Level 157 mEq/L (136-145)
--- NOTE | 2023-07-08 12:06 | EDPHYS ---
Physician Documentation [facility] Name: Shae Schmidt Age: 83 yrs Sex: Female : 1940 Arrival Date: 07/08/2023 Time: 10:07 Bed 3 Private MD: ED Physician Juan Witt HPI: 07/08 10:14 This 83 yrs old Female presents to ER via Unassigned with complaints of Unresponsive. rn 10:14 The patient presents with decreased responsiveness. Onset: The symptoms/episode rn began/occurred at an unknown time. Possible causes: unknown. Current symptoms: In the emergency department the patient's symptoms have improved. It is unknown whether or not the patient has had similar symptoms in the past. EMS reports called to home for decreased responsiveness, last seen normal last night. History of stroke in the past. Patient was hypoxic with minimal responsiveness to pain. Patient was being bagged on oxygen upon arrival with some improvement in mental status. Patient will open eyes and follow commands.. Historical: - Allergies: 10:41 No Known Allergies; iw - Home Meds: 10:24 alendronate 70 mg Oral tablet [Active]; aspirin 81 mg Oral capsule daily [Active]; iw hydrochlorothiazide 25 mg Oral tablet [Active]; metformin 750 mg Oral Tablet 2 times per day [Active]; nifedipine 30 mg Oral tablet [Active]; letrozole 2.5 mg Oral tablet [Active]; atorvastatin oral [Active]; - PMHx: 10:13 breast cancer; Dementia; iw - PSHx: 10:13 Left Mastectomy; iw - Hospitalizations: : No recent hospitalization is reported. - History obtained from: EMS. ROS: 10:14 Unable to obtain ROS due to altered mental status, rn Exam: 10:14 Constitutional: Thin female, somnolent but awakens to pain Head/Face: Normocephalic, rn atraumatic. ENT: Very dry mucous membranes, no stridor Cardiovascular: Regular rate and rhythm. No pulse deficits. Respiratory: No increased work of breathing, no retractions or nasal flaring. Coarse bilateral breath sounds with bagging Abdomen/GI: Scaphoid abdomen, soft, nontender Skin: Warm, dry, no rash or cellulitis MS/ Extremity: Pulses equal, no cyanosis. No pain with range of motion of either extremity Neuro: Somnolent but awakens to painful stimuli. Follows some commands. Not oriented to place or time. Severe weakness throughout with some contractions of bilateral upper extremity 10:23 ECG was reviewed by the Attending Physician. rn Vital Signs: 10:13 BP 116 / 54; Pulse 79; Resp 16 S; Pulse Ox 100% on NC; iw 10:40 Temp 98.9(Ca); iw 11:13 BP 108 / 51; Pulse 78; Resp 16; Temp 99(Ca); Pulse Ox 99% ; iw 11:17 Weight 37.19 kg; cp4 12:41 BP 105 / 51; Pulse 87; Resp 18; Temp 98.1(Ca); Pulse Ox 97% on R/A; iw MDM: 10:12 Patient medically screened. rn 11:11 ED course: CT head images negative for bleeding or mass per my interpretation.. ED rn course: Patient continues to show improvement in mental status. Daughter states baseline left-sided weakness and unable to communicate since her last stroke. Daughter also reports prolonged hospitalization for COVID and just got discharged a couple weeks ago.. 12:04 Differential Diagnosis: CVA, electrolyte abnormality, hypoglycemia, intracranial bleed, rn pneumonia, sepsis, TIA, UTI, volume depletion. Data reviewed: vital signs, nurses notes, lab test result(s), radiologic studies, CT scan, plain films, and as a result, I will admit patient. Consideration of Admission/Observation Patient was admitted/placed on observation. Escalation of care including admission/observation considered. Management of patient was discussed with the following: Hospitalist: . Counseling: I had a detailed discussion with the patient and/or guardian regarding the historical points, exam findings, and any diagnostic results supporting the discharge/admit diagnosis, lab results, radiology results, the need for further work-up and treatment in the hospital. Response to treatment: the patient's symptoms have mildly improved after treatment. ED course: I personally spent 35 minutes engaged in work directly related to the individual patient's care. This does not include any time spent performing procedures. The patient has been deemed critically ill because of altered mental status and minimal responsiveness almost requiring intubation and oxygen support. Severe hypocalcemia and hyponatremia as well. Patient required constant and persistent airway monitoring. 07/08 10:13 Order name: Blood Culture Adult (2) rn 07/08 10:13 Order name: CBC with Diff; Complete Time: 11:08 rn 07/08 10:13 Order name: CMP; Complete Time: 11:53 rn 07/08 10:13 Order name: Lactate w/ 2H reflex if indic.; Complete Time: 11:14 rn 07/08 10:13 Order name: Protime (+inr); Complete Time: 11:53 rn 07/08 10:13 Order name: Ptt, Activated; Complete Time: 11:53 rn 07/08 10:13 Order name: Urinalysis w/ reflexes; Complete Time: 11:08 rn 07/08 10:13 Order name: SARS-COV-2 RT PCR; Complete Time: 12:08 rn 07/08 10:13 Order name: Flu; Complete Time: 11:53 rn 07/08 14:14 Order name: Lactate w/ 2H reflex if indic. EDMS 07/08 14:14 Order name: T4 Free; Complete Time: 16:23 EDMS 07/08 14:14 Order name: Thyroid Stimulating Hormone; Complete Time: 16:23 EDMS 07/08 14:14 Order name: Urinalysis w/ reflexes EDMS 07/08 14:14 Order name: Basic Metabolic Panel EDMS 07/08 14:14 Order name: Basic Metabolic Panel EDMS 07/08 14:14 Order name: Comprehensive Metabolic Panel EDMS 07/08 14:14 Order name: Comprehensive Metabolic Panel EDMS 07/08 14:14 Order name: Magnesium EDMS 07/08 14:14 Order name: Magnesium EDMS 07/08 14:14 Order name: Phosphorus EDMS 07/08 14:14 Order name: Phosphorus EDMS 07/08 14:16 Order name: Basic Metabolic Panel; Complete Time: 16:23 EDMS 07/08 14:16 Order name: Magnesium; Complete Time: 16:23 EDMS 07/08 14:16 Order name: Phosphorus; Complete Time: 16:23 EDMS 07/08 15:35 Order name: Lactate Sepsis 2 HR Follow-up; Complete Time: 16:23 EDMS 07/08 16:45 Order name: Creatine Phosphokinase EDMS 07/08 16:45 Order name: Troponin High Sensitivity EDMS 07/08 16:46 Order name: ABG Arterial Blood Gas EDMS 07/08 16:54 Order name: Glucose, Ancillary Testing EDMS 07/08 10:13 Order name: Chest Single View XRAY; Complete Time: 11:53 rn 07/08 10:14 Order name: CT Head Brain wo Cont; Complete Time: 11:08 rn 07/08 10:13 Order name: EKG; Complete Time: 10: rn 07/08 10:13 Order name: Accucheck; Complete Time: 10:45 rn 07/08 10:13 Order name: Cardiac monitoring; Complete Time: 10:41 rn 07/08 10:13 Order name: EKG - Nurse/Tech; Complete Time: : rn 07/08 10:13 Order name: IV Saline Lock - Large Bore; Complete Time: : rn 07/08 10:13 Order name: Labs collected and sent; Complete Time: : rn 07/08 10:13 Order name: O2 Per Protocol; Complete Time: : rn 07/08 10:13 Order name: O2 Sat Monitoring; Complete Time: rn 07/08 10:13 Order name: Vital Signs; Complete Time: :41 rn EC:23 Rate is 75 beats/min. Rhythm is regular. QRS [place] is Normal. SC interval is normal. QRS rn interval is normal. QT interval is normal. No Q waves. T waves are Inverted in leads II, III, aVF, V5, V6. No ST changes noted. Clinical impression: NSR w/ Non-specific ST/T Changes. Interpreted by me. Reviewed by me. Administered Medications: 10:58 Drug: NS 0.9% IV 1000 ml IV at 1000 ml once Route: IV; Rate: 1000 ml; Site: right cp4 antecubital; 11:35 Drug: Cefepime IVPB 1 grams IVPB at 200 ml/hr once over 30 mins; (mix in NS 100 mL) cp4 Route: IVPB; Rate: 200 ml/hr; Infused Over: 30 mins; Site: right antecubital; 12:35 Follow up: IV Status: Completed infusion iw 11:35 Drug: NS 0.9% IV (30 ml/kg) 30 ml/kg IV at bolus once; Sepsis Protocol, subtract 1st cp4 liter given Route: IV; Rate: bolus; Site: right antecubital; 12:45 Follow up: IV Status: Completed infusion iw 12:10 Drug: Potassium Chloride IV 20 mEq IV at calculated rate once; administer over 1-2 iw hours Route: IV; Rate: calculated rate; Site: right antecubital; 13:44 Drug: Calcium Gluconate IVPB 2 grams IVPB once over 60 mins; (mix in NS 100 mL) Route: iw IVPB; Infused Over: 60 mins; Site: right wrist; Disposition: 12:04 Critical Care:. rn Disposition Summary: 07/08/23 12:06 Hospitalization Ordered Notes: Hospitalization Status: Inpatient Admission rn Condition: Stable rn Problem: new rn Symptoms: have improved rn Bed/Room Type: Standard rn Provider: Marv Witt(07/08/23 12:35) rn Location: Intensive Care Unit(07/08/23 16:35) bd Room Assignment: 8-(07/08/23 16:59) iw Diagnosis - Altered mental status, unspecified rn - Muscle weakness (generalized) rn - Hypocalcemia rn - Hyperosmolality and hypernatremia rn - Hypoxemia rn - Hypotension, unspecified rn Forms: - Medication Reconciliation Form rn - SBAR form rn - Leadership Thank You Letter 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 Total rn time: 35 minutes Signatures: Dispatcher [employer] EDMS Joanna Matias Irene RN RN iw Juan Witt MD MD rn Sims, Marcus, DO DO ms3 Gabby Mcwilliams cp4 Corrections: (The following items were deleted from the chart) 10:16 10:14 Family history: not pertinent, rn rn 10:16 10:14 Hospitalizations: No recent hospitalization is reported. rn rn 12:35 12:06 Xu Cramer rn rn 13:15 12:06 Telemetry/MedSurg (Inpatient) rn ms3 13:15 12:06 rn ms3 16:35 13:15 [facility] ER HOLD ms3 bd 16:35 13:15 ERHOLD- ms3 bd 16:59 16:35 2- bd iw
--- NOTE | 2023-07-08 12:06 | ER ---
Nurse's Notes [facility] Name: Shae Schmidt Age: 83 yrs Sex: Female : 1940 Arrival Date: 07/08/2023 Time: 10:07 Bed 3 Private MD: Diagnosis: Altered mental status, unspecified;Muscle weakness (generalized);Hypocalcemia;Hyperosmolality and hypernatremia;Hypoxemia;Hypotension, unspecified Presentation: 07/08 10:22 Chief complaint: EMS states: toned out for pt unresponsive , was fine last night, iw initially 95 O2 sat, then dropped to 60's , pt arrived to ER responsive to pain, assisted ventilations via ambu bag. Coronavirus screen: Client presents with at least one sign or symptom that may indicate coronavirus-19. Ebola Screen: Patient negative for fever greater than or equal to 101.5 degrees Fahrenheit, and additional compatible Ebola Virus Disease symptoms Patient denies exposure to infectious person. Patient denies travel to an Ebola-affected area in the 21 days before illness onset. No symptoms or risks identified at this time. Risk Assessment: Do you want to hurt yourself or someone else? Patient reports no desire to harm self or others. 10:22 Method Of Arrival: EMS: [facility] iw 10:22 Acuity: ROM 1 iw 10:24 Onset of symptoms was July 08, 2023. Care prior to arrival: IV initiated. 20 GA, iw Glucose check: 259. 10:43 Initial Sepsis Screen: Does the patient meet any 2 criteria? Altered Mental Status. iw Does the patient have a suspected source of infection? No. Patient's initial sepsis screen is negative. Historical: - Allergies: 10:41 No Known Allergies; iw - Home Meds: 10:24 alendronate 70 mg Oral tablet [Active]; aspirin 81 mg Oral capsule daily [Active]; iw hydrochlorothiazide 25 mg Oral tablet [Active]; metformin 750 mg Oral Tablet 2 times per day [Active]; nifedipine 30 mg Oral tablet [Active]; letrozole 2.5 mg Oral tablet [Active]; atorvastatin oral [Active]; - PMHx: 10:13 breast cancer; Dementia; iw - PSHx: 10:13 Left Mastectomy; iw - Hospitalizations: : No recent hospitalization is reported. - History obtained from: EMS. Screenin:45 [facility] ED Fall Risk Assessment (Adult) Score/Fall Risk Level 0 - 2 = Low Risk. Abuse iw screen: Denies threats or abuse. Denies injuries from another. Nutritional screening: Difficulty chewing/swallowing? Yes. Tuberculosis screening: No symptoms or risk factors identified. Assessment: 10:22 General: Appears ill, emaciated. Pain: Unable to use pain scale. Neuro: Level of iw Consciousness is stuporous, unresponsive, Oriented to none. Cardiovascular: Capillary refill is > 3 seconds. Respiratory: Respiratory effort is shallow, weak, Respiratory pattern is hypoventilation. GI: Abdomen is non-distended. Derm: Skin is fragile, is thin, with poor turgor Skin is pale, Skin temperature is cool. 10:41 Reassessment: daughter reports pt has hx of dementia and stroke, was recently admitted iw to rehab s/p CVA where she developed COVID, pt has been home for approx 2-3 weeks , daughter believes pt may have DNR in place but will contact other family members to verify. Vital Signs: 10:13 BP 116 / 54; Pulse 79; Resp 16 S; Pulse Ox 100% on NC; iw 10:40 Temp 98.9(Ca); iw 11:13 BP 108 / 51; Pulse 78; Resp 16; Temp 99(Ca); Pulse Ox 99% ; iw 11:17 Weight 37.19 kg; cp4 12:41 BP 105 / 51; Pulse 87; Resp 18; Temp 98.1(Ca); Pulse Ox 97% on R/A; iw ED Course: 10:12 Patient arrived in ED. iw 10:12 Juan Witt MD is Attending Physician. rn 10:23 Triage completed. iw 10:41 Chest Single View XRAY In Process Unspecified. EDMS 10:43 Patient has correct armband on for positive identification. Placed in gown. Bed in low iw position. Client placed on continuous cardiac and pulse oximetry monitoring. NIBP monitoring applied. 10:45 Lizzie Villalba, RN is Primary Nurse. iw 10:54 CT Head Brain wo Cont In Process Unspecified. EDMS 10:58 Flu Sent. cp4 10:58 SARS-COV-2 RT PCR Sent. cp4 10:58 CMP Sent. cp4 10:58 Lactate w/ 2H reflex if indic. Sent. cp4 11:14 Notified ED physician of a critical lab result(s). lactate 4.0. ll1 11:35 Blood Culture Adult (2) Sent. cp4 11:35 CMP Sent. cp4 11:35 Protime (+inr) Sent. cp4 11:35 Ptt, Activated Sent. cp4 12:05 Xu Cramer MD is Hospitalizing Provider. rn 12:35 Marv Witt MD is Hospitalizing Provider. rn Administered Medications: 10:58 Drug: NS 0.9% IV 1000 ml IV at 1000 ml once Route: IV; Rate: 1000 ml; Site: right cp4 antecubital; 11:35 Drug: Cefepime IVPB 1 grams IVPB at 200 ml/hr once over 30 mins; (mix in NS 100 mL) cp4 Route: IVPB; Rate: 200 ml/hr; Infused Over: 30 mins; Site: right antecubital; 12:35 Follow up: IV Status: Completed infusion iw 11:35 Drug: NS 0.9% IV (30 ml/kg) 30 ml/kg IV at bolus once; Sepsis Protocol, subtract 1st cp4 liter given Route: IV; Rate: bolus; Site: right antecubital; 12:45 Follow up: IV Status: Completed infusion iw 12:10 Drug: Potassium Chloride IV 20 mEq IV at calculated rate once; administer over 1-2 iw hours Route: IV; Rate: calculated rate; Site: right antecubital; 13:44 Drug: Calcium Gluconate IVPB 2 grams IVPB once over 60 mins; (mix in NS 100 mL) Route: iw IVPB; Infused Over: 60 mins; Site: right wrist; Medication: 10:43 VIS not applicable for this client. iw Outcome: 12:06 Decision to Hospitalize by Provider. rn 17:53 Patient left the ED. iw Signatures: Dispatcher [employer] EDMS Lizzie Villalba RN RN iw Juan Witt MD MD rn Lewis, Lynsay, RN RN 1 Gabby Mcwilliams cp4 Corrections: (The following items were deleted from the chart) 10:16 10:14 Family history: not pertinent, rn rn 10:16 10:14 Hospitalizations: No recent hospitalization is reported. rn rn 10:29 10:13 BP 116 / 54; Pulse 79bpm; Resp 16bpm; Spontaneous; iw iw
[2023-07-08] MEDS ORDERED: KCL 20 MEQ/100 mL IVPB 100 ML IV ONE (12:15)
[2023-07-08] MEDS ORDERED: CALCIUM GLUCONATE 1 GM IVPB 1 GM/50 ML BAG IV ONE ×2 (12:28→12:29)
[2023-07-08] MEDS ORDERED: D5W 1,000 ML IV SCH (15:00)
[2023-07-08] MEDS ORDERED: ENOXAPARIN 40 MG/0.4 ML SQ SCH (15:00)
[2023-07-08 15:31] LABS: Magnesium 1.9 mg/dL (1.6-2.4); Potassium 4.8 mEq/L (3.5-5.1)
[2023-07-08 15:43] LABS: Thyroid Stimulating Hormone 1.35 uIU/mL (0.358-3.740)
[2023-07-08] MEDS ORDERED: D5W 1,000 ML IV ONE (16:16)
[2023-07-08 16:45] LABS: Troponin High Sensitivity 188.7 pg/mL (<58.9)
[2023-07-08 16:45] LABS: Arterial Blood Carboxyhemoglob 0.8 % (0-1.5); Blood Gas Oxyhemoglobin 94.8 % (94-97); Blood O2 Saturation 96.9 % (92-98.5)
--- NOTE | 2023-07-08 16:47 | EKG ---
Test Date: 2023-07-08 Test Time: 10:18:56 Backup Operator: SHANNA MEASUREMENT RESULTS: Intervals: Rate: 75 NJ: 142 QRSD: 80 QT: 422 QTc: 471 Plaza: P: 81 NJ: 142 QRS: 79 T: 163 INTERPRETIVE STATEMENTS: Sinus rhythm with premature atrial complexes T wave abnormality, consider inferolateral ischemia Prolonged QT Abnormal ECG Compared to ECG 04/29/2023 08:13:57 Atrial premature complex(es) now present T-wave abnormality now present Possible ischemia now present Prolonged QT interval now present Atrial fibrillation no longer present Left ventricular hypertrophy no longer present ST (T wave) deviation no longer present Electronically Signed On 07-08-23 16:45:59 CDT by Caio Sandoval
[2023-07-08] MEDS ORDERED: NA CHLORIDE 0.9% 1,000 ML IV SCH (17:00)
[2023-07-08 18:07] LABS: Albumin 2.8 g/dL (3.4-5.0); Bilirubin Total 0.4 mg/dL (0.2-1.0); Magnesium 1.8 mg/dL (1.6-2.4); Phosphorus 3.8 mg/dL (2.5-4.9); Potassium 4.4 mEq/L (3.5-5.1); Protein, Total 6.5 g/dL (6.4-8.2)
[2023-07-08] MEDS ORDERED: NA CHLORIDE 0.9% 1,000 ML IV ONE (18:15)
--- NOTE | 2023-07-08 18:15 | P.HP ---
Certification for Inpatient With expected LOS: >2 Midnights Patient will require the following post-hospital care: Usp Practitioner: I am a practitioner with admitting privileges, knowledge of patient current condition, hospital course, and medical plan of care. Services: Services provided to patient in accordance with Admission requirements found in Title 42 Section 412.3 of the Code of Federal Regulations Patient History Date of Service: 07/08/23 Reason for admission: unresponsive, septic dehydration History of Present Illness: Shae Moreira is a 81-year-old female with past medical history of hypertension, hyperlipidemia, recent stroke (with residual left-sided weakness unable to communicate), recent COVID-pneumonia, and diabetes type 2 presents to the ED when found unresponsive at home. Family reports EMS was called and patient was found drooling in bed and unresponsive. Last seen normal was last night 07/07. When EMS arrived patient was hypoxic with minimal responsiveness to pain. But she was bagged on oxygen upon arrival with some improvement in mental status, able to open eyes and follow some commands. Initial vital signs blood pressure 116/54, heart rate 79, respirations 16, pulse ox 100% on nasal cannula, temperature 98.9. CT head images negative for bleeding or mass per ED's interpretation. Chest echo x-ray reported with partial resolution in left lung opacities, nodular opacity mid lateral left lung either stable or diminished in size and hyperaerated lungs. WBCs 16, lactic acid 4.0, sodium 157, potassium 2.2, CO2 of 13, anion gap 8.2, BUN/ creatinine 47/1.09, CK7 198, troponin 188.7 ABG shows pH 7.37, CO2 32.3, O2 100.0, HCO3 18.2, UA negative. She is continue to test positive for COVID that she had 6 weeks ago. EKG significant for prolonged QT. While in the ED she received cefepime 1 g, calcium gluconate 2 g, potassium chloride 20 mEq, and normal saline bolus. She responded well and tolerated treatment. Of note, she was admitted to [facility] for her stroke staying 6 weeks, then went to the custodial for 4 weeks where she was positive for COVID pneumonia, now discharged from the custodial for 6 weeks. Son is POA and presented paperwork for DNR. She will be admitted for sepsis of unknown source and severe dehydration. Allergies No Known Allergies Allergy (Unverified 04/27/23 15:47) Home Medications: Alendronate Sodium [Binosto] 70 mg PO Q7D 04/27/23 Aspirin Chewable [Aspirin Chewable*] 81 mg PO DAILY 04/27/23 Atorvastatin Calcium [Lipitor] 40 mg PO BEDTIME 04/27/23 Calcium Carbonate/Vitamin D3 [Calcium 600 with Vit D Chew Tb] 600 mg PO DAILY 04/27/23 Letrozole [Femara*] 2.5 mg PO DAILY 04/27/23 Metformin HCl 500 mg PO BID 04/27/23 hydroCHLOROthiazide [Hydrochlorothiazide] 25 mg PO DAILY 04/27/23 Amlodipine [Norvasc*] 5 mg PO DAILY tab 05/10/23 Apixaban [Eliquis *] 2.5 mg PO BID #60 tablet 05/10/23 Cefdinir [Cefdinir*] 300 mg PO BID cap 05/10/23 Ensure Enlive 237 ml PO TID can 05/10/23 Folic Acid 0.4 mg PO DAILY #30 05/10/23 Losartan Potassium [Cozaar*] 50 mg PO BID 05/10/23 Metoprolol Tartrate [Lopressor*] 25 mg PO BID 6AM 6PM tab 05/10/23 - Past Medical/Surgical History Diabetic: Yes -: Hypertension -: Type II Diabetes Mellitus -: Mild Dementia -: Dyslipidemia -: Osteoporosis -: Left Breast Cancer -: Left Mastectomy (2019) -: Brain Anuerysm Clip (1994) - Social History Smoking Status: Unknown if ever smoked Alcohol use: No CD- Drugs: No Review of Systems is unable to be obtained Physical Examination - Physical Exam General: In no apparent distress, Other (awake, non verbal since stroke) HEENT: Atraumatic, Normocephalic, PERRLA Neck: Supple, 2+ carotid pulse no bruit, JVD not distended Respiratory: Clear to auscultation bilaterally, Normal air movement Cardiovascular: Normal pulses, Regular rate/rhythm, Normal S1 S2 Capillary refill: <2 Seconds Gastrointestinal: Hypoactive, Soft and benign, Non-distended Musculoskeletal: No clubbing, No swelling, No contractures Integumentary: No rashes, No breakdown Neurological: Other (nonverbal) Urinary: Izaguirre catheter - Studies Laboratory Data (last 24 hrs) 07/08/23 07/08/23 07/08/23 11:15 11:15 10:36 WBC 16.00 H Hgb 11.3 L Hct 33.7 L Plt Count 362 PT 24.1 H INR 2.19 APTT 28.6 Sodium 157 H* Potassium 2.2 L* BUN 47 H Creatinine 1.09 H Glucose 94 Total Bilirubin 0.2 AST 43 H ALT 31 Alkaline Phosphatase 34 L Microbiology Data (last 24 hrs): 07/08/23 10:40 Nasopharnyx Influenza Type A Antigen Screen - Final 07/08/23 10:40 Nasopharnyx Influenza Type B Antigen Screen - Final Assessment and Plan - Plan Assessment and Plan Sepsis of unknown source Leukocytosis lactic acidosis -WBC 16 -lacitic acid 4.0 -cefepime in ED and continue -IVF bolus in ED -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, 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 Hypocalcemia Hypokalemia -STAT redraw -K 2.2 -20 meq potassium given in ED -Ca <5.0 -Calcium gluconate 2 g given in ED -monitor closely throughout the night hypernatremia severe dehydration/fluid volume deficit -STAT redraw -Na 157 -1.5 liter deficit -IVF NS -monitor closely throughout the night Covid positive -isolation precautions Diabetes mellitus type 2 -accucheck with SSi -serum glucose Dementia -supportive care -continue home medications when appropriate DVT ppx: lovenox DNR LOS >2 day Discharge Plan: Assisted Plan to discharge in: Greater than 2 days - Advance Directives Does patient have a Living Will: Yes Does patient have a Durable POA for Healthcare: Yes
--- NOTE | 2023-07-08 18:41 | RAD REPORT ---
EXAM DESCRIPTION: CT - Abdomen Pelvis Wo Contrast - 07/08/2023 5:07 pm CLINICAL HISTORY: unresponsive, michelle, h/o pneumonia COMPARISON: Thorax W/ Con dated 05/10/2023 TECHNIQUE: Thin cut axial CT imaging of the abdomen and pelvis was performed without IV contrast. Mu ltiplanar reformats were generated and reviewed. All CT scans are performed using dose optimization technique as appropriate and may include automated exposure control or mA/KV adjustment according to patient size. FINDINGS: Motion artifact limits evaluation. Patchy left basilar airspace opacities suggestive of pneumonia. Dense calcifications at the mitral va lve. Small fat containing diaphragmatic hernia. The liver, spleen, adrenal glands, and pancreas show no suspicious findings. Gallbladder and biliary tree are also without suspicious finding. Symmetric renal contour, without suspicious parenchymal findings within limits of noncontrast techniq ue. Mild perinephric fluid, more pronounced on the left, nonspecific. No evidence of hydroureteroneph rosis. 4 millimeter focus of calcification along the lower aspect of the left renal hilum may represe nt a calculus. No dilated bowel loops. Colonic diverticulosis. Mild wall thickening along the lower rectum and anal canal with some adjacent fat stranding. Nonspecific mild wall thickening along the sigmoid colon, may relate to mild colitis or sequelae of repeated attacks of diverticulitis. . No free air, free fluid or inflammatory stranding. A lobulated up to greater hernia containing fat is incidentally noted. No suspicious mass or bulky lymphadenopathy. The urinary bladder is decompressed with Izaguirre catheter in place. Some gas locules also noted within the bladder lumen. No suspicious bony findings. Superior endplate compression deformity at T12 is stable. Mild superior endplate compression deformity at L2 is noted, probably chronic as well. IMPRESSION: Wall thickening along the lower rectum and anal canal with adjacent fat stranding sugges ting proctitis. Mild long segment wall thickening along the sigmoid colon, may relate to mild colitis or sequelae of repeated attacks of diverticulitis. Mild bilateral perinephric fluid more pronounced on the left, with no other renal parenchymal abnorma lities on noncontrast evaluation, nonspecific. Please correlate with urinalysis results to exclude on going cystitis. Nonobstructing left lower pole 4 millimeter probable renal calculus. Patchy left basilar airspace opacities suggestive of pneumonia. Other incidental findings as above.
[2023-07-08] MEDS ORDERED: NOREPINEPHRINE 4 MG in D5W 250 ML IV SCH (22:00)
[2023-07-09 04:52] LABS: MCV 94.5 fL (80-100); MPV 7.4 fL (7.6-11.3); Platelets 324 thou/uL (152-406); RBC Red Blood Cell Count 3.07 M/uL (3.86-4.86)
[2023-07-09 05:11] LABS: Albumin 2.9 g/dL (3.4-5.0); Bilirubin Total 0.4 mg/dL (0.2-1.0); Magnesium 1.8 mg/dL (1.6-2.4); Phosphorus 3.4 mg/dL (2.5-4.9); Potassium 4.2 mEq/L (3.5-5.1); Protein, Total 6.6 g/dL (6.4-8.2)
[2023-07-09 05:18] LABS: Troponin High Sensitivity 132.8 pg/mL (<58.9)
--- NOTE | 2023-07-09 08:39 | P.CNS ---
Date of Consult: 07/09/23 Reason for Consult: positive blood cultures Chief Complaint: unresponsive, septic dehydration History of Present Illness: Patient is an 81-year-old female with a past medical history of hypertension, hyperlipidemia, stroke, recent COVID-pneumonia, and diabetes melitis type II who presented to the ED after being found unresponsive at home. CT head obtained in ED " no acute intracranial abnormality is seen." Patient admitted for sepsis and dehydration. Blood cultures were drawn, preliminary results with gram- positive cocci. Infectious disease was consulted. Allergies No Known Allergies Allergy (Unverified 04/27/23 15:47) Home medications list reviewed: Yes Home Medications: Alendronate Sodium [Binosto] 70 mg PO Q7D 04/27/23 Aspirin Chewable [Aspirin Chewable*] 81 mg PO DAILY 04/27/23 Atorvastatin Calcium [Lipitor] 40 mg PO BEDTIME 04/27/23 Calcium Carbonate/Vitamin D3 [Calcium 600 with Vit D Chew Tb] 600 mg PO DAILY 04/27/23 Letrozole [Femara*] 2.5 mg PO DAILY 04/27/23 Metformin HCl 500 mg PO BID 04/27/23 hydroCHLOROthiazide [Hydrochlorothiazide] 25 mg PO DAILY 04/27/23 Amlodipine [Norvasc*] 5 mg PO DAILY tab 05/10/23 Apixaban [Eliquis *] 2.5 mg PO BID #60 tablet 05/10/23 Cefdinir [Cefdinir*] 300 mg PO BID cap 05/10/23 Ensure Enlive 237 ml PO TID can 05/10/23 Folic Acid 0.4 mg PO DAILY #30 05/10/23 Losartan Potassium [Cozaar*] 50 mg PO BID 05/10/23 Metoprolol Tartrate [Lopressor*] 25 mg PO BID 6AM 6PM tab 05/10/23 - Past Medical/Surgical History Diabetic: Yes -: Hypertension -: Type II Diabetes Mellitus -: Mild Dementia -: Dyslipidemia -: Osteoporosis -: Left Breast Cancer -: Left Mastectomy (2019) -: Brain Anuerysm Clip (1994) - Social History Alcohol use: No CD- Drugs: No Review of Systems is unable to be obtained (patient nonverbal) Physical Examination Temp Pulse Resp BP Pulse Ox 97.2 F 90 19 101/42 L 100 07/08/23 20:00 07/09/23 06:15 07/09/23 01:45 07/09/23 06:15 07/09/23 06:15 General: In no apparent distress, Cachectic, Demented HEENT: Atraumatic Neck: JVD not distended Respiratory: Clear to auscultation bilaterally, Normal air movement (on room air) Cardiovascular: No edema, Regular rate/rhythm, Abnormal pulses (weak pedal pulses) Gastrointestinal: Normal bowel sounds, Non-distended Integumentary: No rashes Neurological: Other (nonverbal) Laboratory Data - Reviewed Microbiology Data - Reviewed Imagings Data: - Reviewed Conclusions/Impression: Problem List Sepsis Gram positive Bacteremia NSTEMI Hypernatremia COVID-19 Moderate PCM Anemia Sepsis Gram-Positive Bacteremia - Blood cultures 07/08: Gram-positive cocci - Urinalysis 07/08 unremarkable - Leukocytosis (WBC 14). Afebrile - On Cefepime and Vancomycin (started 07/09) - Negative Influenza A&B - tested positive for COVID 6 weeks ago, still testing positive Recommendations - Continue Cefepime and Vancomycin for now. Awaiting final blood culture/sensitivity reports, will adjust antibiotics as appropriate. - WBC and fever trends - Repeat blood cultures - Supportive care and nutritional supplementaiton Case discussed with Bradley Fritz
[2023-07-09] MEDS ORDERED: VANCOMYCIN 1 GM in NA CHLORIDE 0.9% 250 ML IVPB ONE (09:00)
[2023-07-09] MEDS ORDERED: NOREPINEPHRINE BITARTRATE/D5W 4 MG/250 ML BAG IV SCH (09:00)
[2023-07-09] MEDS: CEFEPIME 1 GM in NA CHLORIDE 0.9% 100 ML IV SCH (09:46)
--- NOTE | 2023-07-09 13:50 | ECHO ---
HEIGHT: 5 ft 4 in WEIGHT: 85 lb 8.883 oz DATE OF STUDY: 07/09/[address]: Alma Rollins NP 2-DIMENSIONAL: YES M.MODE: YES DOPPLER: YES COLOR FLOW: YES TDS: PORTABLE: YES DEFINITY: BUBBLE STUDY: DIAGNOSIS: NON ST ELEVATION MYOCARDIAL INFARCTION CARDIAC HISTORY: CATHERIZATION: SURGERY: PROSTHETIC VALVE: PACEMAKER: MEASUREMENTS (cm) DIASTOLIC (NORMALS) SYSTOLIC (NORMALS) IVSd 1.1 (0.6-1.2) LA Diam (1.9-4.0) LVEF 60% LVIDd 2.5 (3.5-5.7) LVIDs 1.7 (2.0-3.5) %FS 30% LVPWd 1.2 (0.6-1.2) Ao Diam 2.3 (2.0-3.7) 2 DIMENSIONAL ASSESSMENT: RIGHT ATRIUM: NORMAL LEFT ATRIUM: NORMAL RIGHT VENTRICLE: NORMAL LEFT VENTRICLE: LEFT VENTRICULAR HYPERTROPHY TRICUSPID VALVE: MILD TRICUSPID REGURGITATION MITRAL VALVE: SEVERE 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 NORMAL LEFT VENTRICULAR EJECTION FRACTION 60-65% WITH NORMAL WALL MOTION 2. DIASTOLIC DYSFUNCTION 3. CALCIFIED AORTIC VALVE WITH MILD AORTIC STENOSIS 4. 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 SEVERE PULMONARY HYPERTENSION WITH RIGHT VENTRICULAR SYSTOLIC PRESSURE GREATER THAN 60 mmHg 6. MILD CONCENTRIC LEFT VENTRICULAR HYPERTROPHY 7. MILD TRICUSPID REGURGITATION TECHNOLOGIST: JESS MACEDO
--- NOTE | 2023-07-09 13:58 | P.PN ---
Subjective Date of Service: 07/09/23 Chief Complaint: unresponsive, septic dehydration Patient appears restless. Daughter states patient speaks only 1 or 2 words and he has been diagnosed with Alzheimer's related dementia. No gross agitation. Blood pressure has been improving on the Levophed drip. No recorded fever. Physical Examination - Vital Signs Temperature: 97.2 F Blood Pressure: 122/60 Pulse: 83 Respirations: 19 Pulse Ox (%): 100 - Studies Microbiology Data (last 24 hrs): 07/08/23 11:30 Blood - Blood Blood Culture Gram Stain - Final 07/08/23 11:15 Blood - Blood Blood Culture Gram Stain - Final 07/08/23 10:40 Nasopharnyx Influenza Type A Antigen Screen - Final 07/08/23 10:40 Nasopharnyx Influenza Type B Antigen Screen - Final Assessment And Plan - Plan Physical Exam General: In no apparent distress, Other (awake, non verbal since stroke) HEENT: Atraumatic, Normocephalic, PERRLA Neck: Supple, 2+ carotid pulse no bruit, JVD not distended Respiratory: Clear to auscultation bilaterally, Normal air movement Cardiovascular: Normal pulses, Regular rate/rhythm, Normal S1 S2 Capillary refill: <2 Seconds Gastrointestinal: Hypoactive, Soft and benign, Non-distended Musculoskeletal: No clubbing, No swelling, No contractures Integumentary: No rashes, No breakdown Neurological: Other (nonverbal) Urinary: Izaguirre catheter Assessment and Plan Sepsis of unknown source Leukocytosis lactic acidosis -WBC 16 -lacitic acid 4.0. Resolved with IV hydration -1 blood culture bottle is growing gram-positive cocci -IV vancomycin added. -Repeat blood cultures. 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 Secondary to fluid deficit from dehydration. -IVF NS until BP normalizes and then transition to D5 water. -Nephrology consult Covid positive -isolation precautions. -No pneumonia. -Supportive measures. Diabetes mellitus type 2 -accucheck with SSi -serum glucose Dementia -supportive care -continue home medications when appropriate. -Family is considering hospice care. DVT ppx: lovenox DNR LOS >2 day Discharge Plan: [facility] Plan to discharge in: Greater than 2 days
[2023-07-09] MEDS ORDERED: MAGNESIUM SULFATE 1 gm IVPB 1 GM/100 ML BAG IV ONE (14:00)
[2023-07-09] MEDS ORDERED: NA CHLORIDE 0.9% 1,000 ML IV ONE (14:00)
[2023-07-09] MEDS: D5W 1,000 ML IV SCH (14:16)
--- NOTE | 2023-07-09 15:07 | CON ---
Date of Consultation: 07/09/2023 Reason For Consultation: Hypernatremia, elevated BUN and creatinine, acute kidney injury. History Of Present Illness: This is a pleasant 83-year-old female. All the information has been obtained from the record as the patient has altered mental status. The patient had history of hypertension, hyperlipidemia, CVA with left- sided weakness, COVID pneumonia, diabetes complicated with neuropathy, the patient apparently found at home unresponsive, hypoxemic. For that reason, the patient was brought to the hospital, in the hospital found to have elevation in BUN and creatinine, and creatinine 1 and hypernatremia 157. For that reason, we have been consulted. The patient had low blood pressure, started on pressor. There is no documentation for any contrast exposure. Her home medications; the patient has been on metformin and alendronate with losartan. Past Medical History: Includes; 1. Hypertension. 2. Diabetes complicated with neuropathy. 3. Dementia. 4. Hyperlipidemia. 5. Osteoporosis. 6. Breast cancer. 7. Brain aneurysm. 8. COVID pneumonia. Allergies: NO KNOWN DRUGS ALLERGY. Home Medications: Include alendronate, aspirin, atorvastatin, calcium carbonate, metformin, hydrochlorothiazide, amlodipine, Eliquis, cefdinir, Ensure, losartan, metoprolol. Past Surgical History: Includes; 1. Mastectomy. 2. Brain aneurysm clips. Social History: Denied smoking, denied drinking, denied drugs abuse. Review of Systems: None obtainable. Physical Examination: Vital Signs: When I saw the patient, the patient on room air, blood pressure 122/60, pulse of 83, afebrile. Chest: Clear to auscultation. Heart: S1, S2. Systolic murmur. Abdomen: Soft, nontender. Extremity: No edema. Neurologic: Alert. Left-sided weakness. Cranial nerve intact. No tremor. Could not evaluate, moving much, evaluate her gait as the patient in bed, altered mental status. Laboratory Data: Sodium 155, potassium 4.2, bicarb 22, BUN 89, creatinine 2, GFR 24. Calcium 8.9, phosphorus 3.4, magnesium 1.8. Troponin 107. Albumin 2.9, corrected calcium 9.7. WBC 14, hemoglobin 9.3. Yesterday lab upon admission; hemoglobin 11.3, sodium 150. Current Medications: The patient on include; 1. Levophed. 2. Vancomycin. 3. Cefepime. Assessment And Plan: 1. Acute kidney injury secondary to prerenal. The patient had a total water deficit of 1.7 L, insensible loss around 400 to 700, and urine output of 800. The patient has need total of 3 L. I am going to go ahead and start today on the D5. We will run it as 150 per hour. I am going to go ahead and send for basic workup to evaluate. Obstructive uropathy has been ruled out. Mostly, the patient needs further fluid resuscitation in the acute kidney injury. Our differential is prerenal secondary to low blood pressure, superimposed with hydrochlorothiazide and losartan, superimposed with metformin. 2. Toxic ATN secondary to the sepsis. As I mentioned, we will continue on the fluid resuscitation and we will follow up. I am going to bolus the patient with 1 L of normal saline as to start. 3. Hyponatremia with total water deficit as above. We will start with D5 and we will follow up. We will repeat chemistry in 6 hours with urine electrolyte to evaluate the function and salt twisting of the kidney. Then, we will adjust. We will send for uric acid for better evaluation of the fluid status for the patient. 4. Septic shock. Continue current antibiotic. Continue supportive treatment. 5. Diabetes as by primary. 6. Hypertension with the presence of acute kidney injury and low blood pressure. Hold all blood pressure medications, especially losartan and hydrochlorothiazide. 7. Hypomagnesemia. I will supplement. Thank you, Dr. Carolina for allowing us to participate in the care of your patient. Time spent examining the patient [id number], reviewing data, lab and radiology, placing order, discussing the case with the patient, discussing the case with the steam locomotive firer/fireman including the hospitalist and nursing staff more than 65 minutes. EARLINE Voice ID: [id number] Report ID: [id number] SAM
[2023-07-09 17:01] LABS: Specific Gravity 1.013 (1.005-1.030); Urine Bacteria <20 /HPF (<20); Urine Bilirubin NEGATIVE (Negative); Urine Blood 3+ (Negative); Urine Clarity Extremely Turbid (Clear); Urine Color Light-Yellow (Yellow); Urine Crystals Unidentified Few /HPF (None Seen); Urine Glucose TRACE (Negative); Urine Mucus Slight /HPF (None Seen); Urine Protein TRACE (Negative); Urine RBC >50 /HPF (None Seen); Urine Urobilinogen Normal (Normal)
[2023-07-09] MEDS ORDERED: ZIPRASIDONE MESYLA 20 MG/VIAL IM ONE (19:47)
[2023-07-09] MEDS ORDERED: WATER FOR INJ,STERILE 10 ML IM PRN (19:47)
[2023-07-09] MEDS: KCL 20 MEQ/100 mL IVPB 20 MEQ/100 ML BAG IV SCH (23:12)
[2023-07-10] MEDS: KCL 20 MEQ/100 mL IVPB 20 MEQ/100 ML BAG IV SCH (00:46)
[2023-07-10] MEDS: D5W 1,000 ML IV SCH ×4 (00:51→20:35)
[2023-07-10 04:46] LABS: Absolute Lymphocytes (CBC) 0.8 K/uL (0.7-4.9); Hematocrit 25.3 % (36.0-45.0); Lymphocytes % 11.5 % (15.3-44.8); MCV 93.6 fL (80-100); MPV 7.4 fL (7.6-11.3); Platelets 268 thou/uL (152-406)
[2023-07-10 05:25] LABS: Albumin 2.6 g/dL (3.4-5.0); Magnesium 1.9 mg/dL (1.6-2.4); Potassium 3.9 mEq/L (3.5-5.1); Thyroid Stimulating Hormone 1.05 uIU/mL (0.358-3.740); Uric Acid 5.8 mg/dL (2.6-6.0)
[2023-07-10 05:31] LABS: Phosphorus 0.7 mg/dL (2.5-4.9)
[2023-07-10] MEDS ORDERED: POTASSIUM PHOS 30 MM in NA CHLORIDE 0.9% 500 ML IV ONE (06:46)
[2023-07-10] MEDS: CEFEPIME 1 GM in NA CHLORIDE 0.9% 100 ML IV SCH ×2 (08:08→20:36)
--- NOTE | 2023-07-10 09:09 | P.PN ---
Date of Service: 07/10/23 Chief Complaint: unresponsive, septic dehydration Subjective: Patient seen and examined at bedside. Family members in room. Patient is not in apparent distress, breathing comfortably on room air at this time. Review of Systems is unable to be obtained (patient nonverbal) Physical Examination Temp Pulse Resp BP Pulse Ox 97.2 F 70 16 99/52 L 100 07/10/23 04:00 07/10/23 06:00 07/10/23 06:00 07/10/23 06:00 07/10/23 05:00 General: In no apparent distress, Cachectic. Nonverbal. HEENT: Atraumatic. mucous membranes dry. Neck: JVD not distended Respiratory: slightly diminished. Normal air movement. Unlabored respirations. On room air. Cardiovascular: No edema, Regular rate/rhythm. Weak pedal pulses Gastrointestinal: Normal bowel sounds, Non-distended Integumentary: No rashes. Skin tears scattered bilateral upper extremities. Neurological: Hx CVA, nonverbal. Laboratory Data - Reviewed Microbiology Data - Reviewed Imagings Data: - Reviewed Medications List - Reviewed Assessment and Plan Problem List Sepsis Gram positive Bacteremia NSTEMI Hypernatremia COVID-19 Moderate PCM Anemia Sepsis Gram-Positive Bacteremia - Blood cultures 07/08: Gram-positive cocci in 3 of 4 bottles - Repeat blood culture 07/09: Pending - Urinalysis 07/09: extremly turbid; LE 75; RBC >50; WBC 10-20; hyaline casts 5- 10; trace protein - urine culture 07/09: Pending - Leukocytosis resolved (WBC 14 ->7.2). Afebrile - On Cefepime and Vancomycin (started 07/09) - Negative Influenza A&B - tested positive for COVID 6 weeks ago, still testing positive Recommendations - Continue Cefepime and Vancomycin for now. Awaiting final blood culture/sensitivity reports, will adjust antibiotics as appropriate. - Follow up with urine culture results - Monitor WBC and fever trends - Repeat blood cultures - Supportive care and nutritional supplementation Case discussed with Bradley Fritz
[2023-07-10] MEDS: VANCOMYCIN 750 MG in NA CHLORIDE 0.9% 150 ML IVPB SCH (09:29)
[2023-07-10] MEDS ORDERED: CEFEPIME 2 GM in NA CHLORIDE 0.9% 100 ML IV SCH (11:00)
--- NOTE | 2023-07-10 11:41 | P.CNS ---
Date of Consult: 07/10/23 Reason for Consult: Septic shock Chief Complaint: unresponsive, septic dehydration History of Present Illness: Patient is 83 years of age was found unresponsive hypotensive has a history of COVID also hyponatremia with a history of stroke with left-sided paresis currently she is alert minimally responsive eating a pured diet was on vasopressors blood cultures positive Allergies No Known Allergies Allergy (Unverified 04/27/23 15:47) Home Medications: Alendronate Sodium [Binosto] 70 mg PO Q7D 04/27/23 Aspirin Chewable [Aspirin Chewable*] 81 mg PO DAILY 04/27/23 Atorvastatin Calcium [Lipitor] 40 mg PO BEDTIME 04/27/23 Calcium Carbonate/Vitamin D3 [Calcium 600 with Vit D Chew Tb] 600 mg PO DAILY 04/27/23 Letrozole [Femara*] 2.5 mg PO DAILY 04/27/23 Metformin HCl 500 mg PO BID 04/27/23 hydroCHLOROthiazide [Hydrochlorothiazide] 25 mg PO DAILY 04/27/23 Amlodipine [Norvasc*] 5 mg PO DAILY tab 05/10/23 Apixaban [Eliquis *] 2.5 mg PO BID #60 tablet 05/10/23 Cefdinir [Cefdinir*] 300 mg PO BID cap 05/10/23 Ensure Enlive 237 ml PO TID can 05/10/23 Folic Acid 0.4 mg PO DAILY #30 05/10/23 Losartan Potassium [Cozaar*] 50 mg PO BID 05/10/23 Metoprolol Tartrate [Lopressor*] 25 mg PO BID 6AM 6PM tab 05/10/23 - Past Medical/Surgical History Diabetic: Yes -: Hypertension -: Type II Diabetes Mellitus -: Mild Dementia -: Dyslipidemia -: Osteoporosis -: Left Breast Cancer -: Left Mastectomy (2019) -: Brain Anuerysm Clip (1994) - Social History Alcohol use: No CD- Drugs: No Review of Systems is unable to be obtained Physical Examination Temp Pulse Resp BP Pulse Ox 98.6 F 87 16 79/44 L 100 07/10/23 08:00 07/10/23 10:00 07/10/23 06:00 07/10/23 10:00 07/10/23 05:00 General: Alert, Unresponsive Respiratory: Clear to auscultation bilaterally Cardiovascular: No edema, Irregular heart rate/rhythm Gastrointestinal: Normal bowel sounds, Soft and benign - Problems (1) Septic shock Current Visit: Yes Status: Acute Plan: Patient is 83 years of age admitted with septic shock recent history of COVID history of stroke hyponatremia seems to be improving White count is now normal patient is on cefepime vancomycin blood cultures pending positive for gram- positive cocci patient is also mildly anemic has A-fib off vasopressors now have added some thiamine resume Eliquis rate is under control serum cortisol level
--- NOTE | 2023-07-10 12:24 | P.PN ---
Subjective Date of Service: 07/10/23 Chief Complaint: unresponsive, septic dehydration Patient is more calm and responsive today. She opens her eyes to verbal. Blood pressure has improved. Patient has been off Levophed drip since yesterday morning. No recorded fever. Physical Examination - Vital Signs Temperature: 98.6 F Blood Pressure: 79/44 Pulse: 87 Respirations: 16 Pulse Ox (%): 100 - Studies Microbiology Data (last 24 hrs): 07/08/23 11:15 Blood - Blood Blood Culture Gram Stain - Final 07/08/23 11:30 Blood - Blood Blood Culture Gram Stain - Final Assessment And Plan - Plan Physical Exam General: In no apparent distress, awake, non verbal. Neck: Supple, JVD not distended Respiratory: Clear to auscultation bilaterally, Normal air movement Cardiovascular: Normal pulses, Regular rate/rhythm, Normal S1 S2 Gastrointestinal: Normal bowel sounds, soft and benign, Non-distended Musculoskeletal: No clubbing, No swelling, No contractures Integumentary: No rashes, No breakdown Neurological: Nonverbal, she moves all extremities. Urinary: Izaguirre catheter Assessment and Plan Sepsis of unknown source Leukocytosis lactic acidosis Septic shock -WBC 16 -lacitic acid 4.0. Resolved with IV hydration -1 blood culture bottle is growing coagulase positive staph -Continue IV vancomycin and cefepime. -Repeat blood culture result is pending. -Levophed drip weaned off. 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 -On D5 water per nephrology. Covid positive -isolation precautions. -No pneumonia. -Supportive measures. Diabetes mellitus type 2 -accucheck with SSi -serum glucose Dementia -supportive care -continue home medications when appropriate. -Speech therapy consult DVT ppx: lovenox DNR Discharge Plan: [facility]
[2023-07-10] MEDS: THIAMINE 200 MG/2 ML INJ IVP SCH ×2 (16:05→20:36)
--- NOTE | 2023-07-10 18:22 | PN ---
Date of Progress Note: 07/10/2023 Subjective: The patient was admitted with altered mental status, confusion. The patient had severe hypernatremia with acute kidney injury. Yesterday, we started the patient on aggressive hydration. Sodium started trending down. The patient more awake, but still confused. Physical Examination: Vital Signs: Blood pressure 107/41, pulse of 77, afebrile. The patient had good urine output of 800. Chest: Clear to auscultation. Heart: S1, S2. Regular. Abdomen: Soft, nontender. Extremities: No edema or defomity Neuro: Open eyes spontaneously. Confused and hemiplegia on the left side. Laboratory Data: The patient's hemoglobin 8.6, sodium 146, potassium 3.9, bicarb 23, BUN 46, creatinine 1, GFR of 56, calcium 8.1, phosphorus 0.7, magnesium 1.9, albumin 2.6. Current Medications: The patient on include: 1. Cefepime. 2. Vancomycin. 3. Eliquis. 4. IV fluid at 150. Assessment And Plan: 1. Acute kidney injury secondary to prerenal recover looked to me _back to normal volume. I am going to go ahead and decrease IV fluid. 2. Hypernatremia secondary to depletional appropriate correction. I am going to go ahead and decrease IV fluid to 75. 3. Hypomagnesemia. We will supplement. 4. Hypophosphatemia. We will supplement and we will follow up. 5. Altered mental status, mostly metabolic secondary to infection. We will follow up with primary. Time spent examining the patient [id number], reviewing data, lab, and radiology, placing order, discussing the case with the patient, discussing the case with the steam plant operator including ICU staff and hospitalist more than 35 minutes. EARLINE Voice ID: [id number] Report ID: [id number] SAM
[2023-07-10] MEDS: APIXABAN 2.5 MG TABLET PO SCH (20:36)
[2023-07-10] MEDS: GLUCERNA SHAKE 237 ML CAN PO SCH (20:44)
[2023-07-11 03:51] LABS: UR PROTEIN 49.5 mg/dL (<11.9); Urine Protein/Creatinine Ratio 1.3 ratio (<0.15)
[2023-07-11 05:19] LABS: Albumin 2.5 g/dL (3.4-5.0); Magnesium 1.4 mg/dL (1.6-2.4); Potassium 4.2 mEq/L (3.5-5.1)
[2023-07-11] MEDS ORDERED: Magnesium Sulfate 2gm IVPB 2 G/50 ML BAG IV ONE (05:36)
[2023-07-11] MEDS ORDERED: POTASSIUM PHOS IN 0.9 % NACL 15 MMOL/250 ML BAG IV ONE (05:37)
--- NOTE | 2023-07-11 08:03 | P.PN ---
Date of Service: 07/11/23 Chief Complaint: unresponsive, septic dehydration Subjective: Patient seen and examined in ICU. In no apparent distress, breathing comfortably on room air. Review of Systems is unable to be obtained (aphasic). No acute events reported overnight. Patient restless. Physical Examination Temp Pulse Resp BP Pulse Ox 97.5 F 95 H 18 109/54 L 91 07/11/23 04:00 07/11/23 06:00 07/11/23 06:00 07/11/23 06:00 07/11/23 06:00 General: In no apparent distress, Cachectic. aphasic. HEENT: Atraumatic. mucous membranes dry. Neck: JVD not distended Respiratory: slightly diminished. Normal air movement. Unlabored respirations. On room air. Cardiovascular: No edema, Regular rate/rhythm. Weak pedal pulses Gastrointestinal: Normal bowel sounds, Non-distended Integumentary: No rashes. Skin tears scattered bilateral upper extremities. Neurological: Hx CVA, nonverbal. Studies Laboratory Data - Reviewed Microbiology Data - Reviewed Imagings Data: - Reviewed Medications List - Reviewed Assessment and Plan Problem List Sepsis MSSA Bacteremia NSTEMI Hypernatremia, resolved COVID-19 Severe PCM Anemia Sepsis MSSA Bacteremia - Blood cultures 07/08: Staphylococcus aureus (MSSA) - Repeat blood culture 07/09: Pending - Urinalysis 07/09: extremly turbid; LE 75; RBC >50; WBC 10-20; hyaline casts 5- 10; trace protein - urine culture 07/09: no growth to date - Leukocytosis resolved (WBC 14 ->7.2). Afebrile - On Cefepime and Vancomycin (started 07/09) - Negative Influenza A&B - tested positive for COVID 6 weeks ago, still testing positive Recommendations - blood cultures resulting with MSSA. Start on Cefazolin IV. Discontinue Cefepime and Vancomycin. - follow up with Repeat blood cultures - Obtain echo - Monitor WBC and fever trends - Continue supportive care and nutritional supplementation Case discussed with Bradley Fritz
[2023-07-11] MEDS ORDERED: VANCOMYCIN 750 MG in NA CHLORIDE 0.9% 150 ML IVPB SCH (09:00)
[2023-07-11] MEDS: THIAMINE 200 MG/2 ML INJ IVP SCH ×2 (09:40→21:56)
[2023-07-11] MEDS: CEFEPIME 1 GM in NA CHLORIDE 0.9% 100 ML IV SCH (09:40)
[2023-07-11] MEDS: D5W 1,000 ML IV SCH (09:40)
[2023-07-11] MEDS: GLUCERNA SHAKE 237 ML CAN PO SCH ×3 (09:41→21:57)
[2023-07-11] MEDS: APIXABAN 2.5 MG TABLET PO SCH ×2 (09:47→21:56)
[2023-07-11] MEDS: VANCOMYCIN 750 MG in NA CHLORIDE 0.9% 150 ML IVPB SCH (10:03)
--- NOTE | 2023-07-11 12:14 | P.PN ---
Subjective Date of Service: 07/11/23 Chief Complaint: unresponsive, septic dehydration Patient is doing much better today. She is awake and responsive. Nursing staff report patient finished 75% of her breakfast. Blood pressure has been stable since the Levophed drip was weaned off. No recorded fever. Physical Examination - Vital Signs Temperature: 97.8 F Blood Pressure: 118/68 Pulse: 93 Respirations: 21 Pulse Ox (%): 100 - Studies Microbiology Data (last 24 hrs): 07/08/23 11:15 Blood - Blood Blood Culture Gram Stain - Final 07/08/23 11:30 Blood - Blood Blood Culture Gram Stain - Final Assessment And Plan - Plan Physical Exam General: In no apparent distress, awake. Neck: Supple, JVD not distended Respiratory: Clear to auscultation bilaterally, Normal air movement Cardiovascular: Normal pulses, Regular rate/rhythm, Normal S1 S2 Gastrointestinal: Normal bowel sounds, soft and benign, Non-distended Musculoskeletal: No clubbing, No swelling, No contractures Integumentary: No rashes, No breakdown Neurological: Nonverbal, she moves all extremities. Left-sided spasticity. Urinary: Izaguirre catheter Assessment and Plan Sepsis of unknown source Leukocytosis lactic acidosis Septic shock Leukocytosis resolved -lacitic acidosis resolved with IV hydration -1 blood culture bottle grew MSSA. -On IV vancomycin and cefepime. -Repeat blood culture shows no growth. -Levophed drip weaned off. -continue IVF. -Patient is tolerating diet. -Transferred to the medical floor. Hypocalcemia Hypokalemia Hypophosphatemia -Continue to replace electrolytes IV as needed -Calcium gluconate IV replacement as needed for hypocalcemia hypernatremia severe dehydration/fluid volume deficit -secondary to fluid deficit from dehydration -Hyponatremia resolved. Discontinue D5 water -Nephrology is following. Covid positive -isolation precautions. -No pneumonia. -Supportive measures. Diabetes mellitus type 2 -accucheck with SSi -serum glucose Dementia -supportive care -continue home medications when appropriate. -Diet as tolerated. -Recommend to increase her fluid intake. -Dietitian consult. DVT ppx: lovenox DNR Discharge Plan: Anticipating home with home.
[2023-07-11] MEDS: CEFAZOLIN SODIUM 2 GM in NA CHLORIDE 0.9% 50 ML IVPB SCH (16:05)
--- NOTE | 2023-07-11 17:56 | PN ---
Date of Progress Note: 07/11/2023 Subjective: Patient was admitted with severe hypernatremia, dehydration, and electrolyte imbalance w ith acute kidney injury. Patient after hydration, kidney function has been improved. Hypernatremia, sodium is trending down appropriately. Patient is more awake. Physical Examination: Vital Signs: Blood pressure 124/68, pulse of 93, afebrile. Chest: Clear to auscultation. Heart: S1, S2. Regular. Abdomen: Soft, nontender. Extremities: No edema. Neuro: Had hemiparesis with contraction on the left side. Laboratory Data: Hemoglobin 8.6. Sodium 142, potassium 4.2, bicarb 23, BUN 28, creatinine 0.7, calc ium 7.6. Phosphorus 2, magnesium 1.4. Current Medications: The patient is on include: Magnesium sulfate, Eliquis, KCl. Assessment And Plan: 1.Acute kidney injury secondary to prerenal, recovered, resolved. 2.Hypernatremia secondary to depletional, recovered. Continue gentle hydration. 3.Hypomagnesemia, hypophosphatemia and hypokalemia. We will supplement. EARLINE Voice ID: [id number] Report ID: [id number]
[2023-07-12] MEDS: CEFAZOLIN SODIUM 2 GM in NA CHLORIDE 0.9% 50 ML IVPB SCH ×3 (02:28→16:15)
[2023-07-12 03:17] LABS: Absolute Lymphocytes (CBC) 1.7 K/uL (0.7-4.9); Hematocrit 24.6 % (36.0-45.0); Lymphocytes % 24.3 % (15.3-44.8); MCV 92.1 fL (80-100); MPV 7.7 fL (7.6-11.3); Platelets 240 thou/uL (152-406); RBC Red Blood Cell Count 2.67 M/uL (3.86-4.86)
[2023-07-12 03:44] LABS: Albumin 2.5 g/dL (3.4-5.0); Phosphorus 2.1 mg/dL (2.5-4.9)
[2023-07-12 03:47] LABS: Magnesium 1.8 mg/dL (1.6-2.4); Potassium 4.8 mEq/L (3.5-5.1)
--- NOTE | 2023-07-12 08:54 | P.PN ---
Date of Service: 07/12/23 Chief Complaint: unresponsive, septic dehydration Subjective: Improving. Patient seen and examined at bedside. ROS unable to obtain as patient is aphasic. She appears to be in no apparent distress, slightly restless, breathing comfortably on room air. No acute events reported overnight. Physical Examination Temp Pulse Resp BP Pulse Ox 97.0 F 93 H 18 132/56 L 96 07/12/23 11:03 07/12/23 11:03 07/12/23 11:03 07/12/23 11:03 07/12/23 11:03 General: In no apparent distress, Cachectic. aphasic. HEENT: Atraumatic. mucous membranes dry. Neck: JVD not distended Respiratory: slightly diminished. Normal air movement. Unlabored respirations. On room air. Cardiovascular: No edema, Regular rate/rhythm. Weak pedal pulses Gastrointestinal: Normal bowel sounds, Non-distended Integumentary: No rashes. Skin tears scattered bilateral upper extremities. Neurological: Hx CVA, nonverbal. Studies Laboratory Data - Reviewed Microbiology Data - Reviewed Imagings Data: - Echocardiogram 07/09: "1. NORMAL LEFT VENTRICULAR EJECTION FRACTION 60-65% WITH NORMAL WALL MOTION 2. DIASTOLIC DYSFUNCTION 3. CALCIFIED AORTIC VALVE WITH MILD AORTIC STENOSIS 4. 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 SEVERE PULMONARY HYPERTENSION WITH RIGHT VENTRICULAR SYSTOLIC PRESSURE GREATER THAN 60 mmHg 6. MILD CONCENTRIC LEFT VENTRICULAR HYPERTROPHY 7. MILD TRICUSPID REGURGITATION" Medications List - Reviewed Assessment and Plan Problem List Sepsis MSSA Bacteremia NSTEMI Hypernatremia, resolved COVID-19 Severe PCM Anemia Sepsis MSSA Bacteremia - Blood cultures 07/08: Staphylococcus aureus (MSSA) - Repeat blood culture 07/09: Pending - Urinalysis 07/09: extremly turbid; LE 75; RBC >50; WBC 10-20; hyaline casts 5- 10; trace protein - urine culture 07/09: no growth to date - Previously on Cefepime and Vancomycin (07/09-07/11). Switched to Cefazolin IV on 07/11 following blood culture results. - Leukocytosis resolved. Afebrile. - Repeat blood cultures 07/09: No growth to date - Echocardiogram 07/09: no clear vegetation Covid-19 - Positive covid on 07/08. - Family reports patient tested positive for COVID in May. - Negative Influenza A&B Recommendations - MSSA Bacteremia: Continue antibiotic therapy for 2 weeks (07/09-07/23). On Cefazolin IV - Monitor WBC and fever trends - Continue supportive care and nutritional supplementation - pressure offloading measures - fall precautions Case discussed with Bradley Fritz
[2023-07-12] MEDS ORDERED: MAGNESIUM SULFATE 1 gm IVPB 1 GM/100 ML BAG IV ONE (09:00)
[2023-07-12] MEDS: THIAMINE 200 MG/2 ML INJ IVP SCH ×2 (09:24→20:31)
[2023-07-12] MEDS: APIXABAN 2.5 MG TABLET PO SCH ×2 (09:24→20:31)
[2023-07-12] MEDS: POTASS/SODIUM PHOSPHATE 1 PKT POWD.PACK PO SCH (09:24)
[2023-07-12] MEDS: GLUCERNA SHAKE 237 ML CAN PO SCH ×3 (09:25→20:31)
--- NOTE | 2023-07-12 15:28 | P.PN ---
Subjective Date of Service: 07/12/23 Chief Complaint: unresponsive, septic dehydration Patient is more interactive today. She is awake and responsive. She is tolerating her diet. No issues overnight. No recorded fever. Physical Examination - Vital Signs Temperature: 97.0 F Blood Pressure: 132/56 Pulse: 93 Respirations: 18 Pulse Ox (%): 96 - Studies Microbiology Data (last 24 hrs): 07/08/23 11:30 Blood - Blood Blood Culture Gram Stain - Final 07/08/23 11:15 Blood - Blood Blood Culture Gram Stain - Final Assessment And Plan - Plan Physical Exam General: In no apparent distress, awake. Respiratory: Clear to auscultation bilaterally, Normal air movement Cardiovascular: Normal pulses, Regular rate/rhythm, Normal S1 S2 Gastrointestinal: Normal bowel sounds, soft and benign, Non-distended Musculoskeletal: No clubbing, No swelling, No contractures Integumentary: No rashes, No breakdown Neurological: Nonverbal, she moves all extremities. Left-sided spasticity. Urinary: Izaguirre catheter Assessment and Plan Sepsis of unknown source Leukocytosis lactic acidosis Septic shock Leukocytosis resolved -lacitic acidosis resolved with IV hydration -1 blood culture bottle grew MSSA. -Repeat blood culture shows no growth. -Urine culture shows no growth -Antibiotics changed to cefazolin -Levophed drip weaned off. -Patient is tolerating diet. Hypocalcemia Hypokalemia Hypophosphatemia -Continue to replace electrolytes IV as needed hypernatremia severe dehydration/fluid volume deficit -secondary to fluid deficit from dehydration -Hyponatremia resolved. Discontinue D5 water -Nephrology is following. -Monitor BMP off IV fluid. Covid positive -isolation precautions. -No pneumonia. -Supportive measures. Diabetes mellitus type 2 -accucheck with SSi -serum glucose Dementia -supportive care -continue home medications when appropriate. -Diet as tolerated. -Recommend to increase her fluid intake. -Dietitian consult. DVT ppx: lovenox DNR
--- NOTE | 2023-07-12 15:31 | P.PN ---
Subjective Date of Service: 07/12/23 Chief Complaint: unresponsive, septic dehydration Subjective: No new changes Physical Examination - Vital Signs Temperature: 97.0 F Blood Pressure: 132/56 Pulse: 93 Respirations: 18 Pulse Ox (%): 96 - Physical Exam General: Other (chronically ill-appearing) HEENT: Atraumatic, Normocephalic Neck: Supple Respiratory: Other (symmetric chest expansion) Cardiovascular: No rubs, No murmurs Gastrointestinal: Soft and benign, No rebound Musculoskeletal: No clubbing Integumentary: No warmth Neurological: Normal tone Urinary: Other (no bladder distention) External genitalia: Deferred Rectal: Deferred - Studies Microbiology Data (last 24 hrs): 07/08/23 11:30 Blood - Blood Blood Culture Gram Stain - Final 07/08/23 11:15 Blood - Blood Blood Culture Gram Stain - Final Assessment And Plan - Plan 1. Acute kidney injury secondary to prerenal. Resolved. Monitor renal panel. 2. Hypernatremia. Resolved. 3. Hypomagnesemia, hypophosphatemia and hypokalemia. Replete prn. 4. Sepsis/MSSA bacteremia. Abx per ID service.
[2023-07-13] MEDS: CEFAZOLIN SODIUM 2 GM in NA CHLORIDE 0.9% 50 ML IVPB SCH ×3 (00:41→16:28)
[2023-07-13 04:22] LABS: Albumin 2.6 g/dL (3.4-5.0); Magnesium 1.9 mg/dL (1.6-2.4); Phosphorus 2.5 mg/dL (2.5-4.9); Potassium 4.3 mEq/L (3.5-5.1)
[2023-07-13] MEDS: POTASS/SODIUM PHOSPHATE 1 PKT POWD.PACK PO SCH ×2 (08:21→08:22)
[2023-07-13] MEDS: THIAMINE 200 MG/2 ML INJ IVP SCH ×2 (08:21→21:29)
[2023-07-13] MEDS: APIXABAN 2.5 MG TABLET PO SCH ×2 (08:21→21:29)
[2023-07-13] MEDS: GLUCERNA SHAKE 237 ML CAN PO SCH ×3 (08:22→21:29)
--- NOTE | 2023-07-13 10:24 | PN ---
Date of Progress Note: 07/13/2023 Subjective: The patient was admitted to the hospital with acute kidney injury with electrolyte imbal ance and malnourished picture with hypernatremia. Patient was started on IV hydration. Patient back to baseline. Kidney function has been improved. Physical Examination: Vital Signs: Blood pressure 132/56, pulse of 93, afebrile. Chest: Clear to auscultation. Heart: S1, S2. Systolic murmur. Abdomen: Soft, nontender. Extremities: Extremity contraction. Neuro: Hemiplegia. Laboratory Data: Hemoglobin 8.5. Sodium 141, potassium 4.3, bicarb 27, BUN 16, creatinine 0.5, calc ium 8.3, phosphorus 2.5, magnesium 1.9, albumin 2.6, corrected calcium is 9.5. Current Medications: The patient on include: 1.Cefazolin. 2.Eliquis. 3.Potassium phosphate. Assessment And Plan: 1.Acute kidney injury secondary to prerenal, recovered, resolved. 2.Hypernatremia, depletional. Sodium trending now appropriately. We will follow up. Continue hydr ation. 3.Hypomagnesemia. We will supplement. 4.Hypophosphatemia. Continue to supplement. STEPHEN/QUINTEN Voice ID: [id number] Report ID: [id number]
--- NOTE | 2023-07-13 15:55 | P.PN ---
Subjective Date of Service: 07/13/23 Chief Complaint: unresponsive, septic dehydration Patient has been more interactive and tolerating her diet. No issues overnight. No agitation reported. Physical Examination - Vital Signs Temperature: 97.7 F Blood Pressure: 121/60 Pulse: 89 Respirations: 16 Pulse Ox (%): 96 - Studies Microbiology Data (last 24 hrs): 07/08/23 11:15 Blood - Blood Blood Culture Gram Stain - Final 07/08/23 11:15 Blood - Blood Anaerobic Blood Culture - Final No growth in 5 days. 07/08/23 11:30 Blood - Blood Blood Culture Gram Stain - Final Assessment And Plan - Plan Physical Exam General: In no apparent distress, awake. Respiratory: Clear to auscultation bilaterally, Normal air movement Cardiovascular: Normal pulses, Regular rate/rhythm, Normal S1 S2 Gastrointestinal: Normal bowel sounds, soft and benign, Non-distended Musculoskeletal: No clubbing, No swelling, No contractures Neurological: Nonverbal, she moves all extremities. Left-sided spasticity. Urinary: Izaguirre catheter Assessment and Plan Sepsis of unknown source Leukocytosis lactic acidosis Septic shock Leukocytosis resolved -lacitic acidosis resolved with IV hydration -1 blood culture bottle grew MSSA and staph capitis. -Repeat blood culture shows no growth. -Urine culture shows no growth -Continue cefazolin -Levophed drip weaned off. -Patient is tolerating diet. Hypocalcemia Hypokalemia Hypophosphatemia -Continue to replace electrolytes IV as needed hypernatremia severe dehydration/fluid volume deficit -secondary to fluid deficit from dehydration -Hyponatremia resolved. IV D5 water discontinued. -Nephrology is following. -Sodium level has been stable since stopping IV fluid. Covid positive -isolation precautions. -No pneumonia. -Supportive measures. Diabetes mellitus type 2 -accucheck with SSi -serum glucose Dementia -supportive care -continue home medications when appropriate. -Diet as tolerated. -Recommend to increase her fluid intake as tolerated. DVT ppx: lovenox DNR
[2023-07-14] MEDS: CEFAZOLIN SODIUM 2 GM in NA CHLORIDE 0.9% 50 ML IVPB SCH ×3 (00:22→16:18)
[2023-07-14 04:39] LABS: Albumin 2.6 g/dL (3.4-5.0); Magnesium 1.8 mg/dL (1.6-2.4); Phosphorus 2.5 mg/dL (2.5-4.9); Potassium 4.1 mEq/L (3.5-5.1)
[2023-07-14 05:48] VITALS: BMI 17.5
[2023-07-14] MEDS: THIAMINE 200 MG/2 ML INJ IVP SCH ×2 (08:35→22:16)
[2023-07-14] MEDS: APIXABAN 2.5 MG TABLET PO SCH ×2 (08:35→22:16)
[2023-07-14] MEDS: GLUCERNA SHAKE 237 ML CAN PO SCH ×3 (08:35→20:31)
[2023-07-14] MEDS: D5W 1,000 ML IV SCH (14:28)
--- NOTE | 2023-07-14 14:38 | P.PN ---
Subjective Date of Service: 07/14/23 Chief Complaint: unresponsive, septic dehydration No changes from yesterday. Patient's daughter is concerned patient has pain in the left knee. Her knee is in hyperacute flexion and she winces with attempted extension of the knee. No agitation reported. Physical Examination - Vital Signs Temperature: 97.4 F Blood Pressure: 118/45 Pulse: 94 Respirations: 18 Pulse Ox (%): 98 - Studies Microbiology Data (last 24 hrs): 07/08/23 11:30 Blood - Blood Aerobic Blood Culture - Final Staph Capitis Staphylococcus Hominis 07/08/23 11:30 Blood - Blood Blood Culture Gram Stain - Final 07/08/23 11:30 Blood - Blood Anaerobic Blood Culture - Final Staphylococcus Capitis Staphylococcus Hominis 07/08/23 11:30 Blood - Blood Gram Stain - Final 07/08/23 11:15 Blood - Blood Aerobic Blood Culture - Final Staph Aureus 07/08/23 11:15 Blood - Blood Blood Culture Gram Stain - Final 07/08/23 11:15 Blood - Blood Anaerobic Blood Culture - Final No growth in 5 days. Assessment And Plan - Plan Physical Exam General: In no apparent distress, awake. Respiratory: Clear to auscultation bilaterally, Normal air movement Cardiovascular: Normal pulses, Regular rate/rhythm, Normal S1 S2 Gastrointestinal: Normal bowel sounds, soft and benign, Non-distended Musculoskeletal: No clubbing, No swelling, No contractures Neurological: Nonverbal, she moves all extremities. Left-sided spasticity. Left knee in flexed position. Urinary: Izaguirre catheter Assessment and Plan Sepsis of unknown source Leukocytosis lactic acidosis Septic shock Leukocytosis resolved -lacitic acidosis resolved with IV hydration -1 blood culture bottle grew MSSA and staph capitis. -Repeat blood culture shows no growth. -Urine culture shows no growth -Continue cefazolin -Levophed drip weaned off. -Patient is tolerating diet. Hypocalcemia Hypokalemia Hypophosphatemia -Continue to replace electrolytes IV as needed hypernatremia severe dehydration/fluid volume deficit -secondary to fluid deficit from dehydration -Hyponatremia resolved. IV D5 water discontinued. -Nephrology is following. -Sodium level has been stable since stopping IV fluid. -Diet as tolerated. Covid positive -isolation precautions. -No pneumonia. -Supportive measures. Diabetes mellitus type 2 -accucheck with SSi -serum glucose Dementia -supportive care -continue home medications when appropriate. -Diet as tolerated. -Recommend to increase her fluid intake as tolerated. Left knee pain Obtain knee x-ray Trial of analgesic as tolerated DVT ppx: lovenox DNR
[2023-07-14] MEDS ORDERED: HYDROCODONE/APAP 5/325 MG TAB PO PRN (14:42)
--- NOTE | 2023-07-14 14:50 | RAD REPORT ---
EXAM DESCRIPTION: RAD - Knee 1 View - 07/14/2023 1:39 pm CLINICAL HISTORY: pain to left knee COMPARISON: none FINDINGS/IMPRESSION: Limted evaluation due to positioning. Only a lateral view was submitted. No dis placed fracture identified on this single view.
--- NOTE | 2023-07-14 15:42 | PN ---
Date of Progress Note: 07/14/2023 Subjective: The patient was admitted to the hospital with severe altered mental status, hypernatremi a. The patient had bacteremia. Objective: Vital Signs: Blood pressure 118/45, pulse of 94, afebrile. Chest: Clear to auscultation. Heart: S1, S2. Regular. Abdomen: Soft, nontender. Extremity: Contraction. No edema. Neurologic: Alert. Hemiplegia. Laboratory Data: Hemoglobin 8.5, sodium 143, potassium 4.1, bicarb 28, BUN 14, creatinine 0.6, calci um 8.6, phosphorus 2.5, magnesium 1.8. Current Medications: The patient on, it includes cefazolin, Eliquis, thiamine. Assessment And Plan: 1.Acute kidney injury secondary to prerenal; recovered, resolved. 2.Hypernatremia, depletional. The patient on the recovery phase. I am going to continue with the f ree water. I will resume D5. 3.Hypomagnesemia. We will supplement. 4.Hypophosphatemia, recovered. STEPHEN/QUINTEN Voice ID: [id number] Report ID: [id number]
[2023-07-15] MEDS: CEFAZOLIN SODIUM 2 GM in NA CHLORIDE 0.9% 50 ML IVPB SCH ×3 (01:34→16:42)
[2023-07-15] MEDS: GLUCERNA SHAKE 237 ML CAN PO SCH ×3 (09:00→20:39)
[2023-07-15] MEDS: THIAMINE 200 MG/2 ML INJ IVP SCH ×2 (09:00→20:39)
[2023-07-15] MEDS: APIXABAN 2.5 MG TABLET PO SCH ×2 (09:00→20:39)
--- NOTE | 2023-07-15 09:38 | P.PN ---
Date of Service: 07/15/23 Chief Complaint: unresponsive, septic dehydration Subjective: Improving. No acute events reported over the weekend. Patient seen and examined at bedside. Currently resting in bed, breathing comfortably on room air. In no apparent distress. Physical Examination Temp Pulse Resp BP Pulse Ox 97.0 F 50 16 100/50 L 96 07/15/23 08:00 07/15/23 08:00 07/15/23 08:00 07/15/23 08:00 07/15/23 08:00 General: In no apparent distress. Thin. Aphasic. HEENT: Atraumatic. mucous membranes dry. Respiratory: clear to auscultation bilaterally. Normal air movement. On room air. Cardiovascular: No edema, Regular rate/rhythm. Weak pedal pulses Gastrointestinal: Normal bowel sounds, Non-distended, non-tender. Integumentary: Skin tears scattered bilateral upper extremities. Neurological: Hx CVA, aphasic. Studies Laboratory Data - Reviewed Microbiology Data - Reviewed Imagings Data: - Echocardiogram 07/09: "1. NORMAL LEFT VENTRICULAR EJECTION FRACTION 60-65% WITH NORMAL WALL MOTION 2. DIASTOLIC DYSFUNCTION 3. CALCIFIED AORTIC VALVE WITH MILD AORTIC STENOSIS 4. 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 SEVERE PULMONARY HYPERTENSION WITH RIGHT VENTRICULAR SYSTOLIC PRESSURE GREATER THAN 60 mmHg 6. MILD CONCENTRIC LEFT VENTRICULAR HYPERTROPHY 7. MILD TRICUSPID REGURGITATION" Medications List - Reviewed Assessment and Plan Problem List Sepsis MSSA Bacteremia NSTEMI Hypernatremia, resolved COVID-19 Severe PCM Anemia Sepsis MSSA Bacteremia - Blood cultures 07/08: Staphylococcus aureus (MSSA). Update: also resulting with Staph capitis and Staph hominis, likely a contaminant - Repeat blood culture 07/09: no growth to date - Urinalysis 07/09: extremly turbid; LE 75; RBC >50; WBC 10-20; hyaline casts 5- 10; trace protein - urine culture 07/09: no growth to date - Previously on Cefepime and Vancomycin (07/09-07/11). Switched to Cefazolin IV on 07/11 following blood culture results. - Leukocytosis resolved. Afebrile. - Echocardiogram 07/09: no clear vegetation Covid-19 - Positive covid on 07/08. - Family reports patient tested positive for COVID in May. - Negative Influenza A&B Recommendations - MSSA Bacteremia: Continue antibiotic therapy for 2 weeks (07/09-07/23). On Cefazolin IV negative blood culture obtained 07/09 - Monitor WBC and fever trends - Continue supportive care and nutritional supplementation - pressure offloading measures - fall precautions Case discussed with Bradley Fritz
[2023-07-15] MEDS: D5W 1,000 ML IV SCH (10:22)
--- NOTE | 2023-07-15 14:02 | P.PN ---
Subjective Date of Service: 07/15/23 Chief Complaint: unresponsive, septic dehydration No issues overnight. Patient is not agitated. She is tolerating diet. Physical Examination - Vital Signs Temperature: 97.0 F Blood Pressure: 100/50 Pulse: 50 Respirations: 16 Pulse Ox (%): 96 Assessment And Plan - Plan Physical Exam General: In no apparent distress, awake. Respiratory: Clear to auscultation bilaterally, Normal air movement Cardiovascular: Normal pulses, Regular rate/rhythm, Normal S1 S2 Gastrointestinal: Normal bowel sounds, soft and benign, Non-distended Musculoskeletal: No clubbing, No swelling, Neurological: Nonverbal, she moves all extremities. Left-sided spasticity. Left knee in flexed position. Urinary: Izaguirre catheter Assessment and Plan Sepsis of unknown source Leukocytosis lactic acidosis Septic shock Leukocytosis resolved -lacitic acidosis resolved with IV hydration -1 blood culture bottle grew MSSA. Other blood cultures grew staph capitis and hominis. -Repeat blood culture shows no growth. -Urine culture shows no growth -Continue cefazolin. -Levophed drip weaned off. -Patient is tolerating diet. -Family is considering hospice. -Outpatient antibiotics discussed with Dr. Pitt-can switch IV cefazolin to oral antibiotics on discharge per Dr. Pitt. -Patient to complete 2 weeks of antibiotics per ID. Hypocalcemia Hypokalemia Hypophosphatemia -Continue to replace electrolytes IV as needed hypernatremia severe dehydration/fluid volume deficit -secondary to fluid deficit from dehydration -Hyponatremia resolved. IV D5 water discontinued. -Nephrology is following. -Sodium level has been stable since stopping IV fluid. -Diet as tolerated. Covid positive -isolation precautions. -No pneumonia. -Supportive measures. Diabetes mellitus type 2 -accucheck with SSi -serum glucose Dementia -supportive care -continue home medications when appropriate. -Diet as tolerated. -Recommend to increase her fluid intake as tolerated. Left knee pain X-ray of the knee shows no fracture. Trial of analgesic as tolerated DVT ppx: lovenox DNR
[2023-07-16] MEDS: CEFAZOLIN SODIUM 2 GM in NA CHLORIDE 0.9% 50 ML IVPB SCH ×2 (00:59→07:36)
--- NOTE | 2023-07-16 02:56 | PN ---
Date of Progress Note: 07/15/2023 Chief Complaint: Altered mental status, bacteremia, hypernatremia. History Of Present Illness: The patient presented to the hospital because of altered mental status, generalized weakness. She was found to have acute kidney injury associated with hypovolemia and hype rnatremia. Sodium level has improved with IV fluid infusion. Acute kidney injury improved and resol kathy. Renal function improved to baseline. Review of Systems: Denies chest pain, palpitation. Physical Examination: Lungs: Clear to auscultation bilaterally. Heart: S1, S2. Abdomen: Soft, benign. Extremities: No edema. Laboratory Data: Magnesium 1.8, phosphorus 2.5, calcium 8.6. Creatinine 0.6, BUN 14, potassium 4.1, sodium 143. Impression And Plan: 1.Acute kidney injury secondary to prerenal azotemia. Renal function has improved to baseline in re sponse to IV fluids. 2.Hypernatremia. The patient received IV fluids. Monitor electrolytes closely. 3.Hypomagnesemia. Supplementation as needed. Monitor magnesium. 4.Hypophosphatemia. The patient received supplementation and hypophosphatemia resolved. EB/MODL Voice ID: [id number] Report ID: [id number]
[2023-07-16] MEDS: D5W 1,000 ML IV SCH (05:42)
[2023-07-16] MEDS: THIAMINE 200 MG/2 ML INJ IVP SCH (07:36)
[2023-07-16] MEDS: APIXABAN 2.5 MG TABLET PO SCH (07:36)
[2023-07-16] MEDS: GLUCERNA SHAKE 237 ML CAN PO SCH ×2 (07:36→14:00)
--- NOTE | 2023-07-16 08:57 | P.PN ---
Date of Service: 07/16/23 Chief Complaint: unresponsive, septic dehydration Subjective: No acute events reported overnight. In no apparent distress. ROS unable to obtain. Physical Examination Temp Pulse Resp BP Pulse Ox 96.9 F 86 16 113/52 L 96 07/16/23 08:00 07/16/23 08:00 07/16/23 08:00 07/16/23 08:00 07/16/23 08:00 General: In no apparent distress. Thin. Aphasic. HEENT: Atraumatic. mucous membranes dry. Respiratory: clear to auscultation bilaterally. Normal air movement. On room air. Cardiovascular: No edema, Regular rate/rhythm. Weak pedal pulses Gastrointestinal: Normal bowel sounds, Non-distended, non-tender. Integumentary: Skin tears scattered bilateral upper extremities. Neurological: Hx CVA, aphasic. Studies Laboratory Data - Reviewed Microbiology Data - Reviewed Imagings Data: - Echocardiogram 07/09: "1. NORMAL LEFT VENTRICULAR EJECTION FRACTION 60-65% WITH NORMAL WALL MOTION 2. DIASTOLIC DYSFUNCTION 3. CALCIFIED AORTIC VALVE WITH MILD AORTIC STENOSIS 4. 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 SEVERE PULMONARY HYPERTENSION WITH RIGHT VENTRICULAR SYSTOLIC PRESSURE GREATER THAN 60 mmHg 6. MILD CONCENTRIC LEFT VENTRICULAR HYPERTROPHY 7. MILD TRICUSPID REGURGITATION" Medications List - Reviewed Assessment and Plan Problem List Sepsis MSSA Bacteremia NSTEMI Hypernatremia, resolved COVID-19 Severe PCM Anemia Sepsis MSSA Bacteremia - Blood cultures 07/08: Staphylococcus aureus (MSSA). Update: also resulting with Staph capitis and Staph hominis, likely a contaminant - Repeat blood culture 07/09: no growth to date - Urinalysis 07/09: extremly turbid; LE 75; RBC >50; WBC 10-20; hyaline casts 5- 10; trace protein - urine culture 07/09: no growth to date - Previously on Cefepime and Vancomycin (07/09-07/11). Switched to Cefazolin IV on 07/11 following blood culture results. - Leukocytosis resolved. Afebrile. - Echocardiogram 07/09: no clear vegetation Covid-19 - Positive covid on 07/08. - Family reports patient tested positive for COVID in May. - Negative Influenza A&B Recommendations - MSSA Bacteremia: Continue antibiotic therapy for 2 weeks (07/09-07/23). Currently on Cefazolin IV. Consider switch to Cephalexin PO upon discharge to complete remainder of antibiotic course. - Monitor WBC and fever trends - Continue supportive care and nutritional supplementation - pressure offloading measures - fall precautions Case discussed with Bradley Fritz
[2023-07-16 09:47] VITALS: O2SAT 95
--- NOTE | 2023-07-16 13:11 | P.DS ---
Admission Date: 07/08/23 Discharge Date: 07/16/23 Disposition: HOSPICE-HOME Reason for Admission: unresponsive, septic dehydration Consultations: Nephrology - Dr. Luna, Dr. Hoffman, Dr. Wayne-Froy Cardiology - Dr. Jaime GOMEZ - Dr. Pitt Brief History of Present Illness: 81yo F, PMH: hypertension, hyperlipidemia, recent stroke (with residual left- sided weakness unable to communicate), recent COVID-pneumonia, and diabetes type 2 Patient presents to the ED when found unresponsive at home. Family reports EMS was called and patient was found drooling in bed and unresponsive. Last seen normal was last night 07/07. When EMS arrived patient was hypoxic with minimal responsiveness to pain. But she was bagged on oxygen upon arrival with some improvement in mental status, able to open eyes and follow some commands. In itial vital signs blood pressure 116/54, heart rate 79, respirations 16, pulse ox 100% on nasal cannula, temperature 98.9. CT head images negative for bleeding or mass per ED's interpretation. Chest echo x-ray reported with partial resolution in left lung opacities, nodular opacity mid lateral left lung either stable or diminished in size and hyperaerated lungs. WBCs 16, lactic acid 4.0, sodium 157, potassium 2.2, CO2 of 13, anion gap 8.2, BUN/ creatinine 47/1.09, CK7 198, troponin 188.7 ABG shows pH 7.37, CO2 32.3, O2 100.0, HCO3 18.2, UA negative. She is continue to test positive for COVID that she had 6 weeks ago. EKG significant for prolonged QT. While in the ED she received cefepime 1 g, calcium gluconate 2 g, potassium chloride 20 mEq, and normal saline bolus. She responded well and tolerated treatment. Of note, she was admitted to [facility] for her stroke staying 6 weeks, then went to the senior care for 4 weeks where she was positive for COVID pneumonia, now discharged from the senior care for 6 weeks. Son is POA and presented paperwork for DNR. Hospital Course: Problem List: Septic shock likely secondary to MSSA bacteremia MSSA Bacteremia NSTEMI COVID-19 positive Hypernatremia, resolved Hypocalcemia Hypokalemia Hypophosphatemia Dementia Anemia Physical Exam: GEN: Awake, NAD HEENT: Normal conjunctiva, sclera anicteric CV: Regular rate and rhythm, no edema Pulm: Nonlabored respirations on room air ABD: Soft, nontender, nondistended MSK: No joint tenderness Integumentary: No rashes Neuro: Nonverbal, she moves all extremities. Left-sided spasticity. Left knee in flexed position. chronic Izaguirre in place Vital Signs/Physical Exam: Temp Pulse Resp BP Pulse Ox 96.9 F 86 16 113/52 L 96 07/16/23 08:00 07/16/23 08:00 07/16/23 08:00 07/16/23 08:00 07/16/23 08:00 Laboratory Data at Discharge: WBC 7.00 thou/uL (4.3-10.9) 07/12/23 03:00 Hgb 8.5 g/dL (12.0-15.0) L 07/12/23 03:00 Hct 24.6 % (36.0-45.0) L 07/12/23 03:00 Plt Count 240 thou/uL (152-406) 07/12/23 03:00 PT 24.1 SECONDS (9.5-12.5) H 07/08/23 11:15 INR 2.19 07/08/23 11:15 APTT 28.6 SECONDS (24.3-36.9) 07/08/23 11:15 Sodium 143 mEq/L (136-145) 07/14/23 04:11 Potassium 4.1 mEq/L (3.5-5.1) 07/14/23 04:11 BUN 14 mg/dL (7-18) 07/14/23 04:11 Creatinine 0.61 mg/dL (0.55-1.02) 07/14/23 04:11 Glucose 126 mg/dL (74-106) H 07/14/23 04:11 Uric Acid 5.8 mg/dL (2.6-6.0) 07/10/23 04:16 Phosphorus 2.5 mg/dL (2.5-4.9) 07/14/23 04:11 Magnesium 1.8 mg/dL (1.6-2.4) 07/14/23 04:11 Total Bilirubin 0.4 mg/dL (0.2-1.0) 07/09/23 04:29 AST 69 U/L (15-37) H 07/09/23 04:29 ALT 59 U/L (13-56) H 07/09/23 04:29 Alkaline Phosphatase 66 U/L (45-117) 07/09/23 04:29 Home Medications: Alendronate Sodium [Binosto] 70 mg PO Q7D 04/27/23 Aspirin Chewable [Aspirin Chewable*] 81 mg PO DAILY 04/27/23 Atorvastatin Calcium [Lipitor] 40 mg PO BEDTIME 04/27/23 Calcium Carbonate/Vitamin D3 [Calcium 600 with Vit D Chew Tb] 600 mg PO DAILY 04/27/23 Letrozole [Femara*] 2.5 mg PO DAILY 04/27/23 Metformin HCl 500 mg PO BID 04/27/23 hydroCHLOROthiazide [Hydrochlorothiazide] 25 mg PO DAILY 04/27/23 Amlodipine [Norvasc*] 5 mg PO DAILY tab 05/10/23 Apixaban [Eliquis *] 2.5 mg PO BID #60 tablet 05/10/23 Cefdinir [Cefdinir*] 300 mg PO BID cap 05/10/23 Ensure Enlive 237 ml PO TID can 05/10/23 Folic Acid 0.4 mg PO DAILY #30 05/10/23 Losartan Potassium [Cozaar*] 50 mg PO BID 05/10/23 Metoprolol Tartrate [Lopressor*] 25 mg PO BID 6AM 6PM tab 05/10/23 Hydrocodone 5/APAP 325 [Hooper 5/325*] 1 tab PO Q6H PRN tab 07/16/23 cephALEXin [Cephalexin] 500 mg PO Q8H 7 Days #21 tab 07/16/23 New Medications: cephALEXin [Cephalexin] 500 mg PO Q8H 7 Days #21 tab Physician Discharge Instructions: Patient presented to the ED after being found unresponsive in bed at home. She was found to have MSSA bacteremia complicated by covid-19. ID and pulm were consulted. Patient was initially given empiric cefepime/vanc (07/09-07/11) and switched to IV cefazolin following culture results. Patient remained afebrile throughout hospitalization and leukocytosis resolved. Patient is to complete x more days of ___ for a total of 2 week antibiotic treatment. During her hospitalization, patient was noted to be hypernatremic secondary to fluid deficit from dehydration. Nephrology was consulted. Sodium level have been stable since stopping IV fluid. Medications: Follow up: PCP 3-5 days Nephrology 1-2 weeks. Followup: NONE,NONE [Primary Care Provider] - Time spent managing pt's care (in minutes): 45
[2023-07-16 13:46] VITALS: BP 113/55; TEMP 97.6
--- NOTE | 2023-07-16 18:26 | PN ---
Date of Progress Note: 07/16/2023 Subjective: The patient was admitted with poor intake, severe hypernatremia. Patient was hydrated. Hyponatremia gradually started improving. Patient had electrolyte imbalance, status post supplement . Objective: Vital Signs: Blood pressure 113/52, pulse of 86, afebrile. Chest: Clear to auscultation. Heart: S1, S2. Systolic murmur. Abdomen: Soft, nontender. Extremity: No edema. Contraction. Neuro: Patient confused. Hemiplegic. Laboratory Data: Hemoglobin 8.5, sodium 143, potassium 4.1, bicarb 28, BUN 14, creatinine 0.6, calci um 8.6, phosphorus 2.5, magnesium 1.8. Current Medications: The patient on, include: 1.Cefazolin. 2.Eliquis. 3.D5. 4.Thiamine. Assessment And Plan: 1.Acute kidney injury secondary to prerenal, recovered, resolved. 2.Hypernatremia secondary to depletional. Continue hydration. I will follow up the lab for tomorro w. 3.Hypomagnesemia, hypophosphatemia; status post supplement. We will follow up that. 4.Deconditioning. Continue PT, OT. STEPHEN/QUINTEN Voice ID: [id number] Report ID: [id number]
== END 2023-07-16 15:54 | disposition hospice, home (50) | DRG 871 ==
LOC: ER 10:07 → ERHOLD 14:06 → 3RD-ICU 16:59 → 4TH 07-11 13:43
PROVIDERS: ADMIT Hospitalist; ATTEND Hospitalist
PROC: 3E033XZ Introduction of Vasopressor into Peripheral Vein, Percutaneous Approach (ICD-10-PCS; principal; 2023-07-08)
DX: A41.89 Other specified sepsis (principal); E43 Unspecified severe protein-calorie malnutrition; G93.41 Metabolic encephalopathy; I21.4 Non-ST elevation (NSTEMI) myocardial infarction; U07.1 COVID-19; R65.21 Severe sepsis with septic shock; E87.1 Hypo-osmolality and hyponatremia; I69.354 Hemiplegia and hemiparesis following cerebral infarction affecting left non-dominant side; R64 Cachexia; Z68.1 Body mass index [BMI] 19.9 or less, adult; E87.20 Acidosis, unspecified; E87.0 Hyperosmolality and hypernatremia; R47.01 Aphasia; A41.01 Sepsis due to Methicillin susceptible Staphylococcus aureus; I10 Essential (primary) hypertension; E83.51 Hypocalcemia; E86.0 Dehydration; E87.6 Hypokalemia; D64.9 Anemia, unspecified; E11.9 Type 2 diabetes mellitus without complications; M25.562 Pain in left knee; E83.39 Other disorders of phosphorus metabolism; G30.9 Alzheimer's disease, unspecified; F02.80 Dementia in other diseases classified elsewhere, unspecified severity, without behavioral disturbance, psychotic disturbance, mood disturbance, and anxiety; R09.02 Hypoxemia; Z66 Do not resuscitate; Z85.3 Personal history of malignant neoplasm of breast; Z51.5 Encounter for palliative care; Z79.01 Long term (current) use of anticoagulants; Z79.82 Long term (current) use of aspirin; Z90.12 Acquired absence of left breast and nipple; Z79.84 Long term (current) use of oral hypoglycemic drugs; Z79.899 Other long term (current) drug therapy
CPT/HCPCS: 36415; 70450; 71045; 73560; 74176; 80048; 80053; 80069; 80202; 81001; 81003; 82533; 82550; 82570; 82805; 82947; 83605; 83735; 84100; 84132; 84156; 84300; 84439; 84443; 84484; 84550; 85025; 85379; 85610; 85730; 87040; 87077; 87086; 87088; 87186; 87205; 87635; 87804; 92526; 92610; 93005; 93306; 97161; 97530; 99284; J0612; J0692; J3411; J3475; J3480; J3486; J7030; J7040; J7050; J7060